=== PATIENT | female | born 1955 | race Caucasian/White ===

== ENCOUNTER 2018-11-03 13:12 | Emergency (ER) | payer MEDICARE, MEDICAID ==
[~2018-11-03] VITALS: Ht 144.8 cm; Wt 39.0 kg
[~2018-11-03 13:12] MED LIST: BSP10T PO; CPR250T PO; MEDR150D4 IM; OMEP-10 PO; RISP1TAB PO
--- OUTSIDE RECORDS SUMMARY | 2018-11-03 13:18 | XMS REPORT ---
Author Author STEVE QUIROS Organization [facility] Address [address] [place] [address] Care Team Providers Care Work Study Student Name Role Phone STEVE QUIROS Unavailable PROBLEMS Type Condition ICD9-CM Code EOR30-GG Code Onset Dates Condition Status SNOMED Code Problem Raynaud disease I73.00 Active 718044483 Problem Mood swings F39 Active 44612045 Problem Mental retardation F79 Active 12336408 Problem Esophagitis K20.9 Active 30067887 Problem Scoliosis, unspecified scoliosis type, unspecified spinal region M41.9 Active 986888073 Problem Anemia D64.9 Active 623015714 ALLERGIES No Information ENCOUNTERS Encounter Location Date Diagnosis [place] [address] [address] Apr, [place] [address] [address] Feb, Dental examination Z01.20 [place] [address] [address]- [address] 27 Feb, 2018 Medicare annual wellness visit, initial Z00.00 ; Raynaud disease I73.00 ; Mental retardation F79 and Encounter for immunization Z23 [place] [address] [place] [id number] [place] [address]- [address]99 Feb, Scoliosis, unspecified scoliosis type, unspecified spinal region M41.9 [place] [address] [address]- [address] Feb, [place] [address] [address]- [address] January, [place] [address] [address]- [address] Sep, [facility] [address] [address] Mar, Scoliosis, unspecified scoliosis type, unspecified spinal region M41.9 ; Mental retardation F79 and Breast cancer screening Z12.39 [facility] [address] [id number] [id number] Feb, Dental examination Z01.20 [place] [address] [place] [id number] [place] [address]63- 2404 Feb, Encounter for immunization Z23 [place] [address] [place] [id number] [place] [address] 26151- 9798 January, Anemia D64.9 and Screening, lipid Z13.220 [place] [address] [place] [id number] [place] [address] 94232- 2651 January, Screening, lipid Z13.220 ; Anemia D64.9 and Encounter for immunization Z23 [place] [address] [place] [id number] [place] [address] 17895- 1845 Dec, [place] [address] [place] [id number] [place] [address] 18006- 1767 Dec, Encounter for Depo-Provera contraception Z30.42 [place] [address] [place] [id number] [place] [address] 98427- 6942 Sep, Encounter for Depo-Provera contraception Z30.42 [facility] [address] [place] [id number] [place] [address] 79196 -6156 Jul, Tinea pedis of right foot B35.3 [place] [address] [place] [id number] [place] [address] 74570- 1156 Jun, Encounter for Depo-Provera contraception Z30.42 [facility] [address] [place] [id number] [place] [address] 24912- 0658 Apr, Encounter for Depo-Provera contraception Z30.42 [place] [address] [place] [address]- 05[address] January, Encounter for Depo-Provera contraception Z30.42 [facility] [id number] [place] [address] 99168- 7980 January, [facility] [address] [place] [id number] [address] Dec, Encounter for dental examination Z01.20 [facility] [address] [place] [id number] [place] [address] 51486- 2399 Nov, Anemia D64.9 ; Mental retardation F79 ; Scoliosis, unspecified scoliosis type, unspecified spinal region M41.9 ; Raynaud disease I73.00 ; Mood swings F39 and Screening, lipid Z13.220 [facility] [address] [place] [id number] [place] [address] 90040- 2147 Nov, Mental retardation F79 ; Scoliosis, unspecified scoliosis type, unspecified spinal region M41.9 ; Anemia D64.9 ; Raynaud disease I73.00 ; Mood swings F39 and Screening, lipid Z13.220 [facility] [id number] [place] [address] 19888- 1497 Oct, Encounter for Depo-Provera contraception Z30.42 [facility] [id number] [place] [address] 03398- 9740 Oct, [facility] [id number] [place] [address] 85114- 1170 Sep, [facility] [id number] [place] [address] 01631- 3742 Aug, Encounter for Depo-Provera contraception Z30.42 [facility] [address] [place] [id number] [place] [address] 36590- 7274 May, [facility] [id number] [place] [address] 65599- 1906 May, Encounter for Depo-Provera contraception V25.49 [facility] [address] [address] 6[address] 25 Feb, 2015 Encounter for contraceptive management V25.9 and Unspecified contraceptive management V25.9 [facility] [address] [facility] [id number] [address] 14 Dec, 2014 [facility] [address] [address]- 2090 Dec, [facility] [address] [facility] [id number] [address]- 1334 Oct, [facility] [id number] [place] [address] 1259 Oct, [facility] [address] [address] 0415 Oct, [facility] [address] [address]- 0226 Oct, [facility] [address] [address]- 2921 Oct, [facility] [address] [address]- 9381 Sep, [facility] [address] [address]- 5632 Sep, [facility] [address] [address]- 4160 Sep, [facility] [address] [place] [id number] [address]- 4578 Sep, [facility] [address] [address]- 9068 Aug, [facility] [address] [address] Aug, [facility] [address] [place] [id number] [address] Aug, [facility] [place] [facility] [address] [id number] [place] [address]- 2804 Aug, [facility] [place] [facility] [address] [id number] [place] [address]- 5222 Jul, [facility] [place] [facility] [address] [id number] [place] [address]- 2093 Jul, [facility] [place] [facility] [address] [id number] [place] [address]- 6785 Jul, [facility] [place] [facility] [address] [id number] [place] [address]- 1425 Jul, [facility] [place] [facility] [address] [id number] [place] [address]- 3379 Jun, [facility] [place] [facility] [address] [id number] [place] [address] Jun, [facility] [place] [facility] [address] [id number] [place] [address]- 6725 Jun, [facility] [place] [facility] [address] [id number] [place] [address]- 3338 Jun, [facility] [place] [facility] [address] [id number] [place] [address]- 9179 Apr, [facility] [place] [facility] [address] [id number] [place] [address] Apr, [facility] [place] [facility] [address] [id number] [place] [address]- 7723 Mar, [facility] [place] [facility] [address] [id number] [place] [address]- 8939 Mar, [facility] [place] [facility] [address] [id number] [place] [address]- 0616 Mar, [facility] [place] [facility] [address] [id number] [place] [address]- 1707 Mar, [facility] [place] [facility] [address] [id number] [place] [address]- 7772 Feb, [facility] [place] [facility] [address] [id number] [place] [address]- 2441 Feb, [facility] [place] [facility] [address] [id number] [place] [address]- 6441 Dec, [facility] [place] [facility] [address] [id number] [place] [address]- 2757 Dec, [facility] [place] [facility] [address] [id number] [place] [address]- 8063 Dec, [facility] [place] [facility] [address] [id number] [place] [address]- 0785 Dec, [facility] [place] [facility] [address] [id number] [place] [address]- 1160 Dec, [facility] [place] [facility] [address] [id number] [place] [address]- 9475 Dec, [facility] [place] [facility] [address] [id number] [place] [address]- 2387 Dec, [facility] [place] [facility] [address] [id number] [place] [address]- 8160 Nov, [facility] [place] [facility] [address] [id number] [place] [address]- 3539 Nov, [facility] [place] [facility] [address] [id number] [place] [address]- 9491 Oct, [facility] [place] [facility] [address] [id number] [place] [address]- 6451 Oct, [facility] [place] [facility] [address] [id number] [place] [address]- 7411 Sep, [facility] [place] [facility] [address] [id number] [place] [address]- 3722 Sep, [facility] [place] [facility] [address] [id number] [place] [address]- 1225 Aug, [facility] [place] [facility] [address] [id number] [place] [address]- 0973 Aug, [facility] [address] [id number] [place] [address]- 9753 Jul, [facility] [place] [facility] [address] [id number] [place] [address]- 4376 Jul, [facility] [address] [id number] [place] [address]- 6970 Jul, [facility] [place] [facility] [address] [id number] [place] [address]- 6531 Jul, [facility] [address] [id number] [place] [address]- 0558 Jun, [facility] [place] [facility] [address] [id number] [place] [address] Jun, [facility] [address] [id number] [place] [address]- 3939 Jun, [facility] [address] [id number] [place] [address]- 6473 Jun, [facility] [place] [facility] [address] [id number] [place] [address]- 2085 Apr, [facility] [address] [id number] [place] [address]- 5166 Apr, [facility] [place] [facility] [address] [id number] [place] [address]- 0306 Mar, [facility] [place] [facility] [address] [id number] [place] [address]- 6401 Feb, [facility] [place] [facility] [address] [id number] [place] [address]- 0075 January, [facility] [place] [facility] [address] [id number] [place] [address]- 2546 January, [facility] [place] [facility] [address] [id number] [place] [address]- 9156 Nov, [facility] [place] [facility] [address] [id number] [place] [address]- 9077 Oct, [facility] [place] [facility] [address] [id number] [place] [address]- 7670 Oct, [facility] [place] [facility] [address] [id number] [place] [address]- 5057 Sep, [facility] [place] [facility] [address] [id number] [place] [address]- 2534 Aug, [facility] [place] [facility] [address] [id number] [place] [address]- 2286 Jul, [facility] [place] [facility] [address] [id number] [place] [address]- 4007 Jul, [facility] [place] [facility] [address] [id number] [place] [address]- 3413 Jul, [facility] [place] [facility] [address] [id number] [place] [address]- 0167 Jul, [facility] [place] [facility] [address] [id number] [place] [address]- 3639 Jul, [facility] [place] [facility] [address] [facility] [id number] [address]- 1801 Jul, [facility] [place] [facility] [address] [id number] [place] [address]- 8457 Jun, [facility] [place] [facility] [address] [id number] [place] [address]- 1336 Jun, [facility] [place] [facility] [address] [id number] [place] [address]- 9399 May, [facility] [place] [facility] [address] [id number] [place] [address]- 8288 17 May, 2012 [facility] [place] [facility] [address] [facility] [id number] [place] 2880 11 May, 2012 [facility] [place] [facility] [address] [id number] [place] [address]- 8764 Apr, [facility] [address] [id number] [place] [address]- 2167 Apr, [facility] [place] [facility] [address] [id number] [place] [address]- 3960 Apr, [facility] [place] [facility] [address] [id number] [place] [address]- 7646 Apr, [facility] [place] [facility] [address] [id number] [place] [address]- 6902 Feb, [facility] [place] [facility] [address] [id number] [place] [address]- 4642 Feb, [facility] [place] [facility] [address] [id number] [place] [address]- 0901 January, [facility] [address] [id number] [place] [address]- 9643 January, [facility] [place] [facility] [address] [id number] [place] [address]- 5482 Dec, [facility] [place] [facility] [address] [id number] [place] [address]- 8067 Oct, [facility] [place] [facility] [address] [id number] [place] [address]- 3071 Oct, [facility] [place] [facility] [id number] [place] [address]- 9000 Oct, [facility] [place] [facility] [address] [id number] [place] [address]- 3079 Sep, [facility] [place] [facility] [address] [id number] [place] [address]- 0022 Sep, [facility] [place] [facility] [address] [id number] [place] [address]- 5907 Sep, [facility] [place] [facility] [address] [id number] [place] [address]- 1916 Sep, [facility] [place] [facility] [address] [id number] [place] [address]- 4988 Sep, [facility] [place] [facility] [address] [id number] [place] [address]- 2799 Sep, [facility] [place] [facility] [address] [id number] [place] [address]- 6873 Jul, [facility] [place] [facility] [address] [id number] [place] [address], [place] [address]- 1287 Jul, [facility] [place] [facility] [address] [id number] [place] [address]- 7013 Jul, [facility] [place] [facility] [address] [id number] [place] [address]- 4145 Jul, [facility] [place] [facility] [address] [id number] [place] [address]- 3030 Jul, [facility] [place] [facility] [address] [id number] [place] [address]- 5860 Jun, [facility] [place] [facility] [address] [id number] [place] [address]- 8664 Mar, [facility] [place] [facility] [address] [id number] [place] [address]- 3163 Jul, [facility] [place] [facility] [address] [id number] [place] [address]- 1484 17 Jul, 2010 [facility] [place] [facility] [address] [id number] [place] [address]- 3240 Jul, [facility] [place] [facility] [address] [id number] [place] [address]- 2492 27 Jun, 2010 [facility] [place] [facility] [address] [id number] [place] [address]- 5827 Jun, [facility] [place] [facility] [address] [id number] [place] [address]- 4181 18 Jun, 2010 [facility] [place] [facility] [address] [id number] [place] [address]- 0856 Nov, [facility] [address] [facility] [id number] [address]- 2546 Oct, [facility] [address] [id number] [address]- 2546 Aug, [facility] [address] [facility] [id number] [place] [address] 2546 Jun, [facility] [address] [id number] [address]- 5796 Jun, IMMUNIZATIONS No Known Immunizations SOCIAL HISTORY Never Assessed REASON FOR VISIT Back Brace f/u PLAN OF CARE VITAL SIGNS MEDICATIONS Unknown Medications RESULTS No Results PROCEDURES No Known procedures INSTRUCTIONS MEDICATIONS ADMINISTERED No Known Medications MEDICAL (GENERAL) HISTORY Type Description Date Medical History Profound MR Medical History Esophagitis Medical History History of Anemia Medical History Severe scoliosis Medical History Stereotypical habit disorder Surgical History teeth extraction
--- OUTSIDE RECORDS SUMMARY | 2018-11-03 13:18 | XMS REPORT ---
Author Author ANDREI OWENS [facility] Address [address] [place] [address] Care Team Providers Care Slaughterer Religious Ritual Name Role Phone ANDREI OWENS Unavailable PROBLEMS Type Condition ICD9-CM Code TCS55-ZO Code Onset Dates Condition Status SNOMED Code Problem Raynaud disease I73.00 Active 301856888 Problem Mood swings F39 Active 57765399 Problem Mental retardation F79 Active 00241764 Problem Esophagitis K20.9 Active 81231781 Problem Scoliosis, unspecified scoliosis type, unspecified spinal region M41.9 Active 156585868 Problem Anemia D64.9 Active 347463784 ALLERGIES Substance Reaction Event Type Date Status Tuberculin PPD Unknown Drug Allergy Feb, Active avoid citrus/pineapple Unknown Non Drug Allergy Feb, Active ENCOUNTERS Encounter Location Date Diagnosis [place] [address] [address] Apr, [place] [address] 75883- 0988 Feb, Dental examination Z01.20 [place] [address] [place] [id number] [place] [address] 15951- 8383 Feb, Medicare annual wellness visit, initial Z00.00 ; Raynaud disease I73.00 ; Mental retardation F79 and Encounter for immunization Z23 [place] [address] [place] [id number] [place] [address] 86977- 3446 Feb, Scoliosis, unspecified scoliosis type, unspecified spinal region M41.9 [place] [address] [place] [id number] [place] [address] 07785- 4199 Feb, [place] [address] [address]- [address]556 January, [facility] [id number] [place] [address] 43945- 5028 Sep, [facility] [address] [place] [id number] [place] [address] 26002- 0000 Mar, Scoliosis, unspecified scoliosis type, unspecified spinal region M41.9 ; Mental retardation F79 and Breast cancer screening Z12.[address] [id number] [id number] Feb, Dental examination Z01.20 [place] [id number] [place] [address] 71419- 9460 Feb, Encounter for immunization Z23 [place] [id number] [place] [address] 48726- 0564 January, Anemia D64.9 and Screening, lipid Z13.220 [place] [id number] [place] [address] 06307- 1572 January, Screening, lipid Z13.220 ; Anemia D64.9 and Encounter for immunization Z23 [place] [address] [place] [id number] [place] [address] 57213- 0063 Dec, [place] [address] [place] [id number] [place] [address] 86007- 4536 Dec, Encounter for Depo-Provera contraception Z30.42 [place] [address] [place] [id number] [place] [address] 90383- 8882 Sep, Encounter for Depo-Provera contraception Z30.42 [facility] [address] [place] [id number] [place] [address] 63777 -9732 Jul, Tinea pedis of right foot B35.3 [place] [address] [place] [id number] [place] [address] 90363- 6911 Jun, Encounter for Depo-Provera contraception Z30.42 [facility] [address] [place] [id number] [place] [address] 18306- 9875 Apr, Encounter for Depo-Provera contraception Z30.42 [facility] [address] [address] 26[address] January, Encounter for Depo-Provera contraception Z30.42 [facility] [address] [place] [id number] [place] [address] 64716- 7496 January, [facility] [address] [place] [id number] [place] [id number] Dec, Encounter for dental examination Z01.20 [facility] [address] [place] [id number] [place] [address] 84601- 8149 Nov, Anemia D64.9 ; Mental retardation F79 ; Scoliosis, unspecified scoliosis type, unspecified spinal region M41.9 ; Raynaud disease I73.00 ; Mood swings F39 and Screening, lipid Z13.220 [facility] [address] [place] [id number] [place] [address] 28509- 2453 Nov, Mental retardation F79 ; Scoliosis, unspecified scoliosis type, unspecified spinal region M41.9 ; Anemia D64.9 ; Raynaud disease I73.00 ; Mood swings F39 and Screening, lipid Z13.220 [facility] [id number] [place] [address] 22067- 8173 Oct, Encounter for Depo-Provera contraception Z30.42 [facility] [address] [place] [address] 37326- 0139 Oct, [facility] [address] [place] [id number] [place] [address] 19106- 6405 Sep, [facility] [address] [place] [id number] [place] [address] 78651- 7532 Aug, Encounter for Depo-Provera contraception Z30.42 [facility] [address] [place] [address] 05874- 8367 May, [facility] [address] [place] [id number] [place] [address] 31031- 0460 May, Encounter for Depo-Provera contraception V25.49 [facility] [address] 118[address] Feb, Encounter for contraceptive management V25.9 and Unspecified contraceptive management V25.9 [facility] [address] [address] 1856 14 Dec, 2014 [facility] [address] [place] [address] 64310- 7804 Dec, [facility] [address] [address]- 9591 Oct, [facility] [address] [place] [address] 587927- 7396 Oct, [facility] [address] [place] [address] 73756- 5183 Oct, [facility] [address] [address]- 1497 Oct, [facility] [address] [address]- 8396 Oct, [facility] [address] [address]- 3174 Sep, [facility] [address] [address]- 8850 Sep, [facility] [address] [address]- 9835 Sep, [facility] [address] 3470 Sep, [facility] [address] 0468 Aug, [facility] [address] 8121 Aug, [facility] [place] [facility] [address] [id number] [place] [address]- 7035 Aug, [facility] [place] [facility] [address] [id number] [place] [address]- 7379 Aug, [facility] [place] [facility] [address] [id number] [place] [address]- 3173 Jul, [facility] [place] [facility] [address] [id number] [place] [address]- 2760 Jul, [facility] [place] [facility] [address] [id number] [place] 6508 Jul, [facility] [place] [facility] [address] [id number] [place] [address]- 6712 Jul, [facility] [place] [facility] [address] [id number] [place] 5794 Jun, [facility] [place] [facility] [address] [id number] [place] [address]- 1554 Jun, [facility] [place] [facility] [address] [id number] [place] [address]- 2277 Jun, [facility] [place] [facility] [address] [id number] [place] [address]- 2485 Jun, [facility] [place] [facility] [address] [id number] [place] [address]- 1857 Apr, [facility] [place] [facility] [address] [id number] [place] [address]- 9005 Apr, [facility] [place] [facility] [address] [id number] [place] [address]- 6936 Mar, [facility] [place] [facility] [address] [id number] [place] [address]- 5294 Mar, [facility] [place] [facility] [address] [id number] [place] [address]- 1608 Mar, [facility] [place] [facility] [address] [id number] [place] [address]- 9671 Mar, [facility] [place] [facility] [address] [id number] [place] [address]- 3024 Feb, [facility] [place] [facility] [address] [id number] [place] [address]- 2446 Feb, [facility] [place] [facility] [address] [id number] [place] [address]- 9994 Dec, [facility] [place] [facility] [address] [id number] [place] [address]- 0178 Dec, [facility] [place] [facility] [address] [id number] [place] [address]- 3476 Dec, [facility] [place] [facility] [address] [id number] [place] [address]- 9245 Dec, [facility] [place] [facility] [address] [id number] [place] [address]- 9672 Dec, [facility] [place] [facility] [address] [id number] [place] [address]- 1396 Dec, [facility] [place] [facility] [address] [id number] [place] [address]- 7731 Dec, [facility] [place] [facility] [address] [id number] [place] [address]- 5313 Nov, [facility] [place] [facility] [address] [id number] [place] [address]- 5751 Nov, [facility] [place] [facility] [address] [id number], [place] [address]- 9988 Oct, [facility] [place] [facility] [address] [id number] [place] [address]- 8047 Oct, [facility] [place] [facility] [address] [id number] [place] [address]- 4744 Sep, [facility] [place] [facility] [address] [id number] [place] [address]- 8931 Sep, [facility] [place] [facility] [address] [id number] [place] [address]- 3139 Aug, [facility] [address] [id number] [place] [address]- 4561 Aug, [facility] [place] [facility] [address] [id number] [place] [address]- 4709 Jul, [facility] [address] [id number] [place] [address]- 8987 Jul, [facility] [place] [facility] [address] [id number] [place] [address]- 0103 Jul, [facility] [address] [id number] [place] [address]- 4953 Jul, [facility] [address] [id number] [place] [address]- 2048 Jun, [facility] [address] [id number] [place] [address]- 8795 Jun, [facility] [address] [id number] [place] [address]- 8420 Jun, [facility] [address] [id number] [place] [address]- 7148 Jun, [facility] [address] [id number] [place] [address]- 3292 Apr, [facility] [place] [facility] [address] [id number] [place] [address]- 8537 Apr, [facility] [place] [facility] [address] [id number] [place] [address]- 2475 Mar, [facility] [place] [facility] [address] [id number] [place] [address]- 3232 Feb, [facility] [place] [facility] [address] [id number] [place] [address]- 2546 January, [facility] [place] [facility] [address] [id number] [place] [address]- 4674 January, [facility] [place] [facility] [address] [id number] [place] [address]- 9107 Nov, [facility] [place] [facility] [address] [id number] [place] [address]- 0692 Oct, [facility] [place] [facility] [address] [id number] [place] [address]- 8106 Oct, [facility] [place] [facility] [address] [id number] [place] [address]- 7238 Sep, [facility] [place] [facility] [address] [id number] [place] [address]- 4489 Aug, [facility] [place] [facility] [address] [id number] [place] [address]- 4550 Jul, [facility] [place] [facility] [address] [id number] [place] [address]- 6826 Jul, [facility] [place] [facility] [address] [id number] [place] [address]- 7579 Jul, [facility] [place] [facility] [address] [id number] [place] [address]- 7339 Jul, [facility] [place] [facility] [address] [id number] [place] [address]- 1670 Jul, [facility] [place] [facility] [address] [id number] [place] [address]- 4986 Jul, [facility] [place] [facility] [address] [id number], [place] [address]- 0307 Jun, [facility] [place] [facility] [address] [id number] [place] [address]- 2400 Jun, [facility] [place] [facility] [address] [id number] [place] [address]- 9266 May, [facility] [place] [facility] [address] [id number] [place] [address]- 4016 17 May, 2012 [facility] [place] [facility] [address] [id number] [place] [address]- 0365 May, [facility] [place] [facility] [address] [id number] [place] [address]- 0398 Apr, [facility] [place] [facility] [address] [id number] [place] [address]- 0705 Apr, [facility] [place] [facility] [address] [id number] [place] [address]- 3234 Apr, [facility] [place] [facility] [address] [id number] [place] [address]- 8734 Apr, [facility] [place] [facility] [address] [id number] [place] [address]- 3398 Feb, [facility] [place] [facility] [address] [id number] [place] [address]- 8813 Feb, [facility] [place] [facility] [address] [id number] [place] [address]- 8138 January, [facility] [place] [facility] [address] [id number] [place] [address]- 7876 January, [facility] [place] [facility] [address] [id number] [place] [address]- 5041 Dec, [facility] [place] [facility] [address] [id number] [place] [address]- 5163 Oct, [facility] [place] [facility] [address] [id number] [place] [address]- 3489 16 Oct, 2011 [facility] [place] [facility] [address] [id number] [place] [address]- 1821 Oct, [facility] [place] [facility] [address] [id number] [place] [address]- 6620 Sep, [facility] [place] [facility] [address] [id number] [place] [address]- 6680 Sep, [facility] [place] [facility] [address] [id number] [place] [address]- 3680 Sep, [facility] [place] [facility] [address] [id number] [place] [address]- 8047 Sep, [facility] [place] [facility] [address] [id number] [place] [address]- 1002 Sep, [facility] [place] [facility] [address] [id number] [place] [address]- 6953 Sep, [facility] [place] [facility] [address] [id number] [place] [address], [place] [address]- 8518 Jul, [facility] [place] [facility] [address] [id number] [place] [address]- 4580 Jul, [facility] [place] [facility] [address] [id number] [place] [address]- 1255 Jul, [facility] [place] [facility] [address] [id number] [place] [address]- 9874 Jul, [facility] [place] [facility] [address] [id number] [place] [address]- 7997 Jul, [facility] [place] [facility] [address] [id number] [place] [address]- 7608 Jun, [facility] [place] [facility] [address] [id number] [place] [address]- 7751 Mar, [facility] [place] [facility] [address] [id number] [place] [address]- 9260 Jul, [facility] [place] [facility] [address] [id number], [place] [address]- 6657 Jul, [facility] [place] [facility] [address] [id number] [place] [address]- 1510 Jul, [facility] [place] [facility] [address] [id number] [place] [address]- 9931 Jun, [facility] [place] [facility] [address] [id number] [place] [address]- 2352 Jun, [facility] [place] [facility] [address] [id number], [place] [address]- 2546 Jun, [facility] [address] [facility] [id number], [place] [address]- 2546 Nov, [facility] [address] [facility] [id number], [place] [address]- 2546 Oct, [facility] [address] [facility] [id number], [place] [address]- 2546 Aug, [facility] [address] [facility] [id number], [place] [address]- 2546 Jun, [facility] [address] [facility] [id number], [place] [address] 2546 Jun, IMMUNIZATIONS No Known Immunizations SOCIAL HISTORY Never Assessed REASON FOR VISIT soft tissue check in internal med PLAN OF CARE Activity Details Follow Up prn Reason: VITAL SIGNS MEDICATIONS Medication Instructions Dosage Frequency Start Date End Date Duration Status Naproxen Sodium 220 mg take 1 tablet (220 mg) by oral route every 8 hours as needed Sep, Active Omeprazole 20 MG TAKE 1 CAPSULE BY MOUTH DAILY 31 Active Acetaminophen 500 mg 2 Tablet 2 times per day Sep, Active BusPIRone HCl 15 MG 1 tablet by Oral route 2 times per day for anxiety 31 Active Amlodipine Besylate 2.5 MG TAKE 1 TABLET ORALLY DAILY 31 Active Colace 100 MG 1 capsule by Oral route 1 time per day at bedtime 31 Active RESULTS No Results PROCEDURES Procedure Date Ordered Result Body Site SCREENING OF A PATIENT March 19, 2018 Billing Notes on claim March 19, 2018 INSTRUCTIONS MEDICATIONS ADMINISTERED No Known Medications MEDICAL (GENERAL) HISTORY Type Description Date Medical History Profound MR Medical History Esophagitis Medical History History of Anemia Medical History Severe scoliosis Medical History Stereotypical habit disorder Surgical History teeth extraction
--- OUTSIDE RECORDS SUMMARY | 2018-11-03 13:18 | XMS REPORT ---
Author Author STEVE QUIROS Organization [facility] Address [address] [place] [address] Care Team Providers Care Manager Orange Name Role Phone STEVE QUIROS Unavailable PROBLEMS Type Condition ICD9-CM Code YLT83-OE Code Onset Dates Condition Status SNOMED Code Problem Raynaud disease I73.00 Active 007787349 Problem Mood swings F39 Active 75249604 Problem Mental retardation F79 Active 87193625 Problem Esophagitis K20.9 Active 40218356 Problem Scoliosis, unspecified scoliosis type, unspecified spinal region M41.9 Active 176582077 Problem Anemia D64.9 Active 940966337 ALLERGIES No Information ENCOUNTERS Encounter Location Date Diagnosis [facility] [id number] [place] [address]01 -1464 Aug, Encounter for immunization Z23 [facility] [address] [address]- [address] Jun, [facility] [id number] [place] [address] 78808- 7260 Apr, [facility] [id number] [place] [address] 67581- 2228 Feb, Dental examination Z01.20 [facility] [id number] [place] [address] 51557- 7164 Feb, Medicare annual wellness visit, initial Z00.00 ; Raynaud disease I73.00 ; Mental retardation F79 and Encounter for immunization Z23 [facility] [id number] [place] [address] 75324- 8299 Feb, Scoliosis, unspecified scoliosis type, unspecified spinal region M41.9 [facility] [address] [address]- 7685 Feb, [facility] [address] [address] 4107 January, [facility] [id number] [place] [address] 34230- 7950 Sep, [facility] [id number] [place] [address] 03249- 0027 Mar, Scoliosis, unspecified scoliosis type, unspecified spinal region M41.9 ; Mental retardation F79 and Breast cancer screening Z12.[address] [id number] [id number] Feb, Dental examination Z01.20 [place] [id number] [place] [address] 37007- 1490 Feb, Encounter for immunization Z23 [id number] [place] [address] 41089- 4214 January, Anemia D64.9 and Screening, lipid Z13.220 [id number] [place] [address] 25822- 1823 January, Screening, lipid Z13.220 ; Anemia D64.9 and Encounter for immunization Z23 [place] [id number] [place] [address] 85659- 9043 Dec, [facility] [id number] [place] [address] 99645- 1464 Dec, Encounter for Depo-Provera contraception Z30.42 [place] [id number] [place] [address] 29668- 5660 Sep, Encounter for Depo-Provera contraception Z30.42 [facility] [id number] [place] [address] 72268 -6566 Jul, Tinea pedis of right foot B35.3 [place] [id number] [place] [address] 87719- 2065 Jun, Encounter for Depo-Provera contraception Z30.42 [facility] [address] [address]- 5983 Apr, Encounter for Depo-Provera contraception Z30.42 [facility] [address] [address] 2776 January, Encounter for Depo-Provera contraception Z30.42 [facility] [id number] [place] [address] 99571- 4548 January, [facility] [id number] [place] [address] [id number] Dec, Encounter for dental examination Z01.20 [facility] [id number] [place] [address] 40680- 9109 Nov, Anemia D64.9 ; Mental retardation F79 ; Scoliosis, unspecified scoliosis type, unspecified spinal region M41.9 ; Raynaud disease I73.00 ; Mood swings F39 and Screening, lipid Z13.220 [facility] [id number] [place] [address] 06646- 9195 Nov, Mental retardation F79 ; Scoliosis, unspecified scoliosis type, unspecified spinal region M41.9 ; Anemia D64.9 ; Raynaud disease I73.00 ; Mood swings F39 and Screening, lipid Z13.220 [facility] [address] [address]- 9491 Oct, Encounter for Depo-Provera contraception Z30.42 [facility] [address] [address]- 9673 Oct, [facility] [id number] [place] [address] 96510- 0207 Sep, [facility] [id number] [place] [address] 29166- 9689 Aug, Encounter for Depo-Provera contraception Z30.42 [facility] [address] [address] 65[address] May, [facility] [address] [address]- 4769 May, Encounter for Depo-Provera contraception V25.49 [facility] [address] [address]- 2204 Feb, Encounter for contraceptive management V25.9 and Unspecified contraceptive management V25.9 [facility] [address] [address]- 1805 Dec, [facility] [id number] [place] [address] 59076- 4021 Dec, [facility] [id number] [place] [address] 64550- 3410 Oct, [facility] [id number] [place] [address] 99372- 7584 Oct, [facility] [address] [address]- 4544 Oct, [facility] [id number] [place] [address] 98471- 0936 Oct, [facility] [address] [address]- 8819 Oct, [facility] [address] [address]- 6520 Sep, [facility] [address] [address]- 2248 Sep, [facility] [address] [place] 9892 Sep, [facility] [address] [address]- 9563 Sep, [facility] [address] [place] [address] Aug, [facility] [place] [facility] [address] [id number] [place] [address]- 6185 Aug, [facility] [place] [facility] [address] [id number] [place] [address]- 5439 Aug, [facility] [place] [facility] [address] [id number] [place] [address]- 8164 Aug, [facility] [place] [facility] [address] [id number] [place] [address]- 8254 Jul, [facility] [place] [facility] [address] [id number] [place] [address]- 1754 Jul, [facility] [place] [facility] [address] [id number] [place] [address]- 8231 Jul, [facility] [place] [facility] [address] [id number] [place] [address]- 8313 Jul, [facility] [place] [facility] [address] [id number] [place] [address]- 1395 Jun, [facility] [place] [facility] [address] [id number] [place] [address]- 6443 Jun, [facility] [place] [facility] [address] [id number] [place] [address]- 3016 Jun, [facility] [place] [facility] [address] [id number] [place] [address]- 3649 Jun, [facility] [place] [facility] [address] [id number] [place] [address]- 8683 Apr, [facility] [place] [facility] [address] [id number] [place] [address]- 1862 Apr, [facility] [place] [facility] [address] [id number] [place] [address]- 6486 Mar, [facility] [place] [facility] [address] [id number] [place] [address]- 9486 Mar, [facility] [place] [facility] [address] [id number] [place] [address]- 8473 Mar, [facility] [place] [facility] [address] [id number] [place] [address]- 3184 Mar, [facility] [place] [facility] [address] [id number] [place] [address]- 2493 Feb, [facility] [place] [facility] [address] [id number] [place] [address]- 4529 Feb, [facility] [place] [facility] [address] [id number] [place] [address]- 9567 Dec, [facility] [place] [facility] [address] [id number] [place] [address]- 9231 Dec, [facility] [place] [facility] [address] [id number] [place] [address]- 6741 Dec, [facility] [place] [facility] [address] [id number] [place] [address]- 6667 Dec, [facility] [place] [facility] [address] [id number] [place] [address]- 0616 Dec, [facility] [place] [facility] [address] [id number] [place] [address]- 0608 Dec, [facility] [place] [facility] [address] [facility] [id number] [place] [address]- 6587 Dec, [facility] [place] [facility] [address] [id number] [place] [address]- 1996 Nov, [facility] [place] [facility] [address] [id number] [place] [address]- 9645 Nov, [facility] [place] [facility] [address] [id number] [place] [address]- 5490 Oct, [facility] [place] [facility] [address] [id number] [place] [address]- 3726 Oct, [facility] [place] [facility] [address] [facility] [id number] [place] [address]- 8372 Sep, [facility] [place] [facility] [address] [id number] [place] [address]- 0343 Sep, [facility] [place] [facility] [address] [id number] [place] [address] Aug, [facility] [place] [facility] [address] [id number] [place]056 Aug, [facility] [place] [facility] [address] [id number] [place] [address]- 7699 Jul, [facility] [place] [facility] [address] [id number] [place] [address]- 3154 Jul, [facility] [place] [facility] [address] [id number] [place] [address]- 3924 Jul, [facility] [place] [facility] [address] [id number] [place] 0181 Jul, [facility] [place] [facility] [address] [id number] [place] [address]- 3807 Jun, [facility] [place] [facility] [address] [id number] [place] [address]- 8402 Jun, [facility] [place] [facility] [address] [id number] [place] [address]- 3073 Jun, [facility] [place] [facility] [address] [id number] [place] [address]- 5646 Jun, [facility] [place] [facility] [address] [id number] [place] [address]- 7779 Apr, [facility] [place] [facility] [address] [id number] [place] [address]- 6447 Apr, [facility] [place] [facility] [address] [id number] [place] [address]- 3689 Mar, [facility] [place] [facility] [address] [id number] [place] [address]- 6302 Feb, [facility] [place] [facility] [address] [id number] [place] [address]- 2096 January, [facility] [place] [facility] [address] [id number] [place] [address]- 9010 January, [facility] [place] [facility] [address] [id number] [place] [address]- 5873 Nov, [facility] [place] [facility] [address] [facility] [id number] [place] [address]- 4743 Oct, [facility] [place] [facility] [address] [id number] [place] [address]- 6730 Oct, [facility] [place] [facility] [address] [id number] [place] [address]- 2451 Sep, [facility] [place] [facility] [address] [id number] [place] [address]- 0095 Aug, [facility] [place] [facility] [address] [id number] [place] [address]- 9328 Jul, [facility] [place] [facility] [address] [id number] [place] [address]- 6064 Jul, [facility] [place] [facility] [address] [id number] [place] [address]- 0081 Jul, [facility] [place] [facility] [address] [id number] [place] [address]- 5004 Jul, [facility] [place] [facility] [address] [facility] [id number] [place] [address]- 7051 Jul, [facility] [place] [facility] [address] [id number] [place] [address]- 9916 Jul, [facility] [place] [facility] [address] [id number] [place] [address]- 5929 Jun, [facility] [place] [facility] [address] [facility] [id number] [place] [address]- 5637 Jun, [facility] [place] [facility] [address] [facility] [id number] [place] [address]- 2216 May, [facility] [place] [facility] [address] [id number] [place] [address]- 9828 17 May, 2012 [facility] [address] [id number] [place] [address]- 5460 May, [facility] [address] [id number] [place] [address]- 3664 31 Apr, 2012 [facility] [address] [id number] [place] [address]- 3494 Apr, [facility] [address] [id number] [place] [address]- 0464 Apr, [facility] [address] [id number] [place] [address]- 6399 Apr, [facility] [address] [id number] [place] [address]- 1920 Feb, [facility] [address] [id number] [place] [address]- 8637 Feb, [facility] [address] [id number] [place] [address]- 6078 January, [facility] [address] [id number] [place] [address]- 0391 January, [facility] [address] [id number] [place] [address]- 0225 Dec, [facility] [address] [id number] [place] [address]- 5976 29 Oct, 2011 [facility] [address] [id number] [place] [address]- 7456 16 Oct, 2011 [facility] [place] [facility] [address] [id number] [place] [address]- 2736 Oct, [facility] [place] [facility] [address] [id number] [place] [address]- 2686 Sep, [facility] [place] [facility] [address] [id number] [place] [address]- 7462 Sep, [facility] [place] [facility] [address] [id number] [place] [address]- 4883 Sep, [facility] [place] [facility] [address] [id number] [place] [address]- 9673 Sep, [facility] [place] [facility] [address] [id number] [place] [address]- 9642 Sep, [facility] [place] [facility] [address] [id number] [place] [address]- 3724 Sep, [facility] [place] [facility] [address] [id number] [place] [address]- 9245 Jul, [facility] [place] [facility] [address] [id number] [place] [address]- 0481 Jul, [facility] [place] [facility] [address] [id number] [place] [address]- 6451 Jul, [facility] [place] [facility] [address] [id number] [place] [address]- 7291 Jul, [facility] [place] [facility] [address] [id number] [place] [address]- 1345 Jul, [facility] [place] [facility] [address] [id number] [place] [address]- 3094 Jun, [facility] [place] [facility] [address] [id number] [place] [address]- 5492 Mar, [facility] [place] [facility] [address] [id number] [place] [address]- 5607 Jul, [facility] [place] [facility] [address] [id number] [place] [address]- 5929 17 Jul, 2010 [facility] [place] [facility] [address] [id number] [place] [address]- 6094 Jul, [facility] [place] [facility] [address] [id number] [place] [address]- 6915 Jun, [facility] [place] [facility] [id number] [address]- 4106 Jun, [facility] [id number] [address]- 5275 Jun, [facility] [id number] [address]- 7266 Nov, [facility] [id number] [address]- 5226 Oct, [facility] [address] [address]- 1768 Aug, [facility] [address] [address]- 7931 Jun, [facility] [id number] [address]- 7486 Jun, IMMUNIZATIONS Vaccine Route Administration Date Status FLULAVAL QUAD 0.5ML (6 MO & UP) 2017 IM Intramuscular Aug 23, 2018 Administered SOCIAL HISTORY Never Assessed REASON FOR VISIT Flu shot JStrasserRN PLAN OF CARE VITAL SIGNS MEDICATIONS Unknown Medications RESULTS No Results PROCEDURES Procedure Date Ordered Result Body Site FLULAVAL QUAD 0.5ML (6 MO & UP) 2018 Aug 23, 2018 SINGLE IMMUNIZATION ADMIN Aug 23, 2018 INSTRUCTIONS MEDICATIONS ADMINISTERED No Known Medications MEDICAL (GENERAL) HISTORY Type Description Date Medical History Profound MR Medical History Esophagitis Medical History History of Anemia Medical History Severe scoliosis Medical History Stereotypical habit disorder Surgical History teeth extraction
--- OUTSIDE RECORDS SUMMARY | 2018-11-03 13:19 | XMS REPORT ---
Author Author STEVE QUIROS Organization [facility] Address [address] [place] [address] Care Team Providers Care Detacker Name Role Phone STEVE QUIROS Unavailable PROBLEMS Type Condition ICD9-CM Code IBL36-OE Code Onset Dates Condition Status SNOMED Code Problem Raynaud disease I73.00 Active 420192922 Problem Mood swings F39 Active 61399780 Problem Mental retardation F79 Active 06399858 Problem Esophagitis K20.9 Active 93210581 Problem Scoliosis, unspecified scoliosis type, unspecified spinal region M41.9 Active 548958550 Problem Anemia D64.9 Active [id number] ALLERGIES No Information ENCOUNTERS Encounter Location Date Diagnosis [place] [address] [address] Apr, [place] [address] [address]- [address] Feb, Dental examination Z01.20 [place] [address] [address]- [address] 27 Feb, 2018 Medicare annual wellness visit, initial Z00.00 ; Raynaud disease I73.00 ; Mental retardation F79 and Encounter for immunization Z23 [place] [address] [place] [id number] [place] [address]20- 9437 Feb, Scoliosis, unspecified scoliosis type, unspecified spinal region M41.9 [place] [address] [address]- 5199 Feb, [place] [address] 6[address]68- 9537 January, [place] [address] [address]- 9685 Sep, [facility] [address], [place] [address] Mar, Scoliosis, unspecified scoliosis type, unspecified spinal region M41.9 ; Mental retardation F79 and Breast cancer screening Z12.39 [facility] [address] [id number] [id number] Feb, Dental examination Z01.20 [place] [address] [place] [id number] [place] [address] 01152- 2766 Feb, Encounter for immunization Z23 [place] [address] [place] [id number] [place] [address] 78893- 7704 January, Anemia D64.9 and Screening, lipid Z13.220 [place] [address] [place] [id number] [place] [address] 81985- 2695 January, Screening, lipid Z13.220 ; Anemia D64.9 and Encounter for immunization Z23 [place] [address] [place] [id number] [place] [address] 66898- 1304 Dec, [place] [address] [place] [id number] [place] [address] 31684- 8081 Dec, Encounter for Depo-Provera contraception Z30.42 [place] [address] [place] [id number] [place] [address] 97920- 7737 Sep, Encounter for Depo-Provera contraception Z30.42 [facility] [address] [place] [id number] [place] [address] 51579 -0241 Jul, Tinea pedis of right foot B35.3 [place] [address] [place] [id number] [place] [address] 37696- 0621 Jun, Encounter for Depo-Provera contraception Z30.42 [facility] [address] [place] [id number] [place] [address] 94818- 0162 Apr, Encounter for Depo-Provera contraception Z30.42 [place] [address] [place] [address]- 9250 January, Encounter for Depo-Provera contraception Z30.42 [facility] [address] [place] [address] 60744- 3329 January, [facility] [address] [place] [address] [id number] [id number] Dec, Encounter for dental examination Z01.20 [facility] [address] [place] [id number] [place] [address] 22901- 0592 Nov, Anemia D64.9 ; Mental retardation F79 ; Scoliosis, unspecified scoliosis type, unspecified spinal region M41.9 ; Raynaud disease I73.00 ; Mood swings F39 and Screening, lipid Z13.220 [facility] [address] [place] [id number] [place] [address] 08225- 5963 Nov, Mental retardation F79 ; Scoliosis, unspecified scoliosis type, unspecified spinal region M41.9 ; Anemia D64.9 ; Raynaud disease I73.00 ; Mood swings F39 and Screening, lipid Z13.220 [facility] [address] [place] [address] 89092- 8639 Oct, Encounter for Depo-Provera contraception Z30.42 [facility] [address] [place] [address] 01967- 3106 Oct, [facility] [address] [place] [address] 41821- 6869 Sep, [facility] [address] [place] [address] 42123- 6013 Aug, Encounter for Depo-Provera contraception Z30.42 [facility] [address] [place] [id number] [place] [address] 59916- 7545 May, [facility] [address] [place] [address] 14633- 3162 May, Encounter for Depo-Provera contraception V25.49 [facility] [address], [place] [address] 5933 25 Feb, 2015 Encounter for contraceptive management V25.9 and Unspecified contraceptive management V25.9 [facility] [address] [facility] [id number], [place] [address] 14 Dec, 2014 [facility] [address], [place] [address]- 4792 Dec, [facility] [address] [facility] [id number], [place] [address] 5508 Oct, [facility] [address] [address]- 5794 Oct, [facility] [address], [place] [address]- 6104 Oct, [facility] [address], [place] [address]- 7885 Oct, [facility] [address], [place] [address]- 7951 Oct, [facility] [address], [place] [address]- 3874 Sep, [facility] [address], [place] [address]- 2734 Sep, [facility] [address], [place] [address]- 3851 Sep, [facility] [address] [place] [id number] [address]- 8436 Sep, [facility] [address], [place] [address]- 8149 Aug, [facility] [address] [address] Aug, [facility] [address] [id number] [address] Aug, [facility] [place] [facility] [address] [id number] [place] [address]- 8620 Aug, [facility] [place] [facility] [address] [id number] [place] [address]- 6350 Jul, [facility] [place] [facility] [address] [id number] [place] [address]- 4251 Jul, [facility] [place] [facility] [address] [id number] [place] [address]- 5699 Jul, [facility] [place] [facility] [address] [id number] [place] [address]- 8378 Jul, [facility] [place] [facility] [address] [id number] [place] [address]- 1591 Jun, [facility] [place] [facility] [address] [id number] [place] [address] Jun, [facility] [place] [facility] [address] [id number] [place] [address]- 4434 Jun, [facility] [place] [facility] [address] [id number] [place] [address]- 6515 Jun, [facility] [place] [facility] [address] [id number] [place] [address]- 6921 Apr, [facility] [place] [facility] [address] [id number] [place] 9784 Apr, [facility] [place] [facility] [address] [id number] [place] [address]- 1848 Mar, [facility] [place] [facility] [address] [id number] [place] [address]- 9325 Mar, [facility] [place] [facility] [address] [id number] [place] [address]- 5085 Mar, [facility] [place] [facility] [address] [id number] [place] [address]- 8261 Mar, [facility] [place] [facility] [address] [id number] [place] [address]- 8890 Feb, [facility] [place] [facility] [address] [id number] [place] [address]- 9041 Feb, [facility] [place] [facility] [address] [id number] [place] [address]- 3743 Dec, [facility] [place] [facility] [address] [id number] [place] [address]- 9828 Dec, [facility] [place] [facility] [address] [id number] [place] [address]- 3930 Dec, [facility] [place] [facility] [address] [id number] [place] [address]- 3629 Dec, [facility] [place] [facility] [address] [id number] [place] [address]- 4548 Dec, [facility] [place] [facility] [address] [id number] [place] [address]- 9062 Dec, [facility] [place] [facility] [address] [id number] [place] [address]- 4463 Dec, [facility] [place] [facility] [address] [id number] [place] [address]- 3599 Nov, [facility] [place] [facility] [address] [id number] [place] [address]- 2620 Nov, [facility] [place] [facility] [address] [id number] [place] [address]- 3438 Oct, [facility] [place] [facility] [address] [id number] [place] [address]- 5097 Oct, [facility] [place] [facility] [address] [id number] [place] [address]- 7470 Sep, [facility] [place] [facility] [address] [id number] [place] [address]- 1567 Sep, [facility] [place] [facility] [address] [id number] [place] [address]- 5618 Aug, [facility] [place] [facility] [address] [id number] [place] [address]- 2033 Aug, [facility] [address] [id number] [place] [address]- 2829 Jul, [facility] [place] [facility] [address] [id number] [place] [address]- 7293 Jul, [facility] [address] [id number] [place] [address]- 4428 Jul, [facility] [place] [facility] [address] [id number] [place] [address]- 8183 Jul, [facility] [address] [id number] [place] [address]- 0605 Jun, [facility] [place] [facility] [address] [id number] [place]36 Jun, [facility] [address] [id number] [place] [address]- 5895 Jun, [facility] [address] [id number] [place] [address]- 3195 Jun, [facility] [place] [facility] [address] [id number] [place] [address]- 3596 Apr, [facility] [address] [id number] [place] [address]- 5165 Apr, [facility] [place] [facility] [address] [id number] [place] [address]- 6492 Mar, [facility] [place] [facility] [address] [id number] [place] [address]- 0086 Feb, [facility] [place] [facility] [address] [id number] [place] [address]- 7710 January, [facility] [place] [facility] [address] [id number] [place] [address]- 2546 January, [facility] [place] [facility] [address] [id number] [place] [address]- 7045 Nov, [facility] [place] [facility] [address] [id number] [place] [address]- 5512 Oct, [facility] [place] [facility] [address] [id number] [place] [address]- 6525 Oct, [facility] [place] [facility] [address] [id number] [place] [address]- 6886 Sep, [facility] [place] [facility] [address] [id number] [place] [address]- 2523 Aug, [facility] [place] [facility] [address] [id number] [place] [address]- 6793 Jul, [facility] [place] [facility] [address] [id number] [place] [address]- 3728 Jul, [facility] [place] [facility] [address] [id number] [place] [address]- 5892 Jul, [facility] [place] [facility] [address] [id number] [place] [address]- 5276 Jul, [facility] [place] [facility] [address] [id number] [place] [address]- 8699 Jul, [facility] [place] [facility] [address] [facility] [id number], [place] [address]- 1466 Jul, [facility] [place] [facility] [address] [id number], [place] [address]- 8649 Jun, [facility] [place] [facility] [address] [id number], [place] [address]- 0181 Jun, [facility] [place] [facility] [address] [id number] [place] [address]- 9301 May, [facility] [place] [facility] [address] [id number], [place] [address]- 5370 17 May, 2012 [facility] [place] [facility] [address] [facility] [id number][place] 2607 11 May, 2012 [facility] [place] [facility] [address] [id number], [place] [address]- 6504 Apr, [facility] [address] [id number] [place] [address]- 8119 Apr, [facility] [place] [facility] [address] [id number] [place] [address]- 9773 Apr, [facility] [place] [facility] [address] [id number] [place] [address]- 2796 Apr, [facility] [place] [facility] [address] [id number] [place] [address]- 7989 Feb, [facility] [place] [facility] [address] [id number] [place] [address]- 3983 Feb, [facility] [place] [facility] [address] [id number] [place] [address]- 0993 January, [facility] [address] [id number] [place] [address]- 9826 January, [facility] [place] [facility] [address] [id number] [place] [address]- 3690 Dec, [facility] [place] [facility] [address] [id number] [place] [address]- 6457 Oct, [facility] [place] [facility] [address] [id number] [place] [address]- 5985 Oct, [facility] [place] [facility] [address] [address] [id number] [place] [address]- 7892 Oct, [facility] [place] [facility] [address] [id number] [place] [address]- 7474 Sep, [facility] [place] [facility] [address] [id number] [place] [address]- 1370 Sep, [facility] [place] [facility] [address] [id number] [place] [address]- 1727 Sep, [facility] [place] [facility] [address] [id number] [place] [address]- 7203 Sep, [facility] [place] [facility] [address] [id number] [place] [address]- 2312 Sep, [facility] [place] [facility] [address] [id number] [place] [address]- 4406 Sep, [facility] [place] [facility] [address] [id number] [place] [address]- 1467 Jul, [facility] [place] [facility] [id number] [place] [address], [place] [address]- 3791 Jul, [facility] [place] [facility] [address] [id number] [place] [address]- 9263 Jul, [facility] [place] [facility] [address] [id number] [place] [address]- 2333 Jul, [facility] [place] [facility] [address] [id number] [place] [address]- 0622 Jul, [facility] [place] [facility] [address] [id number] [place] [address]- 2472 Jun, [facility] [place] [facility] [address] [id number] [place] [address]- 5364 Mar, [facility] [place] [facility] [address] [id number] [place] [address]- 7981 Jul, [facility] [place] [facility] [address] [id number] [place] [address]- 2478 17 Jul, 2010 [facility] [place] [facility] [address] [id number] [place] [address]- 1532 Jul, [facility] [place] [facility] [address] [id number] [place] [address]- 7702 27 Jun, 2010 [facility] [place] [facility] [address] [id number] [place] [address]- 0771 Jun, [facility] [place] [facility] [address] [id number] [place] [address]- 8581 18 Jun, 2010 [facility] [place] [facility] [address] [id number], [place] [address]- 9466 Nov, [facility] [address] [facility] [id number], [place] [address]- 2546 Oct, [facility] [address] [id number], [place] [address]- 2546 Aug, [facility] [address] [facility] [id number], [place] [address]- 2546 Jun, [facility] [address] [id number], [place] [address] 2546 Jun, IMMUNIZATIONS No Known Immunizations SOCIAL HISTORY Never Assessed REASON FOR VISIT Question about Back Brace PLAN OF CARE VITAL SIGNS MEDICATIONS Unknown Medications RESULTS No Results PROCEDURES No Known procedures INSTRUCTIONS MEDICATIONS ADMINISTERED No Known Medications MEDICAL (GENERAL) HISTORY Type Description Date Medical History Profound MR Medical History Esophagitis Medical History History of Anemia Medical History Severe scoliosis Medical History Stereotypical habit disorder Surgical History teeth extraction
--- OUTSIDE RECORDS SUMMARY | 2018-11-03 13:19 | XMS REPORT ---
Author Author STEVE QUIROS Organization [facility] [place] Address [address] [place] [address] Care Team Providers Care Entry Examiner Name Role Phone STEVE QUIROS Unavailable PROBLEMS Type Condition ICD9-CM Code ZZU81-FV Code Onset Dates Condition Status SNOMED Code Problem Raynaud disease I73.00 Active 362638731 Problem Mood swings F39 Active 21214465 Problem Mental retardation F79 Active 52325244 Problem Esophagitis K20.9 Active 43506786 Problem Scoliosis, unspecified scoliosis type, unspecified spinal region M41.9 Active 738913004 Problem Anemia D64.9 Active 204317926 ALLERGIES No Information ENCOUNTERS Encounter Location Date Diagnosis [place] [address] [address] Apr, [place] [address] [address] Feb, Dental examination Z01.20 [place] [address] [address]- [address] 27 Feb, 2018 Medicare annual wellness visit, initial Z00.00 ; Raynaud disease I73.00 ; Mental retardation F79 and Encounter for immunization Z23 [place] [address] [place] [id number] [place] [address]- 2422 Feb, Scoliosis, unspecified scoliosis type, unspecified spinal region M41.9 [place] [address] [address]- [address]46 Feb, [place] [address] [address]- 7787 January, [place] [address] [address]- 365[address] Sep, [facility] [place] [address] [address] Mar, Scoliosis, unspecified scoliosis type, unspecified spinal region M41.9 ; Mental retardation F79 and Breast cancer screening Z12.39 [facility] [id number] [id number] Feb, Dental examination Z01.20 [place] [address] [place] [id number] [place] [address] 28902- 7386 Feb, Encounter for immunization Z23 [place] [address] [place] [id number] [place] [address] 25613- 8186 January, Anemia D64.9 and Screening, lipid Z13.220 [place] [address] [place] [id number] [place] [address] 77652- 2028 January, Screening, lipid Z13.220 ; Anemia D64.9 and Encounter for immunization Z23 [place] [address] [place] [id number] [place] [address] 90709- 1900 Dec, [place] [address] [place] [id number] [place] [address] 12029- 2267 Dec, Encounter for Depo-Provera contraception Z30.42 [place] [address] [place] [id number] [place] [address] 25339- 8141 Sep, Encounter for Depo-Provera contraception Z30.42 [facility] [address] [place] [id number] [place] [address]42 -3252 Jul, Tinea pedis of right foot B35.3 [place] [address] [place] [id number] [place] [address] 54809- 7331 Jun, Encounter for Depo-Provera contraception Z30.42 [facility] [place] [address] [place] [id number] [place] [address] 79190- 1387 Apr, Encounter for Depo-Provera contraception Z30.42 [place] [address] [place] [address]- 6216 January, Encounter for Depo-Provera contraception Z30.42 [facility] [place] [id number] [place] [address] 50974- 6160 January, [facility] [address] [place] [id number] [address] Dec, Encounter for dental examination Z01.20 [facility] [place] [address] [place] [id number] [place] [address] 98709- 2301 Nov, Anemia D64.9 ; Mental retardation F79 ; Scoliosis, unspecified scoliosis type, unspecified spinal region M41.9 ; Raynaud disease I73.00 ; Mood swings F39 and Screening, lipid Z13.220 [facility] [place] [address] [place] [id number] [place] [address] 30933- 8571 Nov, Mental retardation F79 ; Scoliosis, unspecified scoliosis type, unspecified spinal region M41.9 ; Anemia D64.9 ; Raynaud disease I73.00 ; Mood swings F39 and Screening, lipid Z13.220 [facility] [place] [id number] [place] [address] 91620- 1366 Oct, Encounter for Depo-Provera contraception Z30.42 [facility] [place] [id number] [place] [address] 33696- 4517 Oct, [facility] [place] [id number] [place] [address] 73014- 2819 Sep, [facility] [place] [id number] [place] [address] 04043- 1266 Aug, Encounter for Depo-Provera contraception Z30.42 [facility] [place] [address] [place] [id number] [place] [address] 22451- 2553 May, [facility] [place] [address] [place] [address] 80640- 3054 May, Encounter for Depo-Provera contraception V25.49 [facility] [place] [address], [place] [address] 25 Feb, 2015 Encounter for contraceptive management V25.9 and Unspecified contraceptive management V25.9 [facility] [place] [address] [facility] [id number] [address] 14 Dec, 2014 [facility] [place] [address] [address] 04[address] Dec, [facility] [place] [address] [facility] [id number] [address]- 2017 Oct, [facility] [place] [address] [address]- 7238 Oct, [facility] [place] [address] [address]- 8577 Oct, [facility] [place] [address] [address]- 0647 Oct, [facility] [place] [address] [address]- 1589 Oct, [facility] [place] [address] [address]- 7117 Sep, [facility] [place] [address] [address]- 3891 Sep, [facility] [place] [address] [address]- 3724 Sep, [facility] [place] [address] [place] [id number] [address]- 0966 Sep, [facility] [place] [address], [place] [address]- 4867 Aug, [facility] [place] [address] [address] Aug, [facility] [place] [address] [place] [id number] [address] Aug, [facility] [place] [facility] [address] [id number] [place] [address]- 3337 Aug, [facility] [place] [facility] [address] [id number] [place] [address]- 6787 Jul, [facility] [place] [facility] [address] [id number] [place] [address]- 7315 Jul, [facility] [place] [facility] [address] [id number] [place] [address]- 5273 Jul, [facility] [place] [facility] [address] [id number] [place] [address]- 5831 Jul, [facility] [place] [facility] [address] [id number] [place] [address]- 7872 Jun, [facility] [place] [facility] [address] [id number] [place] [address] Jun, [facility] [place] [facility] [address] [id number] [place] [address]- 0387 Jun, [facility] [place] [facility] [address] [id number] [place] [address]- 7896 Jun, [facility] [place] [facility] [address] [id number] [place] [address]- 4696 Apr, [facility] [place] [facility] [address] [id number] [place] 2478 Apr, [facility] [place] [facility] [address] [id number] [place] [address]- 1816 Mar, [facility] [place] [facility] [address] [id number] [place] [address]- 2258 Mar, [facility] [place] [facility] [address] [id number] [place] [address]- 5922 Mar, [facility] [place] [facility] [address] [id number] [place] [address]- 5694 Mar, [facility] [place] [facility] [address] [id number] [place] [address]- 8938 Feb, [facility] [place] [facility] [address] [id number] [place] [address]- 6288 Feb, [facility] [place] [facility] [address] [id number] [place] [address]- 2376 Dec, [facility] [place] [facility] [address] [id number] [place] [address]- 4189 Dec, [facility] [place] [facility] [address] [id number] [place] [address]- 2379 Dec, [facility] [place] [facility] [address] [id number] [place] [address]- 7855 Dec, [facility] [place] [facility] [address] [id number] [place] [address]- 1467 Dec, [facility] [place] [facility] [address] [id number] [place] [address]- 3588 Dec, [facility] [place] [facility] [address] [id number] [place] [address]- 7615 Dec, [facility] [place] [facility] [address] [id number] [place] [address]- 4751 Nov, [facility] [place] [facility] [address] [id number] [place] [address]- 6099 Nov, [facility] [place] [facility] [address] [id number] [place] [address]- 7956 Oct, [facility] [place] [facility] [address] [id number] [place] [address]- 2992 Oct, [facility] [place] [facility] [address] [id number] [place] [address]- 1779 Sep, [facility] [place] [facility] [address] [id number] [place] [address]- 6724 Sep, [facility] [place] [facility] [address] [id number] [place] [address]- 6445 Aug, [facility] [place] [facility] [address] [id number] [place] [address]- 5791 Aug, [facility] [address] [id number] [place] [address]- 3379 Jul, [facility] [place] [facility] [address] [id number] [place] [address]- 3911 Jul, [facility] [address] [id number] [place] [address]- 1303 Jul, [facility] [place] [facility] [address] [id number] [place] [address]- 0496 Jul, [facility] [address] [id number] [place] [address]- 2429 Jun, [facility] [place] [facility] [address] [id number] [place] 7630 Jun, [facility] [address] [id number] [place] [address]- 5435 Jun, [facility] [address] [id number] [place] [address]- 3215 Jun, [facility] [place] [facility] [address] [id number] [place] [address]- 4266 Apr, [facility] [address] [id number] [place] [address]- 2510 Apr, [facility] [place] [facility] [address] [id number] [place] [address]- 0284 Mar, [facility] [place] [facility] [address] [id number] [place] [address]- 8766 Feb, [facility] [place] [facility] [address] [id number] [place] [address]- 2145 January, [facility] [place] [facility] [address] [id number] [place] [address]- 2546 January, [facility] [place] [facility] [address] [id number] [place] [address]- 9404 Nov, [facility] [place] [facility] [address] [id number] [place] [address]- 7822 Oct, [facility] [place] [facility] [address] [id number] [place] [address]- 2264 Oct, [facility] [place] [facility] [address] [id number] [place] [address]- 4229 Sep, [facility] [place] [facility] [address] [id number] [place] [address]- 4878 Aug, [facility] [place] [facility] [address] [id number] [place] [address]- 2963 Jul, [facility] [place] [facility] [address] [id number] [place] [address]- 8817 Jul, [facility] [place] [facility] [address] [id number] [place] [address]- 0888 Jul, [facility] [place] [facility] [address] [id number] [place] [address]- 8457 Jul, [facility] [place] [facility] [address] [id number] [place] [address]- 0680 Jul, [facility] [place] [facility] [address] [facility] [id number], [place] [address]- 4484 Jul, [facility] [place] [facility] [address] [id number], [place] [address]- 3509 Jun, [facility] [place] [facility] [address] [id number], [place] [address]- 4695 Jun, [facility] [place] [facility] [address] [id number] [place] [address]- 7983 May, [facility] [place] [facility] [address] [id number], [place] [address]- 8058 17 May, 2012 [facility] [place] [facility] [address] [facility] [id number][place]- 6821 11 May, 2012 [facility] [place] [facility] [address] [id number], [place] [address]- 7129 Apr, [facility] [address] [id number] [place] [address]- 9155 Apr, [facility] [place] [facility] [address] [id number] [place] [address]- 5818 Apr, [facility] [place] [facility] [address] [id number] [place] [address]- 3646 Apr, [facility] [place] [facility] [address] [id number] [place] [address]- 7533 Feb, [facility] [place] [facility] [address] [id number] [place] [address]- 7990 Feb, [facility] [place] [facility] [address] [id number] [place] [address]- 9011 January, [facility] [address] [id number] [place] [address]- 4790 January, [facility] [place] [facility] [address] [id number] [place] [address]- 4315 Dec, [facility] [place] [facility] [address] [id number] [place] [address]- 1692 Oct, [facility] [place] [facility] [address] [id number] [place] [address]- 0610 Oct, [facility] [place] [facility] [address] [id number] [place] [address]- 8578 Oct, [facility] [place] [facility] [address] [id number] [place] [address]- 7294 Sep, [facility] [place] [facility] [address] [id number] [place] [address]- 9508 Sep, [facility] [place] [facility] [address] [id number] [place] [address]- 3684 Sep, [facility] [place] [facility] [address] [id number] [place] [address]- 8390 Sep, [facility] [place] [facility] [address] [id number] [place] [address]- 5074 Sep, [facility] [place] [facility] [address] [id number] [place] [address]- 5052 Sep, [facility] [place] [facility] [address] [id number] [place] [address]- 7507 Jul, [facility] [place] [facility] [id number] [place] [address], [place] [address]- 7433 Jul, [facility] [place] [facility] [address] [id number] [place] [address]- 1048 Jul, [facility] [place] [facility] [address] [id number] [place] [address]- 4226 Jul, [facility] [place] [facility] [address] [id number] [place] [address]- 2441 Jul, [facility] [place] [facility] [address] [id number] [place] [address]- 9503 Jun, [facility] [place] [facility] [address] [id number] [place] [address]- 9763 Mar, [facility] [place] [facility] [address] [id number] [place] [address]- 0883 Jul, [facility] [place] [facility] [address] [id number] [place] [address]- 1656 17 Jul, 2010 [facility] [place] [facility] [address] [id number] [place] [address]- 5985 Jul, [facility] [place] [facility] [address] [id number] [place] [address]- 7604 27 Jun, 2010 [facility] [place] [facility] [address] [id number] [place] [address]- 0870 Jun, [facility] [place] [facility] [address] [id number] [place] [address]- 8233 18 Jun, 2010 [facility] [place] [facility] [address] [id number], [place] [address]- 8326 Nov, [facility] [place] [address] [facility] [id number], [place] [address]- 2546 Oct, [facility] [place] [address] [facility] [id number], [place] [address]- 2546 Aug, [facility] [place] [address] [facility] [id number], [place] [address] 2546 Jun, [facility] [place] [address] [facility] [id number], [place] [address]- 3806 Jun, IMMUNIZATIONS No Known Immunizations SOCIAL HISTORY Never Assessed REASON FOR VISIT Xray Needed PLAN OF CARE VITAL SIGNS MEDICATIONS Unknown Medications RESULTS Name Result Date Reference Range Xray : Scoliosis Survey 2018-03-28 PROCEDURES No Known procedures INSTRUCTIONS MEDICATIONS ADMINISTERED No Known Medications MEDICAL (GENERAL) HISTORY Type Description Date Medical History Profound MR Medical History Esophagitis Medical History History of Anemia Medical History Severe scoliosis Medical History Stereotypical habit disorder Surgical History teeth extraction
--- OUTSIDE RECORDS SUMMARY | 2018-11-03 13:19 | XMS REPORT ---
Author Author STEVE QUIROS Organization [facility] Address [address] [place] [address] Care Team Providers Care Signaling Design Engineer Name Role Phone STEVE QUIROS Unavailable PROBLEMS Type Condition ICD9-CM Code XBJ50-MM Code Onset Dates Condition Status SNOMED Code Problem Raynaud disease I73.00 Active 844149822 Problem Mood swings F39 Active 28420917 Problem Mental retardation F79 Active 00492720 Problem Esophagitis K20.9 Active 12872665 Problem Scoliosis, unspecified scoliosis type, unspecified spinal region M41.9 Active 405349144 Problem Anemia D64.9 Active 609468655 ALLERGIES Substance Reaction Event Type Date Status Tuberculin PPD Unknown Drug Allergy Feb, Active avoid citrus/pineapple Unknown Non Drug Allergy Feb, Active ENCOUNTERS Encounter Location Date Diagnosis [place] [address] [address] Apr, [place] [address] 25133- 7807 Feb, Dental examination Z01.20 [place] [address] [place] [id number] [place] [address] 23714- 7461 Feb, Medicare annual wellness visit, initial Z00.00 ; Raynaud disease I73.00 ; Mental retardation F79 and Encounter for immunization Z23 [place] [address] [place] [id number] [place] [address] 70703- 7668 Feb, Scoliosis, unspecified scoliosis type, unspecified spinal region M41.9 [place] [address] [address]183- 3088 Feb, [place] [address] 03772- 6661 January, [place] [id number] [place] [address] 04479- 1366 Sep, [facility] [address] [place] [id number] [place] [address] 92275- 9563 Mar, Scoliosis, unspecified scoliosis type, unspecified spinal region M41.9 ; Mental retardation F79 and Breast cancer screening Z12.[address] [id number] [id number] Feb, Dental examination Z01.20 [id number] [place] [address] 23033- 1977 Feb, Encounter for immunization Z23 [place] [id number] [place] [address] 16366- 9039 January, Anemia D64.9 and Screening, lipid Z13.220 [place] [id number] [place] [address] 29212- 3623 January, Screening, lipid Z13.220 ; Anemia D64.9 and Encounter for immunization Z23 [place] [address] [place] [id number] [place] [address] 62338- 8395 Dec, [place] [address] [place] [id number] [place] [address] 66226- 9865 Dec, Encounter for Depo-Provera contraception Z30.42 [place] [id number] [place] [address] 54418- 0588 Sep, Encounter for Depo-Provera contraception Z30.42 [facility] [id number] [place] [address] 50073 -3417 Jul, Tinea pedis of right foot B35.3 [place] [address] [place] [id number] [place] [address] 74100- 6413 Jun, Encounter for Depo-Provera contraception Z30.42 [place] [address] [place] [id number] [place] [address] 96862- 6810 Apr, Encounter for Depo-Provera contraception Z30.42 [facility] [id number] [place] [address] 90109- 8386 January, Encounter for Depo-Provera contraception Z30.42 [facility] [address] [place] [id number] [place] [address] 84909- 1815 January, [facility] [address] [id number] Dec, Encounter for dental examination Z01.20 [facility] [address] [place] [id number] [place] [address] 91124- 6215 Nov, Anemia D64.9 ; Mental retardation F79 ; Scoliosis, unspecified scoliosis type, unspecified spinal region M41.9 ; Raynaud disease I73.00 ; Mood swings F39 and Screening, lipid Z13.220 [facility] [address] 06099- 9854 Nov, Mental retardation F79 ; Scoliosis, unspecified scoliosis type, unspecified spinal region M41.9 ; Anemia D64.9 ; Raynaud disease I73.00 ; Mood swings F39 and Screening, lipid Z13.220 [facility] [address] [place] [id number] [place] [address] 15407- 0359 Oct, Encounter for Depo-Provera contraception Z30.42 [facility] [address] [place] [id number] [place] [address] 33473- 3909 Oct, [facility] [address] [place] [id number] [place] [address] 28720- 6155 Sep, [facility] [address] [place] [id number] [place] [address] 41794- 0689 Aug, Encounter for Depo-Provera contraception Z30.42 [facility] [address] [place] [id number] [place] [address] 30433- 1996 May, [facility] [address] 17262- 7757 May, Encounter for Depo-Provera contraception V25.49 [facility] [address] [id number] [address] 8652 Feb, Encounter for contraceptive management V25.9 and Unspecified contraceptive management V25.9 [facility] [address] 4009 Dec, [facility] [address] [place] [id number] [place] [address] 73007- 3163 Dec, [facility] [address] [address]- 5823 Oct, [facility] [address] [place] [id number] [place] [address] 72155- 6873 Oct, [facility] [address] [place] [address] 94198- 4417 Oct, [facility] [address] [place] [address] 29215- 4347 Oct, [facility] [address] [place] [address] 02444- 0638 Oct, [facility] [address] [address]- 2681 Sep, [facility] [address] [address]- 6950 Sep, [facility] [address] [address]- 3554 Sep, [facility] [address] 4577 Sep, [facility] [address] 2476 Aug, [facility] [address] [address]- 5134 Aug, [facility] [place] [facility] [address] [facility] [id number] [place] [address]- 2546 Aug, [facility] [place] [facility] [address] [id number] [place] [address]- 6010 Aug, [facility] [place] [facility] [address] [id number] [place] [address]- 1941 Jul, [facility] [place] [facility] [address] [id number] [place] [address]- 5585 Jul, [facility] [place] [facility] [address] [id number] [place] [address]- 9688 Jul, [facility] [place] [facility] [address] [id number] [place] [address]- 9385 Jul, [facility] [place] [facility] [address] [id number] [place] [address]- 0587 Jun, [facility] [place] [facility] [address] [id number] [place] [address]- 5376 Jun, [facility] [place] [facility] [address] [id number] [place] [address]- 1087 Jun, [facility] [place] [facility] [address] [id number] [place] [address]- 7850 Jun, [facility] [place] [facility] [address] [id number] [place] [address]- 4059 Apr, [facility] [place] [facility] [address] [id number] [place] [address]- 3654 Apr, [facility] [place] [facility] [address] [id number] [place] [address]- 8955 Mar, [facility] [place] [facility] [address] [id number] [place] [address]- 2568 Mar, [facility] [place] [facility] [address] [id number] [place] [address]- 6866 Mar, [facility] [place] [facility] [address] [id number] [place] [address]- 2341 Mar, [facility] [place] [facility] [address] [id number] [place] [address]- 4543 Feb, [facility] [place] [facility] [address] [id number] [place] [address]- 2982 Feb, [facility] [place] [facility] [address] [id number] [place] [address]- 6899 Dec, [facility] [place] [facility] [address] [id number] [place] [address]- 4771 Dec, [facility] [place] [facility] [address] [id number] [place] [address]- 6710 Dec, [facility] [place] [facility] [address] [id number] [place] [address]- 4659 Dec, [facility] [place] [facility] [address] [id number] [place] [address]- 6141 Dec, [facility] [place] [facility] [address] [id number] [place] [address]- 8239 Dec, [facility] [place] [facility] [address] [id number] [place] [address]- 1864 Dec, [facility] [place] [facility] [address] [id number] [place] [address]- 2427 Nov, [facility] [place] [facility] [address] [id number] [place] [address]- 8990 Nov, [facility] [place] [facility] [address] [id number] [place] [address]- 1597 Oct, [facility] [place] [facility] [address] [id number] [place] [address]- 4559 Oct, [facility] [place] [facility] [address] [id number] [place] [address]- 6963 Sep, [facility] [place] [facility] [address] [id number] [place] [address]- 0057 Sep, [facility] [place] [facility] [address] [id number] [place] [address]- 3684 Aug, [facility] [place] [facility] [address] [id number] [place] [address]- 2369 Aug, [facility] [place] [facility] [address] [id number] [place] [address]- 5230 Jul, [facility] [place] [facility] [address] [id number] [place] [address]- 9444 Jul, [facility] [place] [facility] [address] [id number] [place] [address]- 7967 Jul, [facility] [place] [facility] [address] [id number] [place] [address]- 6556 Jul, [facility] [place] [facility] [address] [id number] [place] [address]- 8156 Jun, [facility] [place] [facility] [address] [id number] [place] [address]- 2466 Jun, [facility] [place] [facility] [address] [id number] [place] [address]- 5614 Jun, [facility] [place] [facility] [address] [id number] [place] 6148 Jun, [facility] [place] [facility] [address] [id number] [place] [address]- 0581 Apr, [facility] [place] [facility] [address] [id number] [place] [address]- 6253 Apr, [facility] [place] [facility] [address] [id number] [place] [address]- 2219 Mar, [facility] [place] [facility] [address] [id number] [place] [address]- 9407 Feb, [facility] [place] [facility] [address] [id number] [place] [address] 2546 January, [facility] [place] [facility] [address] [id number] [place] [address]- 5507 January, [facility] [place] [facility] [address] [id number] [place] [address]- 6067 Nov, [facility] [place] [facility] [address] [id number] [place] 2034 Oct, [facility] [place] [facility] [address] [id number] [place] [address]- 9272 Oct, [facility] [place] [facility] [address] [id number] [place] [address]- 0454 Sep, [facility] [place] [facility] [address] [id number] [place] 1756 Aug, [facility] [place] [facility] [address] [id number] [place] [address]- 4672 Jul, [facility] [place] [facility] [address] [id number] [place] [address]- 1906 Jul, [facility] [place] [facility] [address] [id number] [place] [address]- 5404 Jul, [facility] [place] [facility] [address] [id number] [place] [address]- 5200 Jul, [facility] [place] [facility] [address] [id number] [place] [address]- 8436 Jul, [facility] [place] [facility] [address] [id number] [place] [address]- 6757 Jul, [facility] [place] [facility] [address] [id number] [address]- 0044 Jun, [facility] [place] [facility] [address] [id number] [place] [address]- 3044 Jun, [facility] [place] [facility] [address] [id number] [place] [address]- 5769 May, [facility] [place] [facility] [address] [id number] [place] [address]- 6282 17 May, 2012 [facility] [place] [facility] [address] [id number] [address]- 0963 May, [facility] [address] [id number] [place] [address]- 1321 Apr, [facility] [place] [facility] [address] [id number] [place] [address]- 7437 Apr, [facility] [place] [facility] [address] [id number] [place] [address]- 3265 Apr, [facility] [place] [facility] [address] [id number] [place] [address]- 1229 Apr, [facility] [place] [facility] [address] [id number] [place] [address]- 3988 Feb, [facility] [place] [facility] [address] [id number] [place] [address]- 0194 Feb, [facility] [address] [place] [id number] [place] [address]- 9075 January, [facility] [place] [facility] [address] [id number] [place] [address]- 1122 January, [facility] [address] [id number] [place] [address]- 7120 Dec, [facility] [place] [facility] [address] [id number] [place] [address]- 3339 Oct, [facility] [place] [facility] [address] [id number] [place] [address]- 0925 Oct, [facility] [place] [facility] [address] [id number] [place] [address]- 1267 Oct, [facility] [place] [facility] [address] [id number] [place] [address]- 1907 Sep, [facility] [place] [facility] [address] [id number] [place] [address]- 4697 Sep, [facility] [place] [facility] [address] [id number] [place] [address]- 1282 Sep, [facility] [place] [facility] [address] [id number] [place] [address]- 3175 Sep, [facility] [place] [facility] [address] [id number] [place] [address]- 8907 Sep, [facility] [place] [facility] [address] [id number] [place] [address]- 1369 Sep, [facility] [place] [facility] [address] [id number] [place] [address]- 6618 Jul, [facility] [place] [facility] [address] [id number] [place] [address]- 9100 Jul, [facility] [place] [facility] [address] [id number] [place] [address]- 0880 Jul, [facility] [place] [facility] [address] [id number] [place] [address]- 2123 Jul, [facility] [place] [facility] [address] [id number] [place] [address]- 5550 Jul, [facility] [place] [facility] [address] [id number] [place] [address]- 1315 Jun, [facility] [place] [facility] [address] [id number] [place] [address]- 0398 Mar, [facility] [place] [facility] [address] [id number] [place] [address]- 9736 Jul, [facility] [place] [facility] [address] [id number] [place] [address]- 6107 17 Jul, 2010 [facility] [place] [facility] [address] [id number] [place] [address]- 5816 Jul, [facility] [place] [facility] [address] [id number] [place] [address]- 8180 27 Jun, 2010 [facility] [place] [facility] [address] [id number] [place] [address]- 3369 Jun, [facility] [place] [facility] [address] [id number] [place] [address]- 8305 Jun, [facility] [address] [facility] [id number] [place] [address]- 9984 10 Nov, 2009 [facility] [address] [facility] 2] [id number], [place] [address]- 1106 Oct, [facility] [address] [facility] 2] [id number], [place] [address]- 4864 Aug, [facility] [address] [facility] 2] [id number], [place] [address]- 8294 Jun, [facility] [address] [facility] 2] [id number]- 9029 Jun, IMMUNIZATIONS Vaccine Route Administration Date Status TDAP (BOOSTRIX) IM Intramuscular March 19, 2018 Administered SOCIAL HISTORY Never Assessed REASON FOR VISIT Medicare AWV - Initial Visit - MAMADOU Diallo PLAN OF CARE Activity Details Follow Up 1 Year Reason: VITAL SIGNS Height 60 in 2018-03-19 Weight 82.6 lbs 2018-03-19 Heart Rate 76 bpm 2018-03-19 Respiratory Rate 20 2018-03-19 BMI 16.13 kg/m2 2018-03-19 Blood pressure systolic 118 mmHg 2018-03-19 Blood pressure diastolic 82 mmHg 2018-03-19 MEDICATIONS Medication Instructions Dosage Frequency Start Date End Date Duration Status Acetaminophen 500 mg 2 Tablet 2 times per day Sep, Active Colace 100 MG 1 capsule by Oral route 1 time per day at bedtime 31 Active Naproxen Sodium 220 mg take 1 tablet (220 mg) by oral route every 8 hours as needed Sep, Active Amlodipine Besylate 2.5 MG TAKE 1 TABLET ORALLY DAILY 31 Active BusPIRone HCl 15 MG 1 tablet by Oral route 2 times per day for anxiety 31 Active Omeprazole 20 MG TAKE 1 CAPSULE BY MOUTH DAILY 31 Active RESULTS No Results PROCEDURES Procedure Date Ordered Result Body Site [facility] VISIT IPPE/AWV March 19, 2018 ANNUAL IVORY VST; INEZ PPS INIT March 19, 2018 PT TOBACCO SCREEN RCVD TLK March 19, 2018 FALL RISK ASSESSMENT DOCD March 19, 2018 SINGLE IMMUNIZATION ADMIN March 19, 2018 TDAP (BOOSTRIX) March 19, 2018 INSTRUCTIONS MEDICATIONS ADMINISTERED No Known Medications MEDICAL (GENERAL) HISTORY Type Description Date Medical History Profound MR Medical History Esophagitis Medical History History of Anemia Medical History Severe scoliosis Medical History Stereotypical habit disorder Surgical History teeth extraction
--- OUTSIDE RECORDS SUMMARY | 2018-11-03 13:19 | XMS REPORT ---
Author Author STEVE QUIROS Organization [facility] Address [address] [place] [address] Care Team Providers Care Outside Sales Account Representative Name Role Phone STEVE QUIROS Unavailable PROBLEMS Type Condition ICD9-CM Code XFC38-BW Code Onset Dates Condition Status SNOMED Code Problem Raynaud disease I73.00 Active 935763698 Problem Mood swings F39 Active 43162758 Problem Mental retardation F79 Active 88999446 Problem Esophagitis K20.9 Active 20105300 Problem Scoliosis, unspecified scoliosis type, unspecified spinal region M41.9 Active 060530091 Problem Anemia D64.9 Active [id number] ALLERGIES No Information ENCOUNTERS Encounter Location Date Diagnosis [place] [id number] [place] [address] 89488- 0780 Feb, Dental examination Z01.20 [place] [address] [address] 27 Feb, 2018 Medicare annual wellness visit, initial Z00.00 ; Raynaud disease I73.00 ; Mental retardation F79 and Encounter for immunization Z23 [place] [id number] [place] [address] 13171- 3383 Feb, Scoliosis, unspecified scoliosis type, unspecified spinal region M41.9 [place] [id number] [place] [address] 84838- 9188 Feb, [place] [id number] [place] [address] 80666- 8310 January, [place] [id number] [place] [address] 87107- 5261 Sep, [place] [id number] [place] [address] 90692- 6355 Mar, Scoliosis, unspecified scoliosis type, unspecified spinal region M41.9 ; Mental retardation F79 and Breast cancer screening Z12.39 [facility] [address] [id number] [id number] Feb, Dental examination Z01.20 [id number] [place] [address] 77764- 8752 Feb, Encounter for immunization Z23 [place] [id number] [place] [address] 43481- 1881 January, Anemia D64.9 and Screening, lipid Z13.[address] [address]- [address] January, Screening, lipid Z13.220 ; Anemia D64.9 and Encounter for immunization Z23 [place] [id number] [place] [address] 14177- 0820 Dec, [place] [id number] [place] [address] 24343- 8062 Dec, Encounter for Depo-Provera contraception Z30.42 [place] [id number] [place] [address] 69945- 2214 Sep, Encounter for Depo-Provera contraception Z30.42 [facility] [id number] [place] [address] 37314 -0615 Jul, Tinea pedis of right foot B35.3 [id number] [place] [address] 96868- 9252 Jun, Encounter for Depo-Provera contraception Z30.42 [place] [id number] [place] [address] 31362- 2293 Apr, Encounter for Depo-Provera contraception Z30.42 [place] [id number] [place] [address] 67797- 4792 January, Encounter for Depo-Provera contraception Z30.42 [facility] [address] [id number] [address] January, [facility] [address] [id number] Dec, Encounter for dental examination Z01.20 [facility] [address] [place] [address] 94902- 6451 Nov, Anemia D64.9 ; Mental retardation F79 ; Scoliosis, unspecified scoliosis type, unspecified spinal region M41.9 ; Raynaud disease I73.00 ; Mood swings F39 and Screening, lipid Z13.220 [place] [id number] [place] [address] 23702- 9090 Nov, Mental retardation F79 ; Scoliosis, unspecified scoliosis type, unspecified spinal region M41.9 ; Anemia D64.9 ; Raynaud disease I73.00 ; Mood swings F39 and Screening, lipid Z13.220 [facility] [id number] [place] [address] 49138- 2409 Oct, Encounter for Depo-Provera contraception Z30.42 [place] [id number] [place] [address] 95739- 7219 Oct, [facility] [id number] [place] [address] 52475- 7010 Sep, [facility] [id number] [place] [address] 63913- 0969 Aug, Encounter for Depo-Provera contraception Z30.42 [facility] [address] [address] 0435 May, [place] [id number] [place] [address] 57976- 9373 May, Encounter for Depo-Provera contraception V25.49 [facility] [id number] [place] [address] 27587- 6124 Feb, Encounter for contraceptive management V25.9 and Unspecified contraceptive management V25.9 [facility] [address] [facility] [id number] [place] [address]- 0576 14 Dec, 2014 [facility] [address] [facility] [id number] [address] 0576 Dec, [facility] [address] [facility] [id number] [address]- 4947 Oct, [facility] [address] [facility] [id number] [address] 1422 Oct, [facility] [address] [facility] [id number] [place] [address]- 7675 Oct, [facility] [address] [address]- 3847 Oct, [facility] [address] [address]- 0205 Oct, [facility] [address] [address]- 5259 Sep, [facility] [address], [place] [address]- 9114 Sep, [facility] [address] [address]- 2878 Sep, [facility] [address] [address]- 8161 Sep, [facility] [address] [facility] [id number] [address]- 6587 Aug, [facility] [address] [address]- 8936 Aug, [facility] [address] 3511 Aug, [facility] [address] [id number] [address] Aug, [facility] [place] [facility] [address] [id number] [place] [address]- 4966 Jul, [facility] [place] [facility] [address] [id number] [place] Jul, [facility] [place] [facility] [address] [id number] [place] [address]- 0696 Jul, [facility] [place] [facility] [address] [id number] [place] [address]- 4605 Jul, [facility] [place] [facility] [address] [id number] [place] [address]- 7672 Jun, [facility] [place] [facility] [address] [id number] [place] [address]- 9449 Jun, [facility] [place] [facility] [address] [id number] [place] [address]- 0902 Jun, [facility] [place] [facility] [address] [id number] [place] [address]- 7140 Jun, [facility] [place] [facility] [address] [id number] [place] [address]- 1538 Apr, [facility] [place] [facility] [address] [id number] [place] [address]- 8336 Apr, [facility] [place] [facility] [address] [id number] [place] [address]- 2170 Mar, [facility] [place] [facility] [address] [id number] [place] [address]- 5285 Mar, [facility] [place] [facility] [address] [id number] [place] [address]- 5123 Mar, [facility] [place] [facility] [address] [id number] [place] [address]- 9009 Mar, [facility] [place] [facility] [address] [id number] [place] [address]- 8277 Feb, [facility] [place] [facility] [address] [id number] [place] [address]- 7938 Feb, [facility] [place] [facility] [address] [id number] [place] [address]- 3864 Dec, [facility] [place] [facility] [address] [id number] [place] [address]- 3501 Dec, [facility] [place] [facility] [address] [id number] [place] [address]- 1087 Dec, [facility] [place] [facility] [address] [id number] [place] [address]- 0666 Dec, [facility] [place] [facility] [address] [id number] [place] [address]- 4772 Dec, [facility] [place] [facility] [address] [id number] [place] [address]- 0370 Dec, [facility] [place] [facility] [address] [id number] [place] [address]- 3292 Dec, [facility] [place] [facility] [address] [id number] [place] [address]- 8632 Nov, [facility] [place] [facility] [address] [id number] [place] [address]- 9153 Nov, [facility] [place] [facility] [address] [id number] [place] [address]- 3480 Oct, [facility] [place] [facility] [address] [id number] [place] [address]- 9020 Oct, [facility] [place] [facility] [address] [id number] [place] [address]- 3978 Sep, [facility] [place] [facility] [address] [id number] [place] [address]- 0777 Sep, [facility] [place] [facility] [address] [id number] [place] [address]- 2092 Aug, [facility] [place] [facility] [address] [id number] [place] [address]- 6343 Aug, [facility] [place] [facility] [address] [id number] [place] [address]- 0827 Jul, [facility] [address] [id number] [place] [address]- 6591 Jul, [facility] [place] [facility] [address] [id number] [place] [address]- 8334 Jul, [facility] [address] [id number] [place] [address]- 4326 Jul, [facility] [place] [facility] [address] [id number] [place] [address]- 3014 Jun, [facility] [address] [id number] [place] [address]- 3019 Jun, [facility] [place] [facility] [address] [id number] [place] 6022 Jun, [facility] [address] [id number] [place] [address]- 0244 Jun, [facility] [address] [id number] [place] [address]- 1066 Apr, [facility] [place] [facility] [address] [id number] [place] [address]- 3660 Apr, [facility] [address] [id number] [place] [address]- 0044 Mar, [facility] [place] [facility] [address] [id number] [place] [address]- 4353 Feb, [facility] [place] [facility] [address] [id number] [place] [address] 2545 January, [facility] [place] [facility] [address] [id number] [place] [address]- 1249 January, [facility] [place] [facility] [address] [id number] [place] [address]- 2546 Nov, [facility] [place] [facility] [address] [id number] [place] [address]- 2184 Oct, [facility] [place] [facility] [address] [id number] [place] [address]- 8658 Oct, [facility] [place] [facility] [address] [id number] [place] [address]- 7734 Sep, [facility] [place] [facility] [address] [id number] [place] [address]- 8380 Aug, [facility] [place] [facility] [address] [id number] [place] [address]- 8853 Jul, [facility] [place] [facility] [address] [id number] [place] [address]- 8783 Jul, [facility] [place] [facility] [address] [id number] [place] [address]- 2895 Jul, [facility] [place] [facility] [address] [id number] [place] [address]- 3971 Jul, [facility] [place] [facility] [address] [id number] [place] [address]- 0582 Jul, [facility] [place] [facility] [address] [id number] [place] [address]- 6415 Jul, [facility] [place] [facility] [address] [facility] [id number], [place] [address]- 1041 Jun, [facility] [place] [facility] [address] [id number], [place] [address]- 8743 Jun, [facility] [place] [facility] [address] [id number], [place] [address]- 1054 May, [facility] [place] [facility] [address] [id number] [place] [address]- 9077 17 May, 2012 [facility] [place] [facility] [address] [id number], [place] [address]- 0224 11 May, 2012 [facility] [place] [facility] [address] [facility] [id number] [address]18 31 Apr, 2012 [facility] [place] [facility] [address] [id number], [place] [address]- 4842 Apr, [facility] [address] [id number] [place] [address]- 2511 Apr, [facility] [place] [facility] [address] [id number] [place] [address]- 8356 Apr, [facility] [place] [facility] [address] [id number] [place] [address]- 7665 Feb, [facility] [place] [facility] [address] [id number] [place] [address]- 3999 Feb, [facility] [address] [id number] [place] [address]- 8935 January, [facility] [place] [facility] [address] [id number] [place] [address]- 1182 January, [facility] [address] [address]- 7718 Dec, [facility] [place] [facility] [address] [id number] [place] [address]- 5505 Oct, [facility] [id number] [address]- 3852 Oct, [facility] [id number] [address]- 1763 Oct, [facility] [address] [address]- 7157 Sep, [facility] [place] [facility] [address] [id number] [place] [address]- 2278 Sep, [facility] [place] [facility] [address] [id number] [place] [address]- 9414 Sep, [facility] [place] [facility] [address] [id number] [place] [address]- 6234 Sep, [facility] [place] [facility] [address] [facility] [id number] [place] [address]- 7599 Sep, [facility] [place] [facility] [address] [id number] [place] [address]- 5405 Sep, [facility] [place] [facility] [address] [id number] [place] [address]- 5891 Jul, [facility] [place] [facility] [address] [id number] [place] [address]- 1232 Jul, [facility] [place] [facility] [address] [id number] [place] [address]- 6517 Jul, [facility] [place] [facility] [address] [id number] [place] [address]- 7578 Jul, [facility] [place] [facility] [address] [id number] [place] [address]- 0576 Jul, [facility] [place] [facility] [address] [id number] [place] [address]- 3967 Jun, [facility] [place] [facility] [address] [id number] [place] [address]- 7142 Mar, [facility] [place] [facility] [address] [id number] [place] [address]- 8234 Jul, [facility] [place] [facility] [address] [id number] [place] [address]- 5263 Jul, [facility] [place] [facility] [address] [id number] [place] [address]- 0820 Jul, [facility] [place] [facility] [address] [id number] [place] [address]- 7433 Jun, [facility] [place] [facility] [address] [id number] [place] [address]- 0748 Jun, [facility] [place] [facility] [address] [id number] [place] [address]- 1674 18 Jun, 2010 [facility] [place] [facility] [address] [id number] [place] [address]- 2036 10 Nov, 2009 [facility] [place] [facility] [address] [id number] [address]- 3256 Oct, [facility] [address] [facility] [id number] [place] [address]- 0626 Aug, [facility] [address] [facility] [id number], [place] [address]- 3656 Jun, [facility] [address] [facility] [id number] [place] [address]- 4129 Jun, IMMUNIZATIONS No Known Immunizations SOCIAL HISTORY Never Assessed REASON FOR VISIT Order Request PLAN OF CARE VITAL SIGNS MEDICATIONS No Known Medications RESULTS No Results PROCEDURES No Known procedures INSTRUCTIONS MEDICATIONS ADMINISTERED No Known Medications MEDICAL (GENERAL) HISTORY Type Description Date Medical History Profound MR Medical History Esophagitis Medical History History of Anemia Medical History Severe scoliosis Medical History Stereotypical habit disorder Surgical History teeth extraction
--- OUTSIDE RECORDS SUMMARY | 2018-11-03 13:20 | XMS REPORT ---
Author Author STEVE QUIROS Organization [facility] Address [address] [place] [address] Care Team Providers Care Buyer Intern Name Role Phone STEVE QUIROS Unavailable PROBLEMS Type Condition ICD9-CM Code PEC27-ZK Code Onset Dates Condition Status SNOMED Code Problem Raynaud disease I73.00 Active 420194645 Problem Mood swings F39 Active 36736236 Problem Mental retardation F79 Active 36854213 Problem Esophagitis K20.9 Active 29242903 Problem Scoliosis, unspecified scoliosis type, unspecified spinal region M41.9 Active 010299187 Problem Anemia D64.9 Active 837554574 ALLERGIES Substance Reaction Event Type Date Status Tuberculin PPD Unknown Drug Allergy Mar, Active avoid citrus/pineapple Unknown Non Drug Allergy Mar, Active ENCOUNTERS Encounter Location Date Diagnosis [place] [id number] [place] [address]- [address]30 Sep, [place] [id number] [place] [address] 78627- 1625 Mar, Scoliosis, unspecified scoliosis type, unspecified spinal region M41.9 ; Mental retardation F79 and Breast cancer screening Z12.[address] [id number] [id number] Feb, Dental examination Z01.20 [place] [id number] [place] [address] 74469- 1161 Feb, Encounter for immunization Z23 [address] [address]- [address] January, Anemia D64.9 and Screening, lipid Z13.[address] [address]- [address]178 January, Screening, lipid Z13.220 ; Anemia D64.9 and Encounter for immunization Z23 [place] [address] [id number] [place] [address] 38355- 8984 Dec, [facility] [id number] [place] [address] 30309- 0511 Dec, Encounter for Depo-Provera contraception Z30.42 [place] [address] [address]- 8695 Sep, Encounter for Depo-Provera contraception Z30.[address] [facility] [address] [address] Jul, Tinea pedis of right foot B35.3 [place] [id number] [place] [address] 58464- 3239 Jun, Encounter for Depo-Provera contraception Z30.42 [place] [address] [id number] [place] [address] 73753- 2219 Apr, Encounter for Depo-Provera contraception Z30.42 [place] [address] [id number] [place] [address] 13404- 1073 January, Encounter for Depo-Provera contraception Z30.42 [place] [address] [id number] [place] [address] 63734- 8834 January, [facility] [id number] [place] [id number] Dec, Encounter for dental examination Z01.20 [place] [id number] [place] [address] 08185- 9065 Nov, Anemia D64.9 ; Mental retardation F79 ; Scoliosis, unspecified scoliosis type, unspecified spinal region M41.9 ; Raynaud disease I73.00 ; Mood swings F39 and Screening, lipid Z13.220 [place] [address] 74305- 9946 Nov, Mental retardation F79 ; Scoliosis, unspecified scoliosis type, unspecified spinal region M41.9 ; Anemia D64.9 ; Raynaud disease I73.00 ; Mood swings F39 and Screening, lipid Z13.220 [facility] [id number] [place] [address] 98995- 3869 Oct, Encounter for Depo-Provera contraception Z30.42 [facility] [address] 46043- 8198 Oct, [facility] [id number] [place] [address] 71018- 5203 Sep, [place] [address] 17880- 7997 Aug, Encounter for Depo-Provera contraception Z30.42 [place] [id number] [place] [address] 47938- 9659 May, [place] [address] 34991- 1007 May, Encounter for Depo-Provera contraception V25.49 [place] [address] [id number] [place] [address] 55987- 2765 Feb, Encounter for contraceptive management V25.9 and Unspecified contraceptive management V25.9 [place] [address] [id number] [place] [address] 77035- 5043 Dec, [place] [address] [id number] [place] [address] 74748- 0538 Dec, [place] [address] [address] [id number] [place] [address] 34470- 2177 Oct, [place] [address] [address] [id number] [place] [address] 35418- 1727 Oct, [place] [id number] [place] [address] 23903- 7613 Oct, [place] [address] [place] [id number] [place] [address]- 7660 Oct, [facility] [place] [facility] [address] [id number] [place] [address]- 8162 Oct, [facility] [place] [facility] [address] [id number] [place] [address]- 7659 Sep, [facility] [place] [facility] [address] [id number] [place] [address]- 1479 Sep, [facility] [place] [facility] [address] [id number] [place] [address]- 2344 Sep, [facility] [place] [facility] [address] [id number] [place] [address]- 8183 Sep, [facility] [place] [facility] [address] [id number] [place] [address]- 6207 Aug, [facility] [place] [facility] [address] [id number] [place] [address]- 8147 Aug, [facility] [place] [facility] [address] [id number] [place] [address]- 2638 Aug, [facility] [place] [facility] [address] [id number] [place] [address]- 3264 Aug, [facility] [place] [facility] [address] [facility] [id number] [place] [address]- 1314 Jul, [facility] [place] [facility] [address] [id number] [place] [address]- 5804 Jul, [facility] [place] [facility] [address] [id number] [place] [address]- 8048 Jul, [facility] [place] [facility] [address] [id number] [place] [address]- 2566 Jul, [facility] [place] [facility] [address] [id number] [place] [address]- 0380 Jun, [facility] [place] [facility] [address] [id number] [place] [address]- 8434 Jun, [facility] [place] [facility] [address] [id number] [place] [address]- 8756 Jun, [facility] [place] [facility] [address] [id number] [place] [address]- 6259 Jun, [facility] [place] [facility] [address] [id number] [place] [address]- 8580 Apr, [facility] [place] [facility] [address] [id number] [place] [address]- 9646 Apr, [facility] [place] [facility] [address] [id number] [place] [address]- 7380 Mar, [facility] [place] [facility] [address] [id number] [place] [address]- 8455 Mar, [facility] [place] [facility] [address] [id number] [place] [address]- 5839 Mar, [facility] [place] [facility] [address] [id number] [place] [address]- 5560 Mar, [facility] [place] [facility] [address] [id number] [place] [address]- 1261 Feb, [facility] [place] [facility] [address] [id number] [place] [address]- 3089 Feb, [facility] [place] [facility] [address] [id number] [place] [address]- 9602 Dec, [facility] [place] [facility] [address] [id number], [place] [address]- 0911 Dec, [facility] [place] [facility] [address] [id number] [place] [address]- 3342 Dec, [facility] [place] [facility] [address] [id number] [place] [address]- 0945 Dec, [facility] [place] [facility] [address] [id number] [place] [address]- 3740 Dec, [facility] [place] [facility] [address] [id number] [place] [address]- 3967 15 Dec, 2013 [facility] [place] [facility] [address] [id number] [place] [address]998 Dec, [facility] [place] [facility] [address] [id number] [place] [address]- 5525 Nov, [facility] [place] [facility] [address] [id number] [place] [address]- 2638 Nov, [facility] [place] [facility] [address] [id number] [place] [address]- 0444 Oct, [facility] [place] [facility] [address] [id number] [place] [address]- 4364 Oct, [facility] [place] [facility] [address] [id number] [place] [address]- 1338 Sep, [facility] [place] [facility] [address] [id number] [place] [address]- 4615 Sep, [facility] [place] [facility] [address] [id number] [place] [address]- 1980 Aug, [facility] [place] [facility] [address] [id number] [place] [address]- 5185 Aug, [facility] [place] [facility] [address] [id number] [place] [address]- 2007 Jul, [facility] [place] [facility] [address] [id number] [place] [address]- 5226 Jul, [facility] [place] [facility] [address] [id number] [place] [address]- 7168 Jul, [facility] [place] [facility] [address] [id number] [place] 2805 Jul, [facility] [place] [facility] [address] [id number] [place] [address]- 8406 Jun, [facility] [place] [facility] [address] [id number] [place] [address]- 8983 Jun, [facility] [place] [facility] [address] [id number] [place] [address]- 9842 Jun, [facility] [address] [id number] [place] [address]- 4877 Jun, [facility] [address] [id number] [place] [address]- 3820 Apr, [facility] [place] [facility] [address] [id number] [place] [address]- 5918 Apr, [facility] [address] [id number] [place] [address]- 1169 Mar, [facility] [place] [facility] [address] [id number] [place] [address]- 0086 Feb, [facility] [address] [id number] [place] [address]- 3104 January, [facility] [address] [id number] [place] [address]- 3640 January, [facility] [address] [id number] [place] [address]- 6431 Nov, [facility] [address] [id number] [place] [address]- 4371 Oct, [facility] [place] [facility] [address] [id number] [place] [address]- 2546 Oct, [facility] [place] [facility] [address] [id number] [place] [address]- 4781 Sep, [facility] [place] [facility] [address] [id number] [place] [address]- 5948 Aug, [facility] [place] [facility] [address] [id number] [place] [address]- 8656 Jul, [facility] [place] [facility] [address] [id number] [place] [address]- 8858 Jul, [facility] [place] [facility] [address] [id number] [place] [address]- 4730 Jul, [facility] [place] [facility] [address] [id number] [place] [address]- 9382 Jul, [facility] [place] [facility] [address] [id number] [place] [address]- 4839 Jul, [facility] [place] [facility] [address] [facility] [id number] [place] [address]- 9580 Jul, [facility] [place] [facility] [address] [id number] [place] [address]- 7276 Jun, [facility] [place] [facility] [address] [id number] [place] [address]- 5194 Jun, [facility] [place] [facility] [address] [id number] [place] [address]- 5114 May, [facility] [place] [facility] [address] [place] [address]- 5579 17 May, 2012 [facility] [place] [facility] [address] [facility] [id number] [place] [address]- 5744 May, [facility] [place] [facility] [address] [id number] [place] [address]- 0169 Apr, [facility] [place] [facility] [address] [facility] [id number] [place] [address]- 5817 Apr, [facility] [place] [facility] [address] [facility] [id number] [place] [address]- 1027 Apr, [facility] [place] [facility] [address] [id number] [place] [address]- 4280 Apr, [facility] [place] [facility] [address] [id number] [place] [address]- 0926 Feb, [facility] [place] [facility] [address] [facility] [id number] [place] [address]- 4832 Feb, [facility] [place] [facility] [address] [facility] [id number] [place] [address]- 2178 January, [facility] [place] [facility] [address] [id number] [place] [address]- 0054 January, [facility] [place] [facility] [address] [id number] [place] [address]- 1246 Dec, [facility] [place] [facility] [address] [id number] [place] [address]- 9116 29 Oct, 2011 [facility] [place] [facility] [address] [id number] [place] [address]- 0286 16 Oct, 2011 [facility] [place] [facility] [address] [id number] [place] [address]- 5345 Oct, [facility] [place] [facility] [address] [id number] [place] [address]- 9729 Sep, [facility] [place] [facility] [address] [id number] [place] [address]- 3836 Sep, [facility] [place] [facility] [address] [id number] [place] [address]- 9052 Sep, [facility] [place] [facility] [address] [id number] [place] [address]- 3528 Sep, [facility] [place] [facility] [address] [id number] [place] [address]- 2104 Sep, [facility] [place] [facility] [address] [id number] [place] [address]- 9103 Sep, [facility] [place] [facility] [address] [id number] [place] [address]- 6182 Jul, [facility] [place] [facility] [address] [id number] [place] [address]- 2814 Jul, [facility] [place] [facility] [address] [id number] [place] [address]- 0111 Jul, [facility] [place] [facility] [address] [id number] [place] [address]- 3645 Jul, [facility] [place] [facility] [address] [id number] [place] [address]- 4970 Jul, [facility] [address] [id number] [address]- 0453 Jun, [facility] [address] [address]- 2956 Mar, [facility] [id number] [address]- 0373 Jul, [facility] [address] [facility] [id number], [place] [address]- 5712 Jul, [facility] [id number] [address]- 1256 Jul, [facility] [id number] [address]- 1956 Jun, [facility] [address] [place] [address]- 7776 Jun, [facility] [address] [address]- 9255 Jun, [facility] [address] 0935 Nov, [facility] [address] [address]- 9337 Oct, [facility] [address] [id number] [address]- 4266 Aug, [facility] [id number] [address]- 6344 Jun, [facility] [address] [id number] [address]- 6712 Jun, IMMUNIZATIONS No Known Immunizations SOCIAL HISTORY Never Assessed REASON FOR VISIT Breast exam- Luciana Holguin RN PLAN OF CARE Activity Details Follow Up prn Reason: VITAL SIGNS Height 60 in 2017-03-27 Temperature 97.6 degrees Fahrenheit 2017-03-27 Heart Rate 76 bpm 2017-03-27 Respiratory Rate 18 2017-03-27 Blood pressure systolic 112 mmHg 2017-03-27 Blood pressure diastolic 78 mmHg 2017-03-27 MEDICATIONS Medication Instructions Dosage Frequency Start Date End Date Duration Status Naproxen Sodium 220 mg take 1 tablet (220 mg) by oral route every 8 hours as needed Sep, Active Colace 100 MG 1 capsule by Oral route 1 time per day at bedtime 31 Active Prilosec 20 MG TAKE 1 CAPSULE ORALLY DAILY 31 Active Acetaminophen 500 mg 2 Tablet 2 times per day Sep, Active Amlodipine Besylate 2.5 MG TAKE 1 TABLET ORALLY DAILY 31 Active BusPIRone HCl 15 MG 1 tablet by Oral route 2 times per day for anxiety 31 Active RESULTS No Results PROCEDURES Procedure Date Ordered Result Body Site [facility] VISIT ESTABLISHED PATIENT March 27, 2017 INSTRUCTIONS MEDICATIONS ADMINISTERED No Known Medications MEDICAL (GENERAL) HISTORY Type Description Date Medical History Profound MR Medical History Esophagitis Medical History History of Anemia Medical History Severe scoliosis Medical History Stereotypical habit disorder Surgical History teeth extraction
--- OUTSIDE RECORDS SUMMARY | 2018-11-03 13:20 | XMS REPORT ---
Author Author STEVE QUIROS Organization [employer] Address Unknown Phone Unavailable Care Team Providers Care Tack Picker Name Role Phone STEVE QUIROS CP Unavailable Allergies No Known Allergies Problems Problem Type Condition Code Onset Dates Condition Status Problem Mood swings F39 Active Problem Esophagitis K20.9 Active Problem Raynaud disease I73.00 Active Problem Mental retardation F79 Active Problem Anemia D64.9 Active Problem Scoliosis, unspecified scoliosis type, unspecified spinal region M41.9 Active Medications Medication Code System Code Instructions Start Date End Date Status Dosage Depo-Provera [facility] [address]-01 150 MG/ML Intramuscular once every 3 months January 22, 2021 Inject 1mL Results No Known Results Summary Purpose [employer] Submission
--- OUTSIDE RECORDS SUMMARY | 2018-11-03 13:20 | XMS REPORT ---
Author Author STEVE QUIROS [facility] Address [address] [place] [address] Care Team Providers Care Innovation Analyst Name Role Phone STEVE QUIROS Unavailable PROBLEMS Type Condition ICD9-CM Code DNS60-ET Code Onset Dates Condition Status SNOMED Code Problem Raynaud disease I73.00 Active 405043423 Problem Mood swings F39 Active 63110494 Problem Mental retardation F79 Active 87638085 Problem Esophagitis K20.9 Active 04632203 Problem Scoliosis, unspecified scoliosis type, unspecified spinal region M41.9 Active 277648817 Problem Anemia D64.9 Active 598145310 ALLERGIES No Information SOCIAL HISTORY Never Assessed PLAN OF CARE VITAL SIGNS MEDICATIONS No Known Medications RESULTS No Results PROCEDURES Procedure Date Ordered Result Body Site ZOSTER (ZOSTAVAX) February 25, 2017 SINGLE IMMUNIZATION ADMIN February 25, 2017 IMMUNIZATIONS Vaccine Route Administration Date Status ZOSTER (ZOSTAVAX) SC Subcutaneous February 25, 2017 Administered MEDICAL (GENERAL) HISTORY Type Description Date Medical History Profound MR Medical History Esophagitis Medical History History of Anemia Medical History Severe scoliosis Medical History Stereotypical habit disorder Surgical History teeth extraction
--- OUTSIDE RECORDS SUMMARY | 2018-11-03 13:20 | XMS REPORT ---
Author Author STEVE QUIROS Organization [facility] Address [address] [place] [address] Care Team Providers Care Complaint Clerk Name Role Phone STEVE QUIROS Unavailable PROBLEMS Type Condition ICD9-CM Code YHO80-PG Code Onset Dates Condition Status SNOMED Code Problem Raynaud disease I73.00 Active 543010658 Problem Mood swings F39 Active 46218044 Problem Mental retardation F79 Active 92578433 Problem Esophagitis K20.9 Active 56667790 Problem Scoliosis, unspecified scoliosis type, unspecified spinal region M41.9 Active 367013272 Problem Anemia D64.9 Active 141323241 ALLERGIES Substance Reaction Event Type Date Status Tuberculin PPD Unknown Drug Allergy January, Active avoid citrus/pineapple Unknown Non Drug Allergy January, Active ENCOUNTERS Encounter Location Date Diagnosis [place] [id number] [place] [address]143- 4303 Sep, [place] [id number] [place] [address] 14680- 7801 Mar, Scoliosis, unspecified scoliosis type, unspecified spinal region M41.9 ; Mental retardation F79 and Breast cancer screening Z12.[address] [id number] [id number] Feb, Dental examination Z01.20 [place] [id number] [place] [address] 08071- 9699 Feb, Encounter for immunization Z23 [address] [address]- [address] January, Anemia D64.9 and Screening, lipid Z13.[address] [address]62- 7243 January, Screening, lipid Z13.220 ; Anemia D64.9 and Encounter for immunization Z23 [place] [id number] [place] [address] 42770- 3356 Dec, [facility] [id number] [place] [address] 08659- 8089 Dec, Encounter for Depo-Provera contraception Z30.42 [place] [address] [address]- 3142 Sep, Encounter for Depo-Provera contraception Z30.42 [facility] [address] [address] Jul, Tinea pedis of right foot B35.3 [place] [address] [place] [id number] [place] [address] 48309- 8837 Jun, Encounter for Depo-Provera contraception Z30.42 [place] [id number] [place] [address] 09864- 7876 Apr, Encounter for Depo-Provera contraception Z30.42 [place] [address] [place] [id number] [place] [address] 76442- 2853 January, Encounter for Depo-Provera contraception Z30.42 [place] [id number] [place] [address] 20468- 4262 January, [facility] [id number] [place] [address] [id number] Dec, Encounter for dental examination Z01.20 [place] [id number] [place] [address] 78253- 0154 Nov, Anemia D64.9 ; Mental retardation F79 ; Scoliosis, unspecified scoliosis type, unspecified spinal region M41.9 ; Raynaud disease I73.00 ; Mood swings F39 and Screening, lipid Z13.220 [place] [address] 27266- 4242 Nov, Mental retardation F79 ; Scoliosis, unspecified scoliosis type, unspecified spinal region M41.9 ; Anemia D64.9 ; Raynaud disease I73.00 ; Mood swings F39 and Screening, lipid Z13.220 [facility] [id number] [place] [address] 78431- 1097 Oct, Encounter for Depo-Provera contraception Z30.42 [facility] [address] 46810- 7304 Oct, [facility] [id number] [place] [address] 65885- 8899 Sep, [place] [address] 86888- 1809 Aug, Encounter for Depo-Provera contraception Z30.42 [place] [address] [id number] [place] [address] 37218- 6581 May, [place] [address] 57984- 6896 May, Encounter for Depo-Provera contraception V25.49 [place] [id number] [place] [address] 62598- 0796 Feb, Encounter for contraceptive management V25.9 and Unspecified contraceptive management V25.9 [place] [address] [place] [id number] [place] [address] 19203- 3211 Dec, [place] [address] [place] [address] [id number] [place] [address] 65033- 1049 Dec, [place] [address] [address] [id number] [place] [address] 69999- 3372 Oct, [place] [address] [address] [id number] [place] [address] 92808- 5853 Oct, [place] [address] [address] [id number] [place] [address] 52030- 5885 Oct, [place] [address] [place] [id number] [place] [address]- 2107 Oct, [facility] [place] [facility] [address] [id number] [place] [address]- 3711 Oct, [facility] [place] [facility] [address] [id number] [place] [address]- 1820 Sep, [facility] [place] [facility] [address] [id number] [place] [address]- 4804 Sep, [facility] [place] [facility] [address] [id number] [place] [address]- 5155 Sep, [facility] [place] [facility] [address] [id number] [place] [address]- 2990 Sep, [facility] [place] [facility] [address] [id number] [place] [address]- 8614 Aug, [facility] [place] [facility] [address] [id number] [place] [address]- 2551 Aug, [facility] [place] [facility] [address] [id number] [place] [address]- 0608 Aug, [facility] [place] [facility] [address] [id number] [place] [address]- 8518 Aug, [facility] [place] [facility] [address] [facility] [id number] [place] [address]- 1921 Jul, [facility] [place] [facility] [address] [id number] [place] [address]- 9497 Jul, [facility] [place] [facility] [address] [id number] [place] [address]- 9223 Jul, [facility] [place] [facility] [address] [id number] [place] [address]- 2290 Jul, [facility] [place] [facility] [address] [id number] [place] [address]- 2058 Jun, [facility] [place] [facility] [address] [id number] [place] [address]- 0633 Jun, [facility] [place] [facility] [address] [id number] [place] [address]- 3613 Jun, [facility] [place] [facility] [address] [id number] [place] [address]- 7639 Jun, [facility] [place] [facility] [address] [id number] [place] [address]- 5246 Apr, [facility] [place] [facility] [address] [id number] [place] [address]- 5296 Apr, [facility] [place] [facility] [address] [id number] [place] [address]- 8089 Mar, [facility] [place] [facility] [address] [id number] [place] [address]- 7783 Mar, [facility] [place] [facility] [address] [id number] [place] [address]- 3621 Mar, [facility] [place] [facility] [address] [id number] [place] [address]- 2943 Mar, [facility] [place] [facility] [address] [id number] [place] [address]- 4803 Feb, [facility] [place] [facility] [address] [id number] [place] [address]- 0393 Feb, [facility] [place] [facility] [address] [id number] [place] [address]- 8667 Dec, [facility] [place] [facility] [address] [id number], [place] [address]- 7952 Dec, [facility] [place] [facility] [address] [id number] [place] [address]- 3348 Dec, [facility] [place] [facility] [address] [id number] [place] [address]- 1565 Dec, [facility] [place] [facility] [address] [id number] [place] [address]- 2025 Dec, [facility] [place] [facility] [address] [id number] [place] [address]- 3429 15 Dec, 2013 [facility] [place] [facility] [address] [id number] [place] 6175 Dec, [facility] [place] [facility] [address] [id number] [place] [address]- 4046 Nov, [facility] [place] [facility] [address] [id number] [place] [address]- 3911 Nov, [facility] [place] [facility] [address] [id number] [place] [address]- 9295 Oct, [facility] [place] [facility] [address] [id number] [place] [address]- 5295 Oct, [facility] [place] [facility] [address] [id number] [place] [address]- 3436 Sep, [facility] [place] [facility] [address] [id number] [place] [address]- 4786 Sep, [facility] [place] [facility] [address] [id number] [place] [address]- 8528 Aug, [facility] [place] [facility] [address] [id number] [place] [address]- 3666 Aug, [facility] [place] [facility] [address] [id number] [place] [address]- 5605 Jul, [facility] [place] [facility] [address] [id number] [place] [address]- 4190 Jul, [facility] [place] [facility] [address] [id number] [place] [address]- 0202 Jul, [facility] [place] [facility] [address] [id number] [place] 6733 Jul, [facility] [place] [facility] [address] [id number] [place] [address]- 1298 Jun, [facility] [place] [facility] [address] [id number] [place] [address]- 4871 Jun, [facility] [place] [facility] [address] [id number] [place] [address]- 0804 Jun, [facility] [address] [id number] [place] [address]- 2027 Jun, [facility] [address] [id number] [place] [address]- 1200 Apr, [facility] [place] [facility] [address] [id number] [place] [address]- 8197 Apr, [facility] [address] [id number] [place] [address]- 8783 Mar, [facility] [place] [facility] [address] [id number] [place] [address]- 7842 Feb, [facility] [address] [id number] [place] [address]- 6603 January, [facility] [address] [id number] [place] [address]- 7745 January, [facility] [address] [id number] [place] [address]- 4412 Nov, [facility] [address] [id number] [place] [address]- 6903 Oct, [facility] [place] [facility] [address] [id number] [place] [address]- 2546 Oct, [facility] [place] [facility] [address] [id number] [place] [address]- 4633 Sep, [facility] [place] [facility] [address] [id number] [place] [address]- 2442 Aug, [facility] [place] [facility] [address] [id number] [place] [address]- 1406 Jul, [facility] [place] [facility] [address] [id number] [place] [address]- 1000 Jul, [facility] [place] [facility] [address] [id number] [place] [address]- 9129 Jul, [facility] [place] [facility] [address] [id number] [place] [address]- 5607 Jul, [facility] [place] [facility] [address] [id number] [place] [address]- 3154 Jul, [facility] [place] [facility] [address] [facility] [id number] [place] [address]- 3284 Jul, [facility] [place] [facility] [address] [id number] [place] [address]- 1296 Jun, [facility] [place] [facility] [address] [id number] [place] [address]- 0772 Jun, [facility] [place] [facility] [address] [id number] [place] [address]- 8640 May, [facility] [place] [facility] [address] [place] [address]- 4234 17 May, 2012 [facility] [place] [facility] [address] [facility] [id number] [place] [address]- 5988 May, [facility] [place] [facility] [address] [id number] [place] [address]- 2184 Apr, [facility] [place] [facility] [address] [facility] [id number] [place] [address]- 6623 Apr, [facility] [place] [facility] [address] [facility] [id number] [place] [address]- 2947 Apr, [facility] [place] [facility] [address] [id number] [place] [address]- 4825 Apr, [facility] [place] [facility] [address] [id number] [place] [address]- 5554 Feb, [facility] [place] [facility] [address] [facility] [id number] [place] [address]- 6632 Feb, [facility] [place] [facility] [address] [facility] [id number] [place] [address]- 9812 January, [facility] [place] [facility] [address] [id number] [place] [address]- 5570 January, [facility] [place] [facility] [address] [id number] [place] [address]- 6749 Dec, [facility] [place] [facility] [address] [id number] [place] [address]- 2156 29 Oct, 2011 [facility] [place] [facility] [address] [id number] [place] [address]- 0136 16 Oct, 2011 [facility] [place] [facility] [address] [id number] [place] [address]- 6632 Oct, [facility] [place] [facility] [address] [id number] [place] [address]- 9782 Sep, [facility] [place] [facility] [address] [id number] [place] [address]- 0326 Sep, [facility] [place] [facility] [address] [id number] [place] [address]- 5454 Sep, [facility] [place] [facility] [address] [id number] [place] [address]- 0600 Sep, [facility] [place] [facility] [address] [id number] [place] [address]- 6322 Sep, [facility] [place] [facility] [address] [id number] [place] [address]- 8950 Sep, [facility] [place] [facility] [address] [id number] [place] [address]- 8605 Jul, [facility] [place] [facility] [address] [id number] [place] [address]- 6163 Jul, [facility] [place] [facility] [address] [id number] [place] [address]- 9384 Jul, [facility] [place] [facility] [address] [id number] [place] [address]- 9544 Jul, [facility] [place] [facility] [address] [id number] [place] [address]- 2609 Jul, [facility] [address] [facility] [id number], [place] [address]- 1606 Jun, [facility] [address] [facility] [id number], [place] [address] 2546 Mar, [facility] [address] [id number], [place] [address] 2546 Jul, [facility] [address] [facility] [id number], [place] [address]- 4836 Jul, [facility] [address] [facility] [id number], [place] [address]- 4265 Jul, [facility] [address] [id number] [address]- 9586 Jun, [facility] [address] [id number] [address]- 8136 Jun, [facility] [address] [id number], [place] [address]- 0154 Jun, [facility] [address] [id number], [place] [address]- 9009 Nov, [facility] [address], [place] [address]- 7476 Oct, [facility] [address] [id number], [place] [address]- 0566 Aug, [facility] [address], [place] [address]- 5826 Jun, [facility] [address] [id number], [place] [address]- 3326 Jun, IMMUNIZATIONS Vaccine Route Administration Date Status PPSV23 (PNEUMOVAX) IM Intramuscular January 28, 2017 Administered SOCIAL HISTORY Never Assessed REASON FOR VISIT physical, Pharmacy stated PT needed to be seen for a refill on her depo, other than that PT is just her for her yearly check up- [place] [facility] PLAN OF CARE Activity Details Follow Up prn Reason: VITAL SIGNS Height 60 in 2017-01-28 Temperature 97.8 degrees Fahrenheit 2017-01-28 Heart Rate 78 bpm 2017-01-28 Respiratory Rate 22 2017-01-28 Blood pressure systolic 130 mmHg 2017-01-28 Blood pressure diastolic 80 mmHg 2017-01-28 MEDICATIONS Medication Instructions Dosage Frequency Start Date End Date Duration Status BusPIRone HCl 15 MG 1 tablet by Oral route 2 times per day for anxiety 31 Active Prilosec 20 MG TAKE 1 CAPSULE ORALLY DAILY 31 Active Colace 100 MG 1 capsule by Oral route 1 time per day at bedtime 31 Active Amlodipine Besylate 2.5 MG TAKE 1 TABLET ORALLY DAILY 31 Active Naproxen Sodium 220 mg take 1 tablet (220 mg) by oral route every 8 hours as needed Sep, Active Acetaminophen 500 mg 2 Tablet 2 times per day Sep, Active Depo-Provera 150 MG/ML Intramuscular once every 3 months Inject 1mL 2 Jan, 2021 12 months Active RESULTS No Results PROCEDURES Procedure Date Ordered Result Body Site ANNUAL WELLNESS VST; PPS SUBSQT VST January 28, 2017 PPSV23 (PNEUMOVAX) January 28, 2017 SINGLE IMMUNIZATION ADMIN January 28, 2017 ADMN PNEUMCOC VAC NO FEE DAY January 28, 2017 [facility] VISIT ESTABLISHED PATIENT January 28, 2017 INSTRUCTIONS MEDICATIONS ADMINISTERED No Known Medications MEDICAL (GENERAL) HISTORY Type Description Date Medical History Profound MR Medical History Esophagitis Medical History History of Anemia Medical History Severe scoliosis Medical History Stereotypical habit disorder Surgical History teeth extraction
--- OUTSIDE RECORDS SUMMARY | 2018-11-03 13:20 | XMS REPORT ---
Author Author STEVE QUIROS Organization [employer] Address Unknown Phone Unavailable Care Team Providers Care Wood Drill Operator Name Role Phone STEVE QUIROS CP Unavailable Allergies No Known Allergies Problems Problem Type Condition Code Onset Dates Condition Status Problem Anemia D64.9 Active Problem Scoliosis, unspecified scoliosis type, unspecified spinal region M41.9 Active Problem Esophagitis K20.9 Active Problem Mental retardation F79 Active Assessment Encounter for Depo-Provera contraception Z30.42 Active Medications No Known Medications Procedures Procedure Coding System Code Date THER/PROPH/DIAG INJ, SC/IM CPT-4 72529 Aug 24, 2015 DEPO PROVERA (PT'S OWN) CPT-4 00242 Aug 24, 2015 Results No Known Results Summary Purpose [employer] Submission
--- OUTSIDE RECORDS SUMMARY | 2018-11-03 13:21 | XMS REPORT ---
Author Author STEVE QUIROS Organization [employer] Address Unknown Phone Unavailable Care Team Providers Care Manager Core Name Role Phone STEVE QUIROS CP Unavailable Allergies No Known Allergies Problems Problem Type Condition Code Onset Dates Condition Status Problem Mood swings F39 Active Problem Esophagitis K20.9 Active Problem Raynaud disease I73.00 Active Problem Mental retardation F79 Active Assessment Encounter for Depo-Provera contraception Z30.42 Active Problem Anemia D64.9 Active Problem Scoliosis, unspecified scoliosis type, unspecified spinal region M41.9 Active Medications No Known Medications Procedures Procedure Coding System Code Date THER/PROPH/DIAG INJ, SC/IM CPT-4 94608 May 03, 2016 DEPO PROVERA (PT'S OWN) CPT-4 66119 May 03, 2016 Results No Known Results Summary Purpose [employer] Submission
--- OUTSIDE RECORDS SUMMARY | 2018-11-03 13:21 | XMS REPORT ---
Author Author STEVE QUIROS Organization [employer] Address Unknown Phone Unavailable Care Team Providers Care Mixer Crane Operator Name Role Phone STEVE QUIROS CP [...] System Code Date THER/PROPH/DIAG INJ, SC/IM CPT-4 52198 Jul 19, 2016 DEPO PROVERA (PT'S OWN) CPT-4 00606 Jul 19, 2016 Results No Known Results Summary Purpose [employer] Submission
--- OUTSIDE RECORDS SUMMARY | 2018-11-03 13:21 | XMS REPORT ---
Author MIROSLAVA Lambert [facility] [employer] Address Unknown Phone Unavailable Care Team Providers Care Kid Club Attendant Name Role Phone MIROSLAVA FRANCIS CP Unavailable Allergies, Adverse Reactions, Alerts Substance Reaction Event Type Tuberculin PPD Info Not Available Drug Allergy avoid citrus/pineapple Info Not Available Non Drug Allergy Problems Problem Type Condition Code Onset Dates Condition Status Problem Mood swings F39 Active Problem Esophagitis K20.9 Active Problem Raynaud disease I73.00 Active Problem Mental retardation F79 Active Assessment Tinea pedis of right foot B35.3 Active Problem Anemia D64.9 Active Problem Scoliosis, unspecified scoliosis type, unspecified spinal region M41.9 Active Medications Medication Code System Code Instructions Start Date End Date Status Dosage Colace [facility] [address]-84 100 MG Sep 30, 2014 1 capsule by Oral route 1 time per day at bedtime Naproxen Sodium [facility] [address]-43 220 mg Oct 16, 2011 take 1 tablet (220 mg) by oral route every 8 hours as needed BusPIRone HCl [facility] 68936005407 15 MG 1 tablet by Oral route 2 times per day for anxiety Depo-Provera [facility] [address]-60 150 MG/ML Intramuscular once every 3 months January 22, 2021 Inject 1mL Amlodipine Besylate [facility] 36547027012 2.5 MG TAKE 1 TABLET ORALLY DAILY Prilosec [facility] 30877463478 20 MG TAKE 1 CAPSULE ORALLY DAILY Acetaminophen [facility] [address]-58 500 mg Oct 16, 2011 2 Tablet 2 times per day Clotrimazole [facility] [address]-75 1 % Externally Twice a day Jul 26, 2016 Sep 06, 2016 1 application to affected area Procedures Procedure Coding System Code Date Office Visit, Est Pt., Level 3 CPT-4 14323 Jul 26, 2016 [facility] VISIT ESTABLISHED PATIENT CPT-4 G0467 Jul 26, 2016 Vital Signs Date/Time: Jul 26, 2016 Cardiac Monitoring Heart Rate 80 bpm Weight 87.2 lbs Height 60 in BMI 17.03 Index Blood Pressure Diastolic 58 mmHg Blood Pressure Systolic 92 mmHg Results No Known Results Summary Purpose [employer] Submission
--- OUTSIDE RECORDS SUMMARY | 2018-11-03 13:21 | XMS REPORT ---
Author Author STEVE QUIROS Organization [facility] Address [address] [place] [address] Care Team Providers Care Human Resources Supervisor Name Role Phone STEVE QUIROS Unavailable PROBLEMS Type Condition ICD9-CM Code ASO14-KU Code Onset Dates Condition Status SNOMED Code Problem Raynaud disease I73.00 Active 250849482 Problem Mood swings F39 Active 87889783 Problem Mental retardation F79 Active 68229919 Problem Esophagitis K20.9 Active 52825051 Problem Scoliosis, unspecified scoliosis type, unspecified spinal region M41.9 Active 441259302 Problem Anemia D64.9 Active 572236306 ALLERGIES No Information ENCOUNTERS Encounter Location Date Diagnosis [place] [id number], [place] [address] Feb, Medicare annual wellness visit, initial Z00.00 ; Raynaud disease I73.00 and Mental retardation F79 [id number], [place] [address] Feb, Scoliosis, unspecified scoliosis type, unspecified spinal region M41.9 [place] [id number], [place] [address] Feb, [place] [address], [place] [address] January, [place] [address], [place] [address] Sep, [place] [address], [place] [address] Mar, Scoliosis, unspecified scoliosis type, unspecified spinal region M41.9 ; Mental retardation F79 and Breast cancer screening Z12.39 [facility] [address] [id number] [id number] Feb, Dental examination Z01.20 [place] [address] [place] [id number] [place] [address] Feb, Encounter for immunization Z23 [facility] [id number] [place] [address]- 2810 January, Anemia D64.9 and Screening, lipid Z13.220 [place] [address] [place] [id number] [place] [address]1985- 8911 January, Screening, lipid Z13.220 ; Anemia D64.9 and Encounter for immunization Z23 [place] [address] [place] [id number] [place] [address] 75004- 3392 Dec, [place] [address] [place] [id number] [place] [address]36- 6535 Dec, Encounter for Depo-Provera contraception Z30.42 [place] [address] [place] [id number] [place] [address] 48558- 2484 Sep, Encounter for Depo-Provera contraception Z30.42 [facility] [address] [address] [id number] [place] [address] -4827 Jul, Tinea pedis of right foot B35.3 [facility] [address] [place] [id number] [place] [address] 63757- 8157 Jun, Encounter for Depo-Provera contraception Z30.42 [facility] [address], [place] [address] Apr, Encounter for Depo-Provera contraception Z30.42 [place] [address] [place] [id number] [place] [address] 40541- 3370 January, Encounter for Depo-Provera contraception Z30.42 [facility] [id number] [place] [address] 08471- 3091 January, [facility] [id number] [id number] Dec, Encounter for dental examination Z01.20 [place] [address] [place] [id number] [place] [address] 09995- 4925 Nov, Anemia D64.9 ; Mental retardation F79 ; Scoliosis, unspecified scoliosis type, unspecified spinal region M41.9 ; Raynaud disease I73.00 ; Mood swings F39 and Screening, lipid Z13.220 [place] [address] [place] [id number] [place] [address] 38521- 5005 Nov, Mental retardation F79 ; Scoliosis, unspecified scoliosis type, unspecified spinal region M41.9 ; Anemia D64.9 ; Raynaud disease I73.00 ; Mood swings F39 and Screening, lipid Z13.220 [place] [address] [place] [id number] [place] [address] 01858- 4845 Oct, Encounter for Depo-Provera contraception Z30.42 [place] [address] [place] [id number] [place] [address] 28569- 5951 Oct, [place] [address] [place] [id number] [place] [address] 11833- 7431 Sep, [place] [address] [place] [id number] [place] [address] 54127- 0910 Aug, Encounter for Depo-Provera contraception Z30.42 [place] [id number] [place] [address] 86524- 0000 May, [place] [address] [place] [id number] [place] [address] 36617- 5732 May, Encounter for Depo-Provera contraception V25.49 [place] [address] [place] [id number] [place] [address] 57627- 2319 Feb, Encounter for contraceptive management V25.9 and Unspecified contraceptive management V25.9 [place] [address] [place] [id number] [place] [address] 32741- 7153 Dec, [facility] [place] [facility] [address] [id number] [place] [address]- 7692 Dec, [facility] [place] [facility] [address] [id number] [place] [address]- 6477 Oct, [facility] [place] [facility] [address] [id number] [place] [address]- 4971 Oct, 2014 [facility] [place] [facility] [address] [id number] [place] [address]- 8254 Oct, [facility] [place] [facility] [address] [id number] [place] [address]- 3475 Oct, [facility] [place] [facility] [address] [id number] [place] [address]- 1039 Oct, [facility] [place] [facility] [address] [id number] [place] [address]- 5773 Sep, [facility] [place] [facility] [address] [id number] [place] [address]- 7041 Sep, [facility] [place] [facility] [address] [id number] [place] [address]- 8777 Sep, [facility] [place] [facility] [address] [facility] [id number] [place] [address]- 4102 Sep, [facility] [place] [facility] [address] [id number] [place] [address]- 5640 Aug, [facility] [place] [facility] [address] [id number], [place] [address] 3[address] Aug, [facility] [place] [facility] [address] [id number] [place] [address] Aug, [facility] [place] [facility] [address] [id number] [place] [address]- 8556 Aug, [facility] [place] [facility] [address] [id number] [place] [address]- 9346 Jul, [facility] [place] [facility] [address] [id number], [place] [address]- 1868 Jul, [facility] [place] [facility] [address] [id number] [place] [address]- 9597 Jul, [facility] [place] [facility] [address] [id number] [place] [address]- 7645 Jul, [facility] [place] [facility] [address] [id number] [place] [address]- 4132 Jun, [facility] [place] [facility] [address] [id number] [place] [address]- 7439 Jun, [facility] [place] [facility] [address] [id number] [place] [address]- 6291 Jun, [facility] [place] [facility] [address] [id number] [place] [address]- 7459 Jun, [facility] [place] [facility] [address] [facility] [id number] [place] [address]- 9857 Apr, [facility] [place] [facility] [address] [id number] [place] [address]- 9014 Apr, [facility] [place] [facility] [address] [facility] [id number] [place] [address]- 0772 Mar, [facility] [place] [facility] [address] [facility] [id number] [place] [address]- 5174 Mar, [facility] [place] [facility] [address] [id number] [place] [address]- 2905 Mar, [facility] [place] [facility] [address] [id number], [place] [address]- 5031 Mar, [facility] [place] [facility] [address] [id number] [place] [address]- 0086 Feb, [facility] [place] [facility] [address] [facility] [id number] [place] [address]- 1034 Feb, [facility] [place] [facility] [address] [facility] [id number] [place] [address]- 6206 Dec, [facility] [place] [facility] [address] [id number] [place] [address]- 2795 Dec, [facility] [place] [facility] [address] [id number] [place] [address]- 6330 Dec, [facility] [place] [facility] [address] [id number] [place] [address]- 4209 Dec, [facility] [place] [facility] [address] [id number] [place] [address]- 2544 16 Dec, 2013 [facility] [place] [facility] [address] [id number] [place] [address]- 9637 Dec, [facility] [place] [facility] [address] [id number] [place] [address]- 4767 Dec, [facility] [place] [facility] [address] [id number] [place] [address]- 9186 Nov, [facility] [place] [facility] [address] [id number] [place] [address]- 5680 Nov, [facility] [place] [facility] [address] [id number] [place] [address]- 8102 Oct, [facility] [place] [facility] [address] [id number] [place] [address]- 3565 Oct, [facility] [place] [facility] [address] [id number] [place] [address]- 3204 Sep, [facility] [place] [facility] [address] [id number] [place] [address]- 8483 Sep, [facility] [place] [facility] [address] [id number] [place] [address]- 8598 Aug, [facility] [place] [facility] [address] [id number] [place] [address]- 3872 Aug, [facility] [place] [facility] [address] [id number] [place] [address]- 0086 Jul, [facility] [place] [facility] [address] [id number] [place] [address]- 4020 Jul, [facility] [place] [facility] [address] [id number] [place] [address]- 1687 Jul, [facility] [place] [facility] [address] [id number] [place] [address]- 3040 Jul, [facility] [place] [facility] [address] [id number] [place] [address]- 4919 Jun, [facility] [place] [facility] [address] [id number] [place] [address]- 2413 Jun, [facility] [place] [facility] [address] [id number] [place] [address]- 7283 Jun, [facility] [place] [facility] [address] [id number] [place] [address]- 3044 Jun, [facility] [place] [facility] [address] [id number] [place] [address]- 1636 Apr, [facility] [place] [facility] [address] [id number] [place] [address]- 8026 Apr, [facility] [place] [facility] [address] [id number] [place] [address]- 4507 Mar, [facility] [place] [facility] [address] [id number] [place] [address]- 7107 Feb, [facility] [place] [facility] [address] [id number] [place] [address]- 2186 January, [facility] [place] [facility] [address] [id number] [place] [address]- 2549 January, [facility] [place] [facility] [address] [id number] [place] [address]- 2544 Nov, [facility] [place] [facility] [address] [id number] [place] [address]- 0139 Oct, [facility] [place] [facility] [address] [id number] [place] [address]- 2546 Oct, [facility] [place] [facility] [address] [id number] [place] [address]- 2431 Sep, [facility] [place] [facility] [address] [id number] [place] [address]- 4632 Aug, [facility] [place] [facility] [address] [id number] [place] [address]- 2763 Jul, [facility] [place] [facility] [address] [id number] [place] [address]- 2692 Jul, [facility] [place] [facility] [address] [id number] [place] [address]- 9065 Jul, [facility] [place] [facility] [address] [id number] [place] [address]- 2103 Jul, [facility] [place] [facility] [address] [id number] [place] [address]- 9228 Jul, [facility] [place] [facility] [address] [id number] [place] [address]- 0847 Jul, [facility] [place] [facility] [address] [id number] [place] [address]- 6585 Jun, [facility] [place] [facility] [address] [id number] [place] [address]- 1314 Jun, [facility] [place] [facility] [address] [id number] [place] [address]- 5946 May, [facility] [place] [facility] [address] [id number] [place] [address]- 4404 17 May, 2012 [facility] [place] [facility] [address] [id number] [place] [address]- 3818 May, [facility] [place] [facility] [address] [id number] [place] [address]- 6615 Apr, [facility] [place] [facility] [address] [id number] [place] [address]- 3406 Apr, [facility] [place] [facility] [address] [id number] [place] [address]- 9532 Apr, [facility] [address] [id number] [place] [address]- 1763 Apr, [facility] [place] [facility] [address] [id number] [place] [address]- 1846 Feb, [facility] [place] [facility] [address] [id number] [place] [address]- 4885 Feb, [facility] [place] [facility] [address] [id number] [place] [address]- 5702 January, [facility] [address] [id number] [place] [address]- 7759 January, [facility] [place] [facility] [address] [id number] [place] [address]- 7046 Dec, [facility] [place] [facility] [address] [id number] [place] [address]- 9828 Oct, [facility] [place] [facility] [address] [id number] [place] [address]- 3993 Oct, [facility] [place] [facility] [address] [id number] [place] [address]- 6370 Oct, [facility] [place] [facility] [address] [id number] [place] [address]- 7734 Sep, [facility] [place] [facility] [address] [id number] [place] [address]- 4179 Sep, [facility] [place] [facility] [address] [id number] [place] [address]- 5072 Sep, [facility] [place] [facility] [address] [id number] [place] [address]- 9651 Sep, [facility] [place] [facility] [address] [id number] [place] [address]- 4697 Sep, [facility] [place] [facility] [address] [id number] [place] [address]- 0936 Sep, [facility] [place] [facility] [address] [id number] [place] [address]- 8844 Jul, [facility] [place] [facility] [address] [id number] [place] [address]- 1924 Jul, [facility] [place] [facility] [address] [id number] [place] [address]- 8200 Jul, [facility] [place] [facility] [address] [id number] [place] [address]- 9206 Jul, [facility] [place] [facility] [address] [id number] [place] [address]- 1136 Jul, [facility] [place] [facility] [address] [id number] [place] [address]- 6547 Jun, [facility] [place] [facility] [address] [id number] [place] [address]- 2675 Mar, [facility] [place] [facility] [address] [id number] [place] [address]- 1474 Jul, [facility] [place] [facility] [address] [id number] [place] [address]- 2851 Jul, [facility] [place] [facility] [address] [id number] [place] [address]- 8641 Jul, [facility] [place] [facility] [address] [facility] [id number] [place] [address]- 8823 Jun, [facility] [place] [facility] [address] [id number] [place] [address]- 4725 Jun, [facility] [place] [facility] [address] [id number] [place] [address]- 2547 18 Jun, 2010 [facility] [place] [facility] [address] [id number] [place] [address]- 7975 Nov, [facility] [place] [facility] [address] [id number] [place] [address]- 2731 16 Oct, 2009 [facility] [place] [facility] [address] [id number] [place] [address]- 4439 Aug, [facility] [address] [facility] [id number] [place] [address]- 2078 Jun, [facility] [address] [facility] [id number], [place] [address]- 8720 Jun, IMMUNIZATIONS No Known Immunizations SOCIAL HISTORY Never Assessed REASON FOR VISIT PRN Medications Form PLAN OF CARE VITAL SIGNS MEDICATIONS Unknown Medications RESULTS No Results PROCEDURES No Known procedures INSTRUCTIONS MEDICATIONS ADMINISTERED No Known Medications MEDICAL (GENERAL) HISTORY Type Description Date Medical History Profound MR Medical History Esophagitis Medical History History of Anemia Medical History Severe scoliosis Medical History Stereotypical habit disorder Surgical History teeth extraction
--- OUTSIDE RECORDS SUMMARY | 2018-11-03 13:21 | XMS REPORT ---
Author Author JUSTIN HEAD [employer] Address Unknown Phone Unavailable Care Team Providers Care Hand Picker Name Role Phone JUSTIN HEAD CP Unavailable Allergies No Known Allergies Problems Problem Type Condition Code Onset Dates Condition Status Problem Anemia D64.9 Active Problem Scoliosis, unspecified scoliosis type, unspecified spinal region M41.9 Active Problem Esophagitis K20.9 Active Problem Mental retardation F79 Active Medications No Known Medications Results No Known Results Summary Purpose [employer] Submission
--- OUTSIDE RECORDS SUMMARY | 2018-11-03 13:21 | XMS REPORT ---
Author Author STEVE QUIROS Organization [employer] Address Unknown Phone Unavailable Care Team Providers Care Canal Lock Tender Chief Operator Name Role Phone STEVE QUIROS CP Unavailable Allergies No Known Allergies Problems Problem Type Condition ICD-9 Code Onset Dates Condition Status Assessment Encounter for Depo-Provera contraception V25.49 Active Problem Routine gynecological examination V72.31 Active Problem Unspecified urinary incontinence 788.30 Active Problem Surveillance of other previously prescribed contraceptive method V25.49 Active Problem Routine general medical examination at health care facility V70.0 Active Problem Unspecified breast screening V76.10 Active Problem Dysuria 788.1 Active Problem Unspecified contraceptive management V25.9 Active Problem Need for prophylactic vaccination and inoculation, Influenza V04.81 Active Problem Glossodynia 529.6 Active Medications No Known Medications Procedures Procedure Coding System Code Date THER/PROPH/DIAG INJ, SC/IM CPT-4 86269 Jun 03, 2015 DEPO PROVERA (PT'S OWN) CPT-4 33538 Jun 03, 2015 Results No Known Results Summary Purpose [employer] Submission
--- OUTSIDE RECORDS SUMMARY | 2018-11-03 13:21 | XMS REPORT ---
Author Author STEVE QUIROS [facility] Address [address] [place] [address] Care Team Providers Care Buffing Line Set Up Worker Name Role Phone STEVE QUIROS Unavailable PROBLEMS Type Condition ICD9-CM Code QPP64-IX Code Onset Dates Condition Status SNOMED Code Problem Raynaud disease I73.00 Active 364718342 Problem Mood swings F39 Active 27035273 Problem Mental retardation F79 Active 70451734 Problem Esophagitis K20.9 Active 78306474 Problem Scoliosis, unspecified scoliosis type, unspecified spinal region M41.9 Active 471497320 Problem Anemia D64.9 Active 441321873 ALLERGIES No Known Allergies SOCIAL HISTORY No smoking Hx information available PLAN OF CARE VITAL SIGNS MEDICATIONS No Known Medications RESULTS No Results PROCEDURES Procedure Date Ordered Related Diagnosis Body Site DEPO PROVERA (PT'S OWN) Oct 11, 2016 THER/PROPH/DIAG INJ, SC/IM Oct 11, 2016 IMMUNIZATIONS Vaccine Route Administration Date Status DEPO PROVERA (PT'S OWN) IM Intramuscular Oct 11, 2016 Administered
--- OUTSIDE RECORDS SUMMARY | 2018-11-03 13:22 | XMS REPORT | Continuity of Care Document ---
Author Author [facility] Address Unknown Phone Unavailable Allergies Active Description Code Type Severity Reaction Onset Reported/Identified Relationship to Patient Clinical Status Yes Pineapple Food Allergy N/A N/A 07/05/2009 Yes PPD Skin Test OA N/A N/A 07/05/2009 Yes Pineapple Food Allergy 07/05/2009 Yes PPD Skin Test OA 07/05/2009 Yes TB SKIN TEST TB SKIN TEST Unknown N/A 02/28/2011 Medications There is no data. Problems Date Dx Coded Attending Type Code Diagnosis Diagnosed By 05/26/2008 ALEJANDRA WHITAKER DO 293.84 OR ORG ANX SYN 05/26/2008 ALEJANDRA WHITAKER DO 318.2 PROFOUND MENTAL RETARDATION 05/26/2008 293.84 OR ORG ANX SYN 05/26/2008 318.2 PROFOUND MENTAL RETARDATION 05/26/2008 293.84 OR ORG ANX SYN 05/26/2008 318.2 PROFOUND MENTAL RETARDATION 05/26/2008 ALEJANDRA WHITAKER DO 293.84 OR ORG ANX SYN 05/26/2008 ALEJANDRA WHITAKER DO 318.2 PROFOUND MENTAL RETARDATION 05/26/2008 293.84 OR ORG ANX SYN 05/26/2008 318.2 PROFOUND MENTAL RETARDATION 05/26/2008 293.84 OR ORG ANX SYN 05/26/2008 318.2 PROFOUND MENTAL RETARDATION 05/26/2008 ISHAAN PACKAGING MANAGER, STEVE S 293.84 OR ORG ANX SYN 05/26/2008 ISHAAN PACKAGING MANAGER, STEVE S 318.2 PROFOUND MENTAL RETARDATION 05/26/2008 ISHAAN PACKAGING MANAGER, STEVE S 293.84 OR ORG ANX SYN 05/26/2008 ISHAANZULAY MAHONEY, STEVE S 318.2 PROFOUND MENTAL RETARDATION 05/26/2008 ALEJANDRA WHITAKER DO 293.84 OR ORG ANX SYN 05/26/2008 ALEJANDRA WHITAKER DO 318.2 PROFOUND MENTAL RETARDATION 05/26/2008 ALEJANDRA WHITAKER DO 293.84 OR ORG ANX SYN 05/26/2008 WHITAKER DO, ALEJANDRA K 318.2 PROFOUND MENTAL RETARDATION 05/26/2008 MARTINEZ PACKAGING MANAGERCHRISTINE Arnold 293.84 OR ORG ANX SYN 05/26/2008 MICHELLE BORRERONCHRISTINE 318.2 PROFOUND MENTAL RETARDATION 05/26/2008 ISHAAN PACKAGING MANAGER, STEVE S 293.84 OR ORG ANX SYN 05/26/2008 ISHAAN PACKAGING MANAGER, STEVE S 318.2 PROFOUND MENTAL RETARDATION 05/26/2008 ISHAAN PACKAGING MANAGER, STEVE S 293.84 OR ORG ANX SYN 05/26/2008 ISHAAN PACKAGING MANAGER, STEVE S 318.2 PROFOUND MENTAL RETARDATION 05/26/2008 WHITAKER DO, ALEJANDRA K 293.84 OR ORG ANX SYN 05/26/2008 WHITAKER DO, ALEJANDRA K 318.2 PROFOUND MENTAL RETARDATION 05/26/2008 WHITAKER DO, ALEJANDRA K 293.84 OR ORG ANX SYN 05/26/2008 WHITAKER DO, ALEJANDRA K 318.2 PROFOUND MENTAL RETARDATION 05/26/2008 ISHAAN PACKAGING MANAGER, STEVE S 293.84 OR ORG ANX SYN 05/26/2008 ISHAAN BORRERON, STEVE S 318.2 PROFOUND MENTAL RETARDATION 05/26/2008 ADILENE PACKAGING MANAGER, JUSTIN J 293.84 OR ORG ANX SYN 05/26/2008 ADILENE PACKAGING MANAGER, JUSTIN J 318.2 PROFOUND MENTAL RETARDATION 05/26/2008 WHITAKER DO, ALEJANDRA K 293.84 OR ORG ANX SYN 05/26/2008 WHITAKER DO, ALEJANDRA K 318.2 PROFOUND MENTAL RETARDATION 05/26/2008 ISHAAN PACKAGING MANAGER, STEVE S 293.84 OR ORG ANX SYN 05/26/2008 ISHAAN PACKAGING MANAGER, STEVE S 318.2 PROFOUND MENTAL RETARDATION 05/26/2008 WHITAKER DO, ALEJANDRA K 293.84 OR ORG ANX SYN 05/26/2008 WHITAKER DO, ALEJANDRA K 318.2 PROFOUND MENTAL RETARDATION 06/08/2008 WHITAKER DO, ALEJANDRA K 285.29 Anemia Chronic Disease 06/08/2008 WHITAKER DO, ALEJANDRA K 319 MENTAL RETARDATION UNSPEC 06/08/2008 285.29 Anemia Chronic Disease 06/08/2008 319 MENTAL RETARDATION UNSPEC 06/08/2008 285.29 Anemia Chronic Disease 06/08/2008 319 MENTAL RETARDATION UNSPEC 06/08/2008 WHITAKER DO ALEJANDRA K 285.29 Anemia Chronic Disease 06/08/2008 WHITAKER DO, ALEJANDRA K 319 MENTAL RETARDATION UNSPEC 06/08/2008 285.29 Anemia Chronic Disease 06/08/2008 319 MENTAL RETARDATION UNSPEC 06/08/2008 285.29 Anemia Chronic Disease 06/08/2008 319 MENTAL RETARDATION UNSPEC 06/08/2008 ISHANA MAHONEY STEVE S 285.29 Anemia Chronic Disease 06/08/2008 XAVIER QUIROS APRNNDA S 319 MENTAL RETARDATION UNSPEC 06/08/2008 XAVIER QUIROS APRNNDA S 285.29 Anemia Chronic Disease 06/08/2008 XAVIER QUIROS APRNNDA S 319 MENTAL RETARDATION UNSPEC 06/08/2008 WHITAKER DO, ALEJANDRA K 285.29 Anemia Chronic Disease 06/08/2008 WHITAKER DO, ALEJANDRA K 319 MENTAL RETARDATION UNSPEC 06/08/2008 WHITAKER DO, ALEJANDRA K 285.29 Anemia Chronic Disease 06/08/2008 WHITAKER DO, ALEJANDRA K 319 MENTAL RETARDATION UNSPEC 06/08/2008 MICHELLE MAHONEY CHRISTINE HOLLOWAY 285.29 Anemia Chronic Disease 06/08/2008 MICHELLE MAHONEY CHRISTINE HOLLOWAY 319 MENTAL RETARDATION UNSPEC 06/08/2008 XAVIER QUIROS APRNNDA S 285.29 Anemia Chronic Disease 06/08/2008 AXVIER QUIROS APRNNDA S 319 MENTAL RETARDATION UNSPEC 06/08/2008 XAVIER QUIROS APRNNDA S 285.29 Anemia Chronic Disease 06/08/2008 XAVIER QUIROS APRNNDA S 319 MENTAL RETARDATION UNSPEC 06/08/2008 WHITAKER DO, ALEJANDRA K 285.29 Anemia Chronic Disease 06/08/2008 WHITAKER DO, ALEJANDRA K 319 MENTAL RETARDATION UNSPEC 06/08/2008 WHITAKER DO, ALEJANDRA K 285.29 Anemia Chronic Disease 06/08/2008 WHITAKER DO, ALEJANDRA K 319 MENTAL RETARDATION UNSPEC 06/08/2008 XAVIER QUIROS APRNNDA S 285.29 Anemia Chronic Disease 06/08/2008 XAVIER QUIROS APRNNDA S 319 MENTAL RETARDATION UNSPEC 06/08/2008 ONÉ HEAD APRNA J 285.29 Anemia Chronic Disease 06/08/2008 MARIANGEL HEAD APRNINDA J 319 MENTAL RETARDATION UNSPEC 06/08/2008 WHITAKER DO, ALEJANDRA K 285.29 Anemia Chronic Disease 06/08/2008 WHITAKER DO, ALEJANDRA K 319 MENTAL RETARDATION UNSPEC 06/08/2008 XAVIER QUIROS APRNNDA S 285.29 Anemia Chronic Disease 06/08/2008 MARCO QUIROS APRNA S 319 MENTAL RETARDATION UNSPEC 06/08/2008 WHITAKER DO, ALEJANDRA K 285.29 Anemia Chronic Disease 06/08/2008 WHITAKER DO, ALEJANDRA K 319 MENTAL RETARDATION UNSPEC 07/06/2008 WHITAKER DO, ALEJANDRA K 285.9 Anemia Unspecified 07/06/2008 285.9 Anemia Unspecified 07/06/2008 285.9 Anemia Unspecified 07/06/2008 WHITAKER DO, ALEJANDRA K 285.9 Anemia Unspecified 07/06/2008 285.9 Anemia Unspecified 07/06/2008 285.9 Anemia Unspecified 07/06/2008 XAVIER QUIROS APRNNDA S 285.9 Anemia Unspecified 07/06/2008 ISHAAN MAHONEY STEVE S 285.9 Anemia Unspecified 07/06/2008 WHITAKER DO, ALEJANDRA K 285.9 Anemia Unspecified 07/06/2008 WHITAKER DO, ALEJANDRA K 285.9 Anemia Unspecified 07/06/2008 CHRISTINE MARTINEZ APRN 285.9 Anemia Unspecified 07/06/2008 ISHAAN MAHONEY STEVE S 285.9 Anemia Unspecified 07/06/2008 XAVIER QUIROS APRNNDA S 285.9 Anemia Unspecified 07/06/2008 WHITAKER DO, ALEJANDRA K 285.9 Anemia Unspecified 07/06/2008 WHITAKER DO, ALEJANDRA K 285.9 Anemia Unspecified 07/06/2008 ISHAAN MAHONEY STEVE S 285.9 Anemia Unspecified 07/06/2008 JUSTIN HEAD APRN 285.9 Anemia Unspecified 07/06/2008 WHITAKER DO, ALEJANDRA K 285.9 Anemia Unspecified 07/06/2008 ISHAAN MAHONEY STEVE S 285.9 Anemia Unspecified 07/06/2008 WHITAKER DO, ALEJANDRA K 285.9 Anemia Unspecified 09/20/2009 WHITAKER DO, ALEJANDRA K 300.00 AN ANXIETY UNSPEC 09/20/2009 WHITAKER DO, ALEJANDRA K 530.10 Esophagitis, Unspecified 09/20/2009 300.00 AN ANXIETY UNSPEC 09/20/2009 530.10 Esophagitis, Unspecified 09/20/2009 300.00 AN ANXIETY UNSPEC 09/20/2009 530.10 Esophagitis, Unspecified 09/20/2009 WHITAKER DO, ALEJANDRA K 300.00 AN ANXIETY UNSPEC 09/20/2009 WHITAKER DO, ALEJANDRA K 530.10 Esophagitis, Unspecified 09/20/2009 300.00 AN ANXIETY UNSPEC 09/20/2009 530.10 Esophagitis, Unspecified 09/20/2009 300.00 AN ANXIETY UNSPEC 09/20/2009 530.10 Esophagitis, Unspecified 09/20/2009 ISHAAN PACKAGING MANAGER STEVE S 300.00 AN ANXIETY UNSPEC 09/20/2009 ISHAAN PACKAGING MANAGER STEVE S 530.10 Esophagitis, Unspecified 09/20/2009 ISHAAN PACKAGING MANAGER STEVE S 300.00 AN ANXIETY UNSPEC 09/20/2009 ISHAAN PACKAGING MANAGER STEVE S 530.10 Esophagitis, Unspecified 09/20/2009 WHITAKER DO, ALEJANDRA K 300.00 AN ANXIETY UNSPEC 09/20/2009 WHITAKER DO, ALEJANDRA K 530.10 Esophagitis, Unspecified 09/20/2009 WHITAKER DO, ALEJANDRA K 300.00 AN ANXIETY UNSPEC 09/20/2009 WHITAKER DO, ALEJANDRA K 530.10 Esophagitis, Unspecified 09/20/2009 MICHELLE MAHONEY CHRISTINE HOLLOWAY 300.00 AN ANXIETY UNSPEC 09/20/2009 MICHELLE MAHONEY CHRISTINE HOLLOWAY 530.10 Esophagitis, Unspecified 09/20/2009 ISHAAN MAHONEY STEVE S 300.00 AN ANXIETY UNSPEC 09/20/2009 ISHAAN MAHONEY STEVE S 530.10 Esophagitis, Unspecified 09/20/2009 ISHAAN PACKAGING MANAGER, STEVE S 300.00 AN ANXIETY UNSPEC 09/20/2009 ISHAAN MAHONEY STEVE S 530.10 Esophagitis, Unspecified 09/20/2009 WHITAKER DO, ALEJANDRA K 300.00 AN ANXIETY UNSPEC 09/20/2009 WHITAKER DO, ALEJANDRA K 530.10 Esophagitis, Unspecified 09/20/2009 WHITAKER DO, ALEJANDRA K 300.00 AN ANXIETY UNSPEC 09/20/2009 WHITAKER DO, ALEJANDRA K 530.10 Esophagitis, Unspecified 09/20/2009 ISHAAN PACKAGING MANAGER STEVE S 300.00 AN ANXIETY UNSPEC 09/20/2009 ISHAAN PACKAGING MANAGER STEVE S 530.10 Esophagitis, Unspecified 09/20/2009 NOÉ HEAD APRNA J 300.00 AN ANXIETY UNSPEC 09/20/2009 JUSTIN HEAD APRN 530.10 Esophagitis, Unspecified 09/20/2009 WHITAKER DO, ALEJANDRA K 300.00 AN ANXIETY UNSPEC 09/20/2009 WHITAKER DO, ALEJANDRA K 530.10 Esophagitis, Unspecified 09/20/2009 MARCO QUIROS APRNA S 300.00 AN ANXIETY UNSPEC 09/20/2009 XAVIER QUIROS APRNNDA S 530.10 Esophagitis, Unspecified 09/20/2009 WHITAKER DO, ALEJANDRA K 300.00 AN ANXIETY UNSPEC 09/20/2009 WHITAKER DO, ALEJANDRA K 530.10 Esophagitis, Unspecified 10/28/2009 WHITAKER DO, ALEJANDRA K 312.30 I IMPULSE CONTROL DISORDER NOS 10/28/2009 312.30 I IMPULSE CONTROL DISORDER NOS 10/28/2009 312.30 I IMPULSE CONTROL DISORDER NOS 10/28/2009 WHITAKER DO, ALEJANDRA K 312.30 I IMPULSE CONTROL DISORDER NOS 10/28/2009 312.30 I IMPULSE CONTROL DISORDER NOS 10/28/2009 312.30 I IMPULSE CONTROL DISORDER NOS 10/28/2009 MARCO QUIROS APRNA S 312.30 I IMPULSE CONTROL DISORDER NOS 10/28/2009 MARCO QUIROS APRNA S 312.30 I IMPULSE CONTROL DISORDER NOS 10/28/2009 WHITAKER DO, ALEJANDRA K 312.30 I IMPULSE CONTROL DISORDER NOS 10/28/2009 WHITAKER DO, ALEJANDRA K 312.30 I IMPULSE CONTROL DISORDER NOS 10/28/2009 CHRISTINE MARTINEZ APRN 312.30 I IMPULSE CONTROL DISORDER NOS 10/28/2009 MARCO QUIROS APRNA S 312.30 I IMPULSE CONTROL DISORDER NOS 10/28/2009 MARCO QUIROS APRNA S 312.30 I IMPULSE CONTROL DISORDER NOS 10/28/2009 WHITAKER DO, ALEJANDRA K 312.30 I IMPULSE CONTROL DISORDER NOS 10/28/2009 WHITAKER DO, ALEJANDRA K 312.30 I IMPULSE CONTROL DISORDER NOS 10/28/2009 XAVIER QUIROS APRNNDA S 312.30 I IMPULSE CONTROL DISORDER NOS 10/28/2009 JUSTIN HEAD APRN 312.30 I IMPULSE CONTROL DISORDER NOS 10/28/2009 WHITAKER DO, ALEJANDRA K 312.30 I IMPULSE CONTROL DISORDER NOS 10/28/2009 MARCO QUIROS APRNA S 312.30 I IMPULSE CONTROL DISORDER NOS 10/28/2009 WHITAKER DO, ALEJANDRA K 312.30 I IMPULSE CONTROL DISORDER NOS 11/08/2009 WHITAKER DO, ALEJANDRA K 530.81 Gerd 11/08/2009 530.81 Gerd 11/08/2009 530.81 Gerd 11/08/2009 WHITAKER DO, ALEJANDRA K 530.81 Gerd 11/08/2009 530.81 Gerd 11/08/2009 530.81 Gerd 11/08/2009 ISHAAN MAHONEY STEVE S 530.81 Gerd 11/08/2009 ISHAAN MAHONEY STEVE S 530.81 Gerd 11/08/2009 WHITAKER DO, ALEJANDRA K 530.81 Gerd 11/08/2009 WHITAKER DO, ALEJANDRA K 530.81 Gerd 11/08/2009 CHRISTINE MARTINEZ APRN 530.81 Gerd 11/08/2009 ISHAAN MAHONEY STEVE S 530.81 Gerd 11/08/2009 ISHAAN MAHONEY STEVE S 530.81 Gerd 11/08/2009 WHITAKER DO, ALEJANDRA K 530.81 Gerd 11/08/2009 WHITAKER DO, ALEJANDRA K 530.81 Gerd 11/08/2009 ISHAAN MAHONEY STEVE S 530.81 Gerd 11/08/2009 JUSTIN HEAD APRN 530.81 Gerd 11/08/2009 WHITAKER DO, ALEJANDRA K 530.81 Gerd 11/08/2009 ISHAAN MAHONEY STEVE S 530.81 Gerd 11/08/2009 WHITAKER DO, ALEJANDRA K 530.81 Gerd 11/30/2009 WHITAKER DO, ALEJANDRA K 782.3 EDEMA 11/30/2009 782.3 EDEMA 11/30/2009 782.3 EDEMA 11/30/2009 WHITAKER DO, ALEJANDRA K 782.3 EDEMA 11/30/2009 782.3 EDEMA 11/30/2009 782.3 EDEMA 11/30/2009 ISHAAN PACKAGING MANAGER STEVE S 782.3 EDEMA 11/30/2009 ISHAAN MAHONEY STEVE S 782.3 EDEMA 11/30/2009 WHITAKER DO, ALEJANDRA K 782.3 EDEMA 11/30/2009 WHITAKER DO, ALEJANDRA K 782.3 EDEMA 11/30/2009 CHRISTINE MARTINEZ APRN 782.3 EDEMA 11/30/2009 ISHAAN MAHONEY STEVE S 782.3 EDEMA 11/30/2009 ISHAAN PACKAGING MANAGERXAVIER ArnoldNDA S 782.3 EDEMA 11/30/2009 WHITAKER DO, ALEJANDRA K 782.3 EDEMA 11/30/2009 WHITAKER DO, ALEJANDRA K 782.3 EDEMA 11/30/2009 ISHAAN PACKAGING MANAGERXAVIERSTEVE S 782.3 EDEMA 11/30/2009 JUSTIN HEAD APRN 782.3 EDEMA 11/30/2009 WHITAKER DO, ALEJANDRA K 782.3 EDEMA 11/30/2009 ISHAAN PACKAGING MANAGER, STEVE S 782.3 EDEMA 11/30/2009 WHITAKER DO, ALEJANDRA K 782.3 EDEMA 03/10/2010 WHITAKER DO, ALEJANDRA K V58.69 LONG-TERM (CURRENT) USE OF OTHER MEDICATIONS 03/10/2010 V58.69 LONG-TERM ( CURRENT) USE OF OTHER MEDICATIONS 03/10/2010 V58.69 LONG-TERM ( CURRENT) USE OF OTHER MEDICATIONS 03/10/2010 WHITAKER DO ALEJANDRA K V58.69 LONG-TERM (CURRENT) USE OF OTHER MEDICATIONS 03/10/2010 V58.69 LONG-TERM ( CURRENT) USE OF OTHER MEDICATIONS 03/10/2010 V58.69 LONG-TERM ( CURRENT) USE OF OTHER MEDICATIONS 03/10/2010 XAVIER QUIROS APRNNDA S V58.69 LONG-TERM (CURRENT) USE OF OTHER MEDICATIONS 03/10/2010 ISHAAN PACKAGING MANAGERXAVIER ArnoldNDA S V58.69 LONG-TERM (CURRENT) USE OF OTHER MEDICATIONS 03/10/2010 WHITAKER DO ALEJANDRA K V58.69 LONG-TERM (CURRENT) USE OF OTHER MEDICATIONS 03/10/2010 WHITAKER DO ALEJANDRA K V58.69 LONG-TERM (CURRENT) USE OF OTHER MEDICATIONS 03/10/2010 MICHELLE MAHONEY CHRISTINE JEWEL V58.69 LONG-TERM (CURRENT) USE OF OTHER MEDICATIONS 03/10/2010 ISHAAN PACKAGING MANAGERXAVIER ArnoldNDA S V58.69 LONG-TERM (CURRENT) USE OF OTHER MEDICATIONS 03/10/2010 ISHAAN PACKAGING MANAGERXAVIER ArnoldNDA S V58.69 LONG-TERM (CURRENT) USE OF OTHER MEDICATIONS 03/10/2010 WHITAKER DO ALEJANDRA K V58.69 LONG-TERM (CURRENT) USE OF OTHER MEDICATIONS 03/10/2010 WHITAKER DO, ALEJANDRA K V58.69 LONG-TERM (CURRENT) USE OF OTHER MEDICATIONS 03/10/2010 STEVE QUIROS APRN S V58.69 LONG-TERM (CURRENT) USE OF OTHER MEDICATIONS 03/10/2010 JUSTIN HEAD APRN V58.69 LONG-TERM (CURRENT) USE OF OTHER MEDICATIONS 03/10/2010 ALEJANDRA WHITAKER DO V58.69 LONG-TERM (CURRENT) USE OF OTHER MEDICATIONS 03/10/2010 XAVIER QUIROS APRNNDA S V58.69 LONG-TERM (CURRENT) USE OF OTHER MEDICATIONS 03/10/2010 ALEJANDRA WHITAKER DO V58.69 LONG-TERM (CURRENT) USE OF OTHER MEDICATIONS 11/13/2010 ALEJANDRA WHITAKER DO 079.99 Unspecified Viral Infection 11/13/2010 ALEJANDRA WHITAKER DO 611.6 GALACTORRHEA NOT ASSOCIATED WITH CHILDBIRTH 11/13/2010 ALEJANDRA WHITAKER DO 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99 Unspecified Viral Infection 11/13/2010 611.6 GALACTORRHEA NOT ASSOCIATED WITH CHILDBIRTH 11/13/2010 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 11/13/2010 XAVIER QUIROS APRNNDA S 079.99 Unspecified Viral Infection 11/13/2010 XAVIER QUIROS APRNNDA S 611.6 GALACTORRHEA NOT ASSOCIATED WITH CHILDBIRTH 11/13/2010 ISHAAN PACKAGING MANAGER, STEVE S 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 11/13/2010 ISHAAN PACKAGING MANAGER, STEVE S 079.99 Unspecified Viral Infection 11/13/2010 ISHAAN PACKAGING MANAGER, STEVE S 611.6 GALACTORRHEA NOT ASSOCIATED WITH CHILDBIRTH 11/13/2010 ISHAAN PACKAGING MANAGER, STEVE S 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 11/13/2010 WHITAKER DO, ALEJANDRA K 079.99 Unspecified Viral Infection 11/13/2010 WHITAKER DO, ALEJANDRA K 611.6 GALACTORRHEA NOT ASSOCIATED WITH CHILDBIRTH 11/13/2010 WHITAKER DO, ALEJANDRA K 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 11/13/2010 WHITAKER DO, ALEJANDRA K 079.99 Unspecified Viral Infection 11/13/2010 WHITAKER DO, ALEJANDRA K 611.6 GALACTORRHEA NOT ASSOCIATED WITH CHILDBIRTH 11/13/2010 WHITAKER DO, ALEJANDRA K 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 11/13/2010 CHRISTINE MARTINEZ APRN 079.99 Unspecified Viral Infection 11/13/2010 CHRISTINE MARTINEZ APRN 611.6 GALACTORRHEA NOT ASSOCIATED WITH CHILDBIRTH 11/13/2010 CHRISTINE MARTINEZ APRN 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 11/13/2010 ISHAAN PACKAGING MANAGER, STEVE S 079.99 Unspecified Viral Infection 11/13/2010 ISHAAN PACKAGING MANAGER, STEVE S 611.6 GALACTORRHEA NOT ASSOCIATED WITH CHILDBIRTH 11/13/2010 ISHAAN PACKAGING MANAGER, STEVE S 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 11/13/2010 ISHAAN PACKAGING MANAGER, STEVE S 079.99 Unspecified Viral Infection 11/13/2010 ISHAAN PACKAGING MANAGER, STEVE S 611.6 GALACTORRHEA NOT ASSOCIATED WITH CHILDBIRTH 11/13/2010 ISHAAN PACKAGING MANAGER, STEVE S 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 11/13/2010 WHITAKER DO, ALEJANDRA K 079.99 Unspecified Viral Infection 11/13/2010 WHITAKER DO, ALEJANDRA K 611.6 GALACTORRHEA NOT ASSOCIATED WITH CHILDBIRTH 11/13/2010 WHITAKER DO, ALEJANDRA K 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 11/13/2010 WHITAKER DO, ALEJANDRA K 079.99 Unspecified Viral Infection 11/13/2010 WHITAKER DO, ALEJANDRA K 611.6 GALACTORRHEA NOT ASSOCIATED WITH CHILDBIRTH 11/13/2010 ALEJANDRA WHITAKER DO K 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 11/13/2010 ISHAAN MAHONEY STEVE S 079.99 Unspecified Viral Infection 11/13/2010 ISHAANZULAY MAHONEY, STEVE S 611.6 GALACTORRHEA NOT ASSOCIATED WITH CHILDBIRTH 11/13/2010 ISHAAN MAHONEY STEVE S 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 11/13/2010 ADILENE PACKAGING MANAGER, JUSTIN J 079.99 Unspecified Viral Infection 11/13/2010 ADILENE PACKAGING MANAGER, JUSTIN J 611.6 GALACTORRHEA NOT ASSOCIATED WITH CHILDBIRTH 11/13/2010 ADILENE PACKAGING MANAGER, JUSTIN J 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 11/13/2010 ALEJANDRA WHITAKER DO K 079.99 Unspecified Viral Infection 11/13/2010 ALEJANDRA WHITAKER DO K 611.6 GALACTORRHEA NOT ASSOCIATED WITH CHILDBIRTH 11/13/2010 ALEJANDRA WHITAKER DO K 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 11/13/2010 XAVIER QUIROS APRNNDA S 079.99 Unspecified Viral Infection 11/13/2010 XAVIER QUIROS APRNNDA S 611.6 GALACTORRHEA NOT ASSOCIATED WITH CHILDBIRTH 11/13/2010 XAVIER QUIROS APRNNDA S 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 11/13/2010 ALEJANDRA WHITAKER DO K 079.99 Unspecified Viral Infection 11/13/2010 ALEJANDRA WHITAKER DO K 611.6 GALACTORRHEA NOT ASSOCIATED WITH CHILDBIRTH 11/13/2010 ALEJANDRA WHITAKER DO K 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 01/29/2011 ALEJANDRA WHITAKER DO 293.83 OR ORG ANX SYN MOOD DISORDER 01/29/2011 293.83 OR ORG ANX SYN MOOD DISORDER 01/29/2011 293.83 OR ORG ANX SYN MOOD DISORDER 01/29/2011 ALEJANDRA WHITAKER DO 293.83 OR ORG ANX SYN MOOD DISORDER 01/29/2011 293.83 OR ORG ANX SYN MOOD DISORDER 01/29/2011 293.83 OR ORG ANX SYN MOOD DISORDER 01/29/2011 STEVE QUIROS APRN S 293.83 OR ORG ANX SYN MOOD DISORDER 01/29/2011 ISHAAN PACKAGING MANAGER, STEVE S 293.83 OR ORG ANX SYN MOOD DISORDER 01/29/2011 WHITAKER DO, ALEJANDRA K 293.83 OR ORG ANX SYN MOOD DISORDER 01/29/2011 WHITAKER DO, ALEJANDRA K 293.83 OR ORG ANX SYN MOOD DISORDER 01/29/2011 MARTINEZ MARU CHRISTINE JEWEL 293.83 OR ORG ANX SYN MOOD DISORDER 01/29/2011 ISHAAN PACKAGING MANAGER, STEVE S 293.83 OR ORG ANX SYN MOOD DISORDER 01/29/2011 ISHAAN BORRERON, STEVE S 293.83 OR ORG ANX SYN MOOD DISORDER 01/29/2011 WHITAKER DO, ALEJANDRA K 293.83 OR ORG ANX SYN MOOD DISORDER 01/29/2011 WHITAKER DO, ALEJANDRA K 293.83 OR ORG ANX SYN MOOD DISORDER 01/29/2011 ISHAAN MAHONEY, STEVE S 293.83 OR ORG ANX SYN MOOD DISORDER 01/29/2011 JUSTIN HEAD APRN 293.83 OR ORG ANX SYN MOOD DISORDER 01/29/2011 WHITAKER DO ALEJANDRA K 293.83 OR ORG ANX SYN MOOD DISORDER 01/29/2011 ISHAAN BORRERON, STEVE S 293.83 OR ORG ANX SYN MOOD DISORDER 01/29/2011 WHITAKER DO, ALEJANDRA K 293.83 OR ORG ANX SYN MOOD DISORDER 04/10/2011 WHITAKER DO ALEJANDRA K 293.89 OR ORG ANX SYN UNSPECIFIED TRANSIENT MENTAL DISORDER IN CONDITIONS CLASSIFIED ELSEWHERE 04/10/2011 293.89 OR ORG ANX SYN UNSPECIFIED TRANSIENT MENTAL DISORDER IN CONDITIONS CLASSIFIED ELSEWHERE 04/10/2011 293.89 OR ORG ANX SYN UNSPECIFIED TRANSIENT MENTAL DISORDER IN CONDITIONS CLASSIFIED ELSEWHERE 04/10/2011 WHITAKER DO ALEJANDRA K 293.89 OR ORG ANX SYN UNSPECIFIED TRANSIENT MENTAL DISORDER IN CONDITIONS CLASSIFIED ELSEWHERE 04/10/2011 293.89 OR ORG ANX SYN UNSPECIFIED TRANSIENT MENTAL DISORDER IN CONDITIONS CLASSIFIED ELSEWHERE 04/10/2011 293.89 OR ORG ANX SYN UNSPECIFIED TRANSIENT MENTAL DISORDER IN CONDITIONS CLASSIFIED ELSEWHERE 04/10/2011 ISHAAN MAHONEY, STEVE S 293.89 OR ORG ANX SYN UNSPECIFIED TRANSIENT MENTAL DISORDER IN CONDITIONS CLASSIFIED ELSEWHERE 04/10/2011 ISHAAN PACKAGING MANAGER, STEVE S 293.89 OR ORG ANX SYN UNSPECIFIED TRANSIENT MENTAL DISORDER IN CONDITIONS CLASSIFIED ELSEWHERE 04/10/2011 WHITAKER DO ALEJANDRA K 293.89 OR ORG ANX SYN UNSPECIFIED TRANSIENT MENTAL DISORDER IN CONDITIONS CLASSIFIED ELSEWHERE 04/10/2011 WHITAKER DO ALEJANDRA K 293.89 OR ORG ANX SYN UNSPECIFIED TRANSIENT MENTAL DISORDER IN CONDITIONS CLASSIFIED ELSEWHERE 04/10/2011 MICHELLE MARU CHRISTINE JEWEL 293.89 OR ORG ANX SYN UNSPECIFIED TRANSIENT MENTAL DISORDER IN CONDITIONS CLASSIFIED ELSEWHERE 04/10/2011 ISHAAN BORRERON, STEVE S 293.89 OR ORG ANX SYN UNSPECIFIED TRANSIENT MENTAL DISORDER IN CONDITIONS CLASSIFIED ELSEWHERE 04/10/2011 XAVIER QUIROS APRNNDA S 293.89 OR ORG ANX SYN UNSPECIFIED TRANSIENT MENTAL DISORDER IN CONDITIONS CLASSIFIED ELSEWHERE 04/10/2011 WHITAKER DO, ALEJANDRA K 293.89 OR ORG ANX SYN UNSPECIFIED TRANSIENT MENTAL DISORDER IN CONDITIONS CLASSIFIED ELSEWHERE 04/10/2011 WHITAKER DO, ALEJANDRA K 293.89 OR ORG ANX SYN UNSPECIFIED TRANSIENT MENTAL DISORDER IN CONDITIONS CLASSIFIED ELSEWHERE 04/10/2011 ISHAAN MAHONEY, STEVE S 293.89 OR ORG ANX SYN UNSPECIFIED TRANSIENT MENTAL DISORDER IN CONDITIONS CLASSIFIED ELSEWHERE 04/10/2011 JUSTIN HEAD APRN 293.89 OR ORG ANX SYN UNSPECIFIED TRANSIENT MENTAL DISORDER IN CONDITIONS CLASSIFIED ELSEWHERE 04/10/2011 WHITAKER DO ALEJANDRA K 293.89 OR ORG ANX SYN UNSPECIFIED TRANSIENT MENTAL DISORDER IN CONDITIONS CLASSIFIED ELSEWHERE 04/10/2011 XAVIER QUIROS APRNNDA S 293.89 OR ORG ANX SYN UNSPECIFIED TRANSIENT MENTAL DISORDER IN CONDITIONS CLASSIFIED ELSEWHERE 04/10/2011 WHITAKER DO ALEJANDRA K 293.89 OR ORG ANX SYN UNSPECIFIED TRANSIENT MENTAL DISORDER IN CONDITIONS CLASSIFIED ELSEWHERE 06/25/2011 SHERMAN DO ALEJANDRA K 443.0 RAYNAUD'S SYNDROME 06/25/2011 443.0 RAYNAUD'S SYNDROME 06/25/2011 443.0 RAYNAUD'S SYNDROME 06/25/2011 WHITAKER DOMIRIAMA K 443.0 RAYNAUD'S SYNDROME 06/25/2011 443.0 RAYNAUD'S SYNDROME 06/25/2011 443.0 RAYNAUD'S SYNDROME 06/25/2011 STEVE QUIROS APRN S 443.0 RAYNAUD'S SYNDROME 06/25/2011 STEVE QUIROS APRN S 443.0 RAYNAUD'S SYNDROME 06/25/2011 ALEJANDRA WHITAKER DO K 443.0 RAYNAUD'S SYNDROME 06/25/2011 MIRIAM WHITAKER DOA K 443.0 RAYNAUD'S SYNDROME 06/25/2011 MICHELLE PACKAGING MANAGER, CHRISTINE JEWEL 443.0 RAYNAUD'S SYNDROME 06/25/2011 ISHAAN PACKAGING MANAGER STEVE S 443.0 RAYNAUD'S SYNDROME 06/25/2011 ISHAAN PACKAGING MANAGER, STEVE S 443.0 RAYNAUD'S SYNDROME 06/25/2011 MIRIAM WHITAKER DOA K 443.0 RAYNAUD'S SYNDROME 06/25/2011 MIRIAM WHITAKER DOA K 443.0 RAYNAUD'S SYNDROME 06/25/2011 ISHAAN PACKAGING MANAGERXAVIERSTEVE S 443.0 RAYNAUD'S SYNDROME 06/25/2011 JUSTIN HEAD APRN 443.0 RAYNAUD'S SYNDROME 06/25/2011 MIRIAM WHITAKER DOA K 443.0 RAYNAUD'S SYNDROME 06/25/2011 ISHAAN MAHONEY, STEVE S 443.0 RAYNAUD'S SYNDROME 06/25/2011 MIRIAM WHITAKER DOA K 443.0 RAYNAUD'S SYNDROME 07/24/2011 ALEJANDRA WHITAKER DO K 737.30 SCOLIOSIS (AND KYPHOSCOLIOSIS) IDIOPATHIC 07/24/2011 737.30 SCOLIOSIS ( AND KYPHOSCOLIOSIS) IDIOPATHIC 07/24/2011 737.30 SCOLIOSIS ( AND KYPHOSCOLIOSIS) IDIOPATHIC 07/24/2011 ALEJANDRA WHITAKER DO K 737.30 SCOLIOSIS (AND KYPHOSCOLIOSIS) IDIOPATHIC 07/24/2011 737.30 SCOLIOSIS ( AND KYPHOSCOLIOSIS) IDIOPATHIC 07/24/2011 737.30 SCOLIOSIS ( AND KYPHOSCOLIOSIS) IDIOPATHIC 07/24/2011 XAVIER QUIROS APRNNDA S 737.30 SCOLIOSIS (AND KYPHOSCOLIOSIS) IDIOPATHIC 07/24/2011 ISHAAN BORRERON, STEVE S 737.30 SCOLIOSIS (AND KYPHOSCOLIOSIS) IDIOPATHIC 07/24/2011 ALEJANDRA WHITAKER DO K 737.30 SCOLIOSIS (AND KYPHOSCOLIOSIS) IDIOPATHIC 07/24/2011 ALEJANDRA WHITAKER DO K 737.30 SCOLIOSIS (AND KYPHOSCOLIOSIS) IDIOPATHIC 07/24/2011 CHRISTINE MARTINEZ APRN 737.30 SCOLIOSIS (AND KYPHOSCOLIOSIS) IDIOPATHIC 07/24/2011 ISHAAN MAHONEY STEVE S 737.30 SCOLIOSIS (AND KYPHOSCOLIOSIS) IDIOPATHIC 07/24/2011 ISHAAN PACKAGING MANAGER, STEVE S 737.30 SCOLIOSIS (AND KYPHOSCOLIOSIS) IDIOPATHIC 07/24/2011 WHITAKER DO, ALEJANDRA K 737.30 SCOLIOSIS (AND KYPHOSCOLIOSIS) IDIOPATHIC 07/24/2011 WHITAKER DO, ALEJANDRA K 737.30 SCOLIOSIS (AND KYPHOSCOLIOSIS) IDIOPATHIC 07/24/2011 ISHAAN PACKAGING MANAGER STEVE S 737.30 SCOLIOSIS (AND KYPHOSCOLIOSIS) IDIOPATHIC 07/24/2011 JUSTIN HEAD APRN 737.30 SCOLIOSIS (AND KYPHOSCOLIOSIS) IDIOPATHIC 07/24/2011 WHITAKER DO, ALEJANDRA K 737.30 SCOLIOSIS (AND KYPHOSCOLIOSIS) IDIOPATHIC 07/24/2011 ISHAAN PACKAGING MANAGER, STEVE S 737.30 SCOLIOSIS (AND KYPHOSCOLIOSIS) IDIOPATHIC 07/24/2011 WHITAKER DO, ALEJANDRA K 737.30 SCOLIOSIS (AND KYPHOSCOLIOSIS) IDIOPATHIC 07/31/2011 WHITAKER DO ALEJANDRA K 599.70 HEMATURIA UNSPECIFIED 07/31/2011 599.70 HEMATURIA UNSPECIFIED 07/31/2011 599.70 HEMATURIA UNSPECIFIED 07/31/2011 WHITAKER DO, ALEJANDRA K 599.70 HEMATURIA UNSPECIFIED 07/31/2011 599.70 HEMATURIA UNSPECIFIED 07/31/2011 599.70 HEMATURIA UNSPECIFIED 07/31/2011 ISHAAN PACKAGING MANAGER, STEVE S 599.70 HEMATURIA UNSPECIFIED 07/31/2011 ISHAAN PACKAGING MANAGER, STEVE S 599.70 HEMATURIA UNSPECIFIED 07/31/2011 WHITAKER DO, ALEJANDRA K 599.70 HEMATURIA UNSPECIFIED 07/31/2011 WHITAKER DO, ALEJANDRA K 599.70 HEMATURIA UNSPECIFIED 07/31/2011 CHRISTINE MARTINEZ APRN 599.70 HEMATURIA UNSPECIFIED 07/31/2011 ISHAAN PACKAGING MANAGER, STEVE S 599.70 HEMATURIA UNSPECIFIED 07/31/2011 ISHAAN PACKAGING MANAGER, STEVE S 599.70 HEMATURIA UNSPECIFIED 07/31/2011 WHITAKER DO, ALEJANDRA K 599.70 HEMATURIA UNSPECIFIED 07/31/2011 WHITAKER DO, ALEJANDRA K 599.70 HEMATURIA UNSPECIFIED 07/31/2011 ISHAAN PACKAGING MANAGER, STEVE S 599.70 HEMATURIA UNSPECIFIED 07/31/2011 JUSTIN HEAD APRN 599.70 HEMATURIA UNSPECIFIED 07/31/2011 WHITAKER DO, ALEJANDRA K 599.70 HEMATURIA UNSPECIFIED 07/31/2011 MARCO QUIROS APRNA S 599.70 HEMATURIA UNSPECIFIED 07/31/2011 WHITAKER DO ALEJANDRA K 599.70 HEMATURIA UNSPECIFIED 08/14/2011 WHITAKER DO, ALEJANDRA K 293.81 OR ORG ANX SYN WITH DELUSIONS IN CONDITIONS CLASSIFED ELSEWHERE 08/14/2011 293.81 OR ORG ANX SYN WITH DELUSIONS IN CONDITIONS CLASSIFED ELSEWHERE 08/14/2011 293.81 OR ORG ANX SYN WITH DELUSIONS IN CONDITIONS CLASSIFED ELSEWHERE 08/14/2011 WHITAKER DO, ALEJANDRA K 293.81 OR ORG ANX SYN WITH DELUSIONS IN CONDITIONS CLASSIFED ELSEWHERE 08/14/2011 293.81 OR ORG ANX SYN WITH DELUSIONS IN CONDITIONS CLASSIFED ELSEWHERE 08/14/2011 293.81 OR ORG ANX SYN WITH DELUSIONS IN CONDITIONS CLASSIFED ELSEWHERE 08/14/2011 XAVIER QUIROS APRNNDA S 293.81 OR ORG ANX SYN WITH DELUSIONS IN CONDITIONS CLASSIFED ELSEWHERE 08/14/2011 XAVIER QUIROS APRNNDA S 293.81 OR ORG ANX SYN WITH DELUSIONS IN CONDITIONS CLASSIFED ELSEWHERE 08/14/2011 WHITAKER DO ALEJANDRA K 293.81 OR ORG ANX SYN WITH DELUSIONS IN CONDITIONS CLASSIFED ELSEWHERE 08/14/2011 SHERMAN NAIR ALEJANDRA K 293.81 OR ORG ANX SYN WITH DELUSIONS IN CONDITIONS CLASSIFED ELSEWHERE 08/14/2011 CHRISTINE MARTINEZ APRN 293.81 OR ORG ANX SYN WITH DELUSIONS IN CONDITIONS CLASSIFED ELSEWHERE 08/14/2011 XAVIER QUIROS APRNNDA S 293.81 OR ORG ANX SYN WITH DELUSIONS IN CONDITIONS CLASSIFED ELSEWHERE 08/14/2011 ISHAAN MAHONEY STEVE S 293.81 OR ORG ANX SYN WITH DELUSIONS IN CONDITIONS CLASSIFED ELSEWHERE 08/14/2011 WHITAKER DO ALEJANDRA K 293.81 OR ORG ANX SYN WITH DELUSIONS IN CONDITIONS CLASSIFED ELSEWHERE 08/14/2011 WHITAKER DO ALEJANDRA K 293.81 OR ORG ANX SYN WITH DELUSIONS IN CONDITIONS CLASSIFED ELSEWHERE 08/14/2011 XAVIER QUIROS APRNNDA S 293.81 OR ORG ANX SYN WITH DELUSIONS IN CONDITIONS CLASSIFED ELSEWHERE 08/14/2011 JUSTIN HEAD APRN 293.81 OR ORG ANX SYN WITH DELUSIONS IN CONDITIONS CLASSIFED ELSEWHERE 08/14/2011 WHITAKER DOMIRIAMA K 293.81 OR ORG ANX SYN WITH DELUSIONS IN CONDITIONS CLASSIFED ELSEWHERE 08/14/2011 STEVE QUIROS APRN S 293.81 OR ORG ANX SYN WITH DELUSIONS IN CONDITIONS CLASSIFED ELSEWHERE 08/14/2011 WHITAKER DOMIRIAMA K 293.81 OR ORG ANX SYN WITH DELUSIONS IN CONDITIONS CLASSIFED ELSEWHERE 10/16/2011 MIRIAM WHITAKER DOA K V72.31 Cinnamon Grinder Exam, Routine 10/16/2011 MIRIAM WHITAKER DOA K V76.10 Visit For: Screening Exam Malignant Neoplasm Breast 10/16/2011 V72.31 Cinnamon Grinder Exam, Routine 10/16/2011 V76.10 Visit For: Screening Exam Malignant Neoplasm Breast 10/16/2011 V72.31 Cinnamon Grinder Exam, Routine 10/16/2011 V76.10 Visit For: Screening Exam Malignant Neoplasm Breast 10/16/2011 ALEJANDRA WHITAKER DO V72.31 Cinnamon Grinder Exam, Routine 10/16/2011 ALEJANDRA WHITAKER DO K V76.10 Visit For: Screening Exam Malignant Neoplasm Breast 10/16/2011 V72.31 Cinnamon Grinder Exam, Routine 10/16/2011 V76.10 Visit For: Screening Exam Malignant Neoplasm Breast 10/16/2011 V72.31 Cinnamon Grinder Exam, Routine 10/16/2011 V76.10 Visit For: Screening Exam Malignant Neoplasm Breast 10/16/2011 STEVE QUIROS APRN S V72.31 Cinnamon Grinder Exam, Routine 10/16/2011 XAVIER QUIROS APRNNDA S V76.10 Visit For: Screening Exam Malignant Neoplasm Breast 10/16/2011 XAVIER QUIROS APRNNDA S V72.31 Cinnamon Grinder Exam, Routine 10/16/2011 XAVIER QUIROS APRNNDA S V76.10 Visit For: Screening Exam Malignant Neoplasm Breast 10/16/2011 MIRIAM WHITAKER DOA K V72.31 Cinnamon Grinder Exam, Routine 10/16/2011 ALEJANDRA WHITAKER DO K V76.10 Visit For: Screening Exam Malignant Neoplasm Breast 10/16/2011 MIRIAM WHITAKER DOA K V72.31 Cinnamon Grinder Exam, Routine 10/16/2011 MIRIAM WHITAKER DOA K V76.10 Visit For: Screening Exam Malignant Neoplasm Breast 10/16/2011 CHRISTINE MARTINEZ APRN V72.31 Cinnamon Grinder Exam, Routine 10/16/2011 MICHELLE MARU CHRISTINE HOLLOWAY V76.10 Visit For: Screening Exam Malignant Neoplasm Breast 10/16/2011 XAVIER QUIROS APRNNDA S V72.31 Cinnamon Grinder Exam, Routine 10/16/2011 ISHAAN MAHONEY STEVE S V76.10 Visit For: Screening Exam Malignant Neoplasm Breast 10/16/2011 ISHAAN MAHONEY STEVE S V72.31 Cinnamon Grinder Exam, Routine 10/16/2011 XAVIER QUIROS APRNNDA S V76.10 Visit For: Screening Exam Malignant Neoplasm Breast 10/16/2011 ALEJANDRA WHITAKER DO K V72.31 Cinnamon Grinder Exam, Routine 10/16/2011 ALEJANDRA WHITAKER DO K V76.10 Visit For: Screening Exam Malignant Neoplasm Breast 10/16/2011 MIRIAM WHITAKER DOA K V72.31 Cinnamon Grinder Exam, Routine 10/16/2011 ALEJANDRA WHITAKER DO K V76.10 Visit For: Screening Exam Malignant Neoplasm Breast 10/16/2011 XAVIER QUIROS APRNNDA S V72.31 Cinnamon Grinder Exam, Routine 10/16/2011 XAVIER QUIROS APRNNDA S V76.10 Visit For: Screening Exam Malignant Neoplasm Breast 10/16/2011 NOÉ HEAD APRNA J V72.31 Cinnamon Grinder Exam, Routine 10/16/2011 JUSTIN HEAD APRN J V76.10 Visit For: Screening Exam Malignant Neoplasm Breast 10/16/2011 ALEJANDRA WHITAKER DO K V72.31 Cinnamon Grinder Exam, Routine 10/16/2011 ALEJANDRA WHITAKER DO K V76.10 Visit For: Screening Exam Malignant Neoplasm Breast 10/16/2011 XAVIER QUIROS APRNNDA S V72.31 Cinnamon Grinder Exam, Routine 10/16/2011 XAVIER QUIROS APRNNDA S V76.10 Visit For: Screening Exam Malignant Neoplasm Breast 10/16/2011 MIRIAM WHITAKER DOA K V72.31 Cinnamon Grinder Exam, Routine 10/16/2011 ALEJANDRA WHITAKER DO K V76.10 Visit For: Screening Exam Malignant Neoplasm Breast 05/05/2012 ALEJANDRA WHITAKER DO V25.49 Contraception Surveillance (repeat Rx) 05/05/2012 V25.49 Contraception Surveillance (repeat Rx) 05/05/2012 V25.49 Contraception Surveillance (repeat Rx) 05/05/2012 ALEJANDRA WHITAKER DO V25.49 Contraception Surveillance (repeat Rx) 05/05/2012 V25.49 Contraception Surveillance (repeat Rx) 05/05/2012 V25.49 Contraception Surveillance (repeat Rx) 05/05/2012 STEVE QUIROS APRN S V25.49 Contraception Surveillance (repeat Rx) 05/05/2012 MARCO QUIROS APRNA S V25.49 Contraception Surveillance (repeat Rx) 05/05/2012 ALEJANDRA WHITAKER DO V25.49 Contraception Surveillance (repeat Rx) 05/05/2012 ALEJANDRA WHITAKER DO V25.49 Contraception Surveillance (repeat Rx) 05/05/2012 CHRISTINE MARTINEZ APRN V25.49 Contraception Surveillance (repeat Rx) 05/05/2012 STEVE QUIROS APRN S V25.49 Contraception Surveillance (repeat Rx) 05/05/2012 STEVE QUIROS APRN S V25.49 Contraception Surveillance (repeat Rx) 05/05/2012 ALEJANDRA WHITAKER DO V25.49 Contraception Surveillance (repeat Rx) 05/05/2012 ALEJANDRA WHITAKER DO V25.49 Contraception Surveillance (repeat Rx) 05/05/2012 MARCO QUIROS APRNA S V25.49 Contraception Surveillance (repeat Rx) 05/05/2012 JUSTIN HEAD APRN V25.49 Contraception Surveillance (repeat Rx) 05/05/2012 ALEJANDRA WHITAKER DO K V25.49 Contraception Surveillance (repeat Rx) 05/05/2012 MARCO QUIROS APRNA S V25.49 Contraception Surveillance (repeat Rx) 05/05/2012 ALEJANDRA WHITAKER DO V25.49 Contraception Surveillance (repeat Rx) 06/03/2012 ALEJANDRA WHITAKER DO V04.81 FLU DX (MEDICARE ONLY) 06/03/2012 V04.81 FLU DX ( MEDICARE ONLY) 06/03/2012 V04.81 FLU DX ( MEDICARE ONLY) 06/03/2012 ALEJANDRA WHITAKER DO V04.81 FLU DX (MEDICARE ONLY) 06/03/2012 V04.81 FLU DX ( MEDICARE ONLY) 06/03/2012 V04.81 FLU DX ( MEDICARE ONLY) 06/03/2012 STEVE QUIROS APRN V04.81 FLU DX (MEDICARE ONLY) 06/03/2012 XAVIER QUIROS APRNNDA S V04.81 FLU DX (MEDICARE ONLY) 06/03/2012 MIRIAM WHITAKER DOA K V04.81 FLU DX (MEDICARE ONLY) 06/03/2012 MIRIAM WHITAKER DOA K V04.81 FLU DX (MEDICARE ONLY) 06/03/2012 CHRISTINE MARTINEZ APRN V04.81 FLU DX (MEDICARE ONLY) 06/03/2012 ISHAAN MAHONEY STEVE S V04.81 FLU DX (MEDICARE ONLY) 06/03/2012 ISHAAN MAHONEY STEVE S V04.81 FLU DX (MEDICARE ONLY) 06/03/2012 MIRIAM WHITAKER DOA K V04.81 FLU DX (MEDICARE ONLY) 06/03/2012 MIRIAM WHITAKER DOA K V04.81 FLU DX (MEDICARE ONLY) 06/03/2012 XAVIER QUIROS APRNNDA S V04.81 FLU DX (MEDICARE ONLY) 06/03/2012 JUSTIN HEAD APRN V04.81 FLU DX (MEDICARE ONLY) 06/03/2012 MIRIAM WHITAKER DOA K V04.81 FLU DX (MEDICARE ONLY) 06/03/2012 ISHAAN MAHONEY STEVE S V04.81 FLU DX (MEDICARE ONLY) 06/03/2012 MIRIAM WHITAKER DOA K V04.81 FLU DX (MEDICARE ONLY) 07/31/2012 ALEJANDRA WHITAKER DO K V25.49 CONTRACEPTION SURVEILLANCE (REPEAT RX) 07/31/2012 V25.49 CONTRACEPTION SURVEILLANCE (REPEAT RX) 07/31/2012 V25.49 CONTRACEPTION SURVEILLANCE (REPEAT RX) 07/31/2012 ALEJANDRA WHITAKER DO V25.49 CONTRACEPTION SURVEILLANCE (REPEAT RX) 07/31/2012 V25.49 CONTRACEPTION SURVEILLANCE (REPEAT RX) 07/31/2012 V25.49 CONTRACEPTION SURVEILLANCE (REPEAT RX) 07/31/2012 MARCO QUIROS APRNA S V25.49 CONTRACEPTION SURVEILLANCE (REPEAT RX) 07/31/2012 STEVE QUIROS APRN S V25.49 CONTRACEPTION SURVEILLANCE (REPEAT RX) 07/31/2012 ALEJANDRA WHITAKER DO V25.49 CONTRACEPTION SURVEILLANCE (REPEAT RX) 07/31/2012 ALEJANDRA WHITAKER DO K V25.49 CONTRACEPTION SURVEILLANCE (REPEAT RX) 07/31/2012 CHRISTINE MARTINEZ APRN V25.49 CONTRACEPTION SURVEILLANCE (REPEAT RX) 07/31/2012 MARCO QUIROS APRNA S V25.49 CONTRACEPTION SURVEILLANCE (REPEAT RX) 07/31/2012 STEVE QUIROS APRN S V25.49 CONTRACEPTION SURVEILLANCE (REPEAT RX) 07/31/2012 ALEJANDRA WHITAKER DO V25.49 CONTRACEPTION SURVEILLANCE (REPEAT RX) 07/31/2012 ALEJANDRA WHITAKER DO K V25.49 CONTRACEPTION SURVEILLANCE (REPEAT RX) 07/31/2012 STEVE QUIROS APRN S V25.49 CONTRACEPTION SURVEILLANCE (REPEAT RX) 07/31/2012 JUSTIN HEAD APRN V25.49 CONTRACEPTION SURVEILLANCE (REPEAT RX) 07/31/2012 ALEJANDRA WHITAKER DO K V25.49 CONTRACEPTION SURVEILLANCE (REPEAT RX) 07/31/2012 STEVE QUIROS APRN S V25.49 CONTRACEPTION SURVEILLANCE (REPEAT RX) 07/31/2012 ALEJANDRA WHITAKER DO K V25.49 CONTRACEPTION SURVEILLANCE (REPEAT RX) 08/21/2012 ALEJANDRA WHITAKER DO K 788.30 URINARY INCONTINENCE UNSPECIFIED 08/21/2012 788.30 URINARY INCONTINENCE UNSPECIFIED 08/21/2012 788.30 URINARY INCONTINENCE UNSPECIFIED 08/21/2012 MIRIAM WHITAKER DOA K 788.30 URINARY INCONTINENCE UNSPECIFIED 08/21/2012 788.30 URINARY INCONTINENCE UNSPECIFIED 08/21/2012 788.30 URINARY INCONTINENCE UNSPECIFIED 08/21/2012 MARCO QUIROS APRNA S 788.30 URINARY INCONTINENCE UNSPECIFIED 08/21/2012 MARCO QUIROS APRNA S 788.30 URINARY INCONTINENCE UNSPECIFIED 08/21/2012 MIRIAM WHITAKER DOA K 788.30 URINARY INCONTINENCE UNSPECIFIED 08/21/2012 MIRIAM WHITAKER DOA K 788.30 URINARY INCONTINENCE UNSPECIFIED 08/21/2012 CHRISTINE MARTINEZ APRN 788.30 URINARY INCONTINENCE UNSPECIFIED 08/21/2012 MARCO QUIROS APRNA S 788.30 URINARY INCONTINENCE UNSPECIFIED 08/21/2012 XAVIER QUIROS APRNNDA S 788.30 URINARY INCONTINENCE UNSPECIFIED 08/21/2012 MIRIAM WHITAKER DOA K 788.30 URINARY INCONTINENCE UNSPECIFIED 08/21/2012 MIRIAM WHITAKER DOA K 788.30 URINARY INCONTINENCE UNSPECIFIED 08/21/2012 MARCO QUIROS APRNA S 788.30 URINARY INCONTINENCE UNSPECIFIED 08/21/2012 JUSTIN HEAD APRN 788.30 URINARY INCONTINENCE UNSPECIFIED 08/21/2012 WHITAKER DO ALEJANDRA K 788.30 URINARY INCONTINENCE UNSPECIFIED 08/21/2012 MARCO QUIROS APRNA S 788.30 URINARY INCONTINENCE UNSPECIFIED 08/21/2012 WHITAKER DO ALEJANDRA K 788.30 URINARY INCONTINENCE UNSPECIFIED 07/02/2013 XAVIER QUIROS APRNNDA S V70.0 EXAM - ROUTINE H&P 07/02/2013 MARCO QUIROS APRNA S V70.0 EXAM - ROUTINE H&P 07/02/2013 WHITAKER DO ALEJANDRA K V70.0 EXAM - ROUTINE H&P 07/02/2013 WHITAKER DO ALEJANDRA K V70.0 EXAM - ROUTINE H&P 07/02/2013 CHRISTINE MARTINEZ APRN V70.0 EXAM - ROUTINE H&P 07/02/2013 MARCO QUIROS APRNA S V70.0 EXAM - ROUTINE H&P 07/02/2013 MARCO QUIROS APRNA S V70.0 EXAM - ROUTINE H&P 07/02/2013 WHITAKER DO ALEJANDRA K V70.0 EXAM - ROUTINE H&P 07/02/2013 WHITAKER DO ALEJANDRA K V70.0 EXAM - ROUTINE H&P 07/02/2013 MARCO QUIROS APRNA S V70.0 EXAM - ROUTINE H&P 07/02/2013 JUSTIN HEAD APRN V70.0 EXAM - ROUTINE H&P 07/02/2013 WHITAKER DO ALEJANDRA K V70.0 EXAM - ROUTINE H&P 07/02/2013 XAVIER QUIROS APRNNDA S V70.0 EXAM - ROUTINE H&P 07/02/2013 WHITAKER DO ALEJANDRA K V70.0 EXAM - ROUTINE H&P 10/22/2013 WHITAKER DO ALEJANDRA K V25.9 CONTRACEPTION MANAGEMENT 10/22/2013 CHRISTINE MARTINEZ APRN V25.9 CONTRACEPTION MANAGEMENT 10/22/2013 MARCO QUIROS APRNA S V25.9 CONTRACEPTION MANAGEMENT 10/22/2013 MARCO QUIROS APRNA S V25.9 CONTRACEPTION MANAGEMENT 10/22/2013 ALEJANDRA WHITAKER DO K V25.9 CONTRACEPTION MANAGEMENT 10/22/2013 WHITAKER DOMIRIAMA K V25.9 CONTRACEPTION MANAGEMENT 10/22/2013 STEVE QUIROS APRN S V25.9 CONTRACEPTION MANAGEMENT 10/22/2013 JUSTIN HEAD APRN V25.9 CONTRACEPTION MANAGEMENT 10/22/2013 WHITAKER DOMIRIAMA K V25.9 CONTRACEPTION MANAGEMENT 10/22/2013 MARCO QUIROS APRNA S V25.9 CONTRACEPTION MANAGEMENT 10/22/2013 WHITAKER DOMIRIAMA K V25.9 CONTRACEPTION MANAGEMENT 01/05/2014 MARCO QUIROS APRNA S 788.1 DYSURIA 01/05/2014 MARCO QUIROS APRNA S 788.1 DYSURIA 01/05/2014 WHITAKER DO, ALEJANDRA K 788.1 DYSURIA 01/05/2014 WHITAKER DO, ALEJANDRA K 788.1 DYSURIA 01/05/2014 STEVE QUIROS APRN S 788.1 DYSURIA 01/05/2014 JUSTIN HEAD APRN 788.1 DYSURIA 01/05/2014 WHITAKER DO, ALEJANDRA K 788.1 DYSURIA 01/05/2014 MARCO QUIROS APRNA S 788.1 DYSURIA 01/05/2014 WHITAKER DO, ALEJANDRA K 788.1 DYSURIA 04/27/2014 WHITAKER DOMIRIAMA K V76.10 BREAST CANCER SCREENING 04/27/2014 WHITAKER DOMIRIAMA K V76.10 BREAST CANCER SCREENING 04/27/2014 STEVE QUIROS APRN S V76.10 BREAST CANCER SCREENING 04/27/2014 JUSTIN HEAD APRN V76.10 BREAST CANCER SCREENING 04/27/2014 WHITAKER DOMIRIAMA K V76.10 BREAST CANCER SCREENING 04/27/2014 STEVE QUIROS APRN S V76.10 BREAST CANCER SCREENING 04/27/2014 WHITAKER DOMIRIAMA K V76.10 BREAST CANCER SCREENING 08/12/2014 STEVE QUIROS APRN V04.81 FLU SHOT 08/12/2014 JUSTIN HEAD APRN V04.81 FLU SHOT 08/12/2014 WHITAKER ALEJANDRA NAIR K V04.81 FLU SHOT 08/12/2014 STEVE QUIROS APRN V04.81 FLU SHOT 08/12/2014 ALEJANDRA WHITAKER DO K V04.81 FLU SHOT 10/12/2014 ALEJANDRA WHITAKER DO K V25.9 CONTRACEPTION MANAGEMENT 10/12/2014 STEVE QUIROS APRN S V25.9 CONTRACEPTION MANAGEMENT 10/12/2014 ALEJANDRA WHITAKER DO K V25.9 CONTRACEPTION MANAGEMENT 11/04/2014 STEVE QUIROS APRN 529.6 GLOSSODYNIA 11/04/2014 MIRIAM WHITAKER DOA K 529.6 GLOSSODYNIA 03/17/2018 STEVE QUIROS Ot V76.12 OTH SCREEN MAMMO-MALIGN NEOPLASM OF [place] 03/18/2018 STEVE QUIROS SALES PROMOTION MANAGER Ot M41.85 OTHER FORMS OF SCOLIOSIS, THORACOLUMBAR 04/07/2018 STEVE QUIROS Ot M41.85 OTHER FORMS OF SCOLIOSIS, THORACOLUMBAR 04/16/2018 STEVE QUIROSP Ot M41.85 OTHER FORMS OF SCOLIOSIS, THORACOLUMBAR Procedures Code [place] [address] THERAPUTIC INJ SQ/IM 07/31/2012 J1055 DEPO-PROVERA (PATIENTS OWN) 07/31/2012 72354 UA W/ CULTURE IF INDICATED 08/21/2012 47849 CULTURE URINE 08/24/2012 16398 THERAPUTIC INJ SQ/IM 10/29/2012 J1055 DEPO-PROVERA (PATIENTS OWN) 10/29/2012 J1050 DEPO PROVERA (PATIENTS OWN) 01/28/2013 06540 THERAPUTIC INJ SQ/IM 01/28/2013 27494 CMP 07/06/2013 70030 LIPID PANEL 07/06/2013 66248 TSH 07/06/2013 87685 CBC 07/06/2013 90963 THERAPUTIC INJ SQ/IM 07/27/2013 J1050 DEPO PROVERA (PATIENTS OWN) 07/27/2013 66396 THERAPUTIC INJ SQ/IM 10/22/2013 J1050 DEPO PROVERA 10/22/2013 74884 UA LONG DIP 01/05/2014 31195 UA LONG DIP 01/05/2014 19754 CULTURE URINE 01/06/2014 74458 THERAPUTIC INJ SQ/IM 01/15/2014 J1050 DEPO PROVERA (PATIENTS OWN) 01/15/2014 J1050 DEPO PROVERA 04/21/2014 91616 THERAPUTIC INJ SQ/IM 04/21/2014 06479 MAMMOGRAM, SCREENING 04/22/2014 45393 THERAPUTIC INJ SQ/IM 07/23/2014 G0008 FLU ADMINISTRATION ( MEDICARE ONLY) 08/12/2014 63247 ROUTINE VENIPUNCTURE 08/18/2014 4258479 GFR CALC (RESULT ONLY) 08/18/2014 93853 CMP 08/18/2014 18086 LIPID PANEL 08/18/2014 70819 TSH 08/18/2014 42079 CBC 08/18/2014 J1050 DEPO PROVERA 10/12/2014 82533 THERAPUTIC INJ SQ/IM 10/12/2014 50695 THERAPUTIC INJ SQ/IM 12/29/2014 Results Test Result Range CBC With Differential/Platelet - 01/29/17 08:28 WBC 6.6 x10E3/uL 3.4-10.8 RBC 4.36 x10E6/uL 3.77-5.28 Hemoglobin 14.2 g/dL 11.1-15.9 Hematocrit 43.4 % 34.0-46.6 MCV 100 fL 79-97 MCH 32.6 pg 26.6-33.0 MCHC 32.7 g/dL 31.5-35.7 RDW 13.7 % 12.3-15.4 Platelets 280 x10E3/uL 150-379 Neutrophils 61 % Lymphs 31 % Monocytes 6 % Eos 2 % Basos 0 % Neutrophils (Absolute) 4.0 x10E3/uL 1.4-7.0 Lymphs (Absolute) 2.0 x10E3/uL 0.7-3.1 Monocytes(Absolute) 0.4 x10E3/uL 0.1-0.9 Eos (Absolute) 0.2 x10E3/uL 0.0-0.4 Baso (Absolute) 0.0 x10E3/uL 0.0-0.2 Immature Granulocytes 0 % Immature Grans (Abs) 0.0 x10E3/uL 0.0-0.1 Comp. Metabolic Panel (14) - 01/29/17 08:28 Glucose, Serum 79 mg/dL 65-99 BUN 13 mg/dL 8-27 Creatinine, Serum 0.72 mg/dL 0.57-1.00 eGFR If NonAfricn Am 90 mL/min/1.73 >59 eGFR If Africn Am 104 mL/min/1.73 >59 BUN/Creatinine Ratio 18 12-28 Sodium, Serum 151 mmol/L 134-144 Potassium, Serum 4.9 mmol/L 3.5-5.2 Chloride, Serum 117 mmol/L 96-106 Carbon Dioxide, Total 23 mmol/L 18-29 Calcium, Serum 10.4 mg/dL 8.7-10.3 Protein, Total, Serum 6.7 g/dL 6.0-8.5 Albumin, Serum 4.0 g/dL 3.6-4.8 Globulin, Total 2.7 g/dL 1.5-4.5 A/G Ratio 1.5 1.2-2.2 Bilirubin, Total 0.3 mg/dL 0.0-1.2 Alkaline Phosphatase, S 95 IU/L 39-117 AST (SGOT) 14 IU/L 0-40 ALT (SGPT) 10 IU/L 0-32 Lipid Panel - 01/29/17 08:28 Cholesterol, Total 160 mg/dL 100-199 Triglycerides 98 mg/dL 0-149 HDL Cholesterol 45 mg/dL >39 VLDL Cholesterol Law 20 mg/dL 5-40 LDL Cholesterol Calc 95 mg/dL 0-99 Encounters ACCT No. Visit Date/Time Discharge Status Pt. Type Provider Facility Loc./Unit Complaint [id number] 12/29/2014 11:24:00 12/29/2014 23:59:59 [facility] Outpatient ALEJANDRA WHITAKER DO [id number] 11/04/2014 12:46:00 11/04/2014 23:59:59 [facility] Outpatient STEVE QUIROS APRN [id number] 10/12/2014 13:41:00 10/12/2014 23:59:59 [facility] Outpatient ALEJANDRA WHITAKER DO [id number] 09/30/2014 08:29:00 09/30/2014 23:59:59 [facility] Outpatient JUSTIN HEAD APRN [id number] 08/18/2014 08:07:00 08/18/2014 23:59:59 [facility] Outpatient STEVE QUIROS APRN [id number] 07/23/2014 14:57:00 07/23/2014 23:59:59 C[facility] Outpatient ALEJANDRA WHITAKER DO [id number] 04/21/2014 15:03:00 04/21/2014 23:59:59 CLS Outpatient ALEJANDRA WHITAKER DO [id number] 01/15/2014 13:58:00 01/15/2014 23:59:59 CLS Outpatient STEVE QUIROS APRN [id number] 01/05/2014 08:51:00 01/05/2014 23:59:59 CLS Outpatient ISHAAN PACKAGING MANAGERSTEVE Leopoldo [id number] 12/17/2013 10:30:00 12/17/2013 23:59:59 CLS Outpatient CHRISTINE MARTINEZ APRN [id number] 10/22/2013 15:31:00 10/22/2013 23:59:59 CLS Outpatient ALEJANDRA WHITAKER DO Gaetano [id number] 07/27/2013 15:34:00 07/27/2013 23:59:59 CLS Outpatient ISHAAN PACKAGING MANAGERMARCOVangie Mina [id number] 07/02/2013 12:57:00 07/02/2013 23:59:59 CLS Outpatient ALEJANDRA WHITAKER DO Gaetano [id number] 07/02/2013 12:57:00 07/02/2013 23:59:59 CLS Outpatient ISHAAN PACKAGING MANAGERSTEVE Leopoldo [id number] 10/29/2012 15:28:00 10/29/2012 23:59:59 CLS Outpatient ALEJANDRA WHITAKER DO Gaetano [id number] 10/22/2012 13:28:00 10/22/2012 23:59:59 CLS Outpatient [id number] 08/21/2012 15:36:00 08/21/2012 23:59:59 CLS Outpatient [id number] 07/31/2012 15:18:00 07/31/2012 23:59:59 CLS Outpatient ALEJANDRA WHITAKER DO [id number] 04/27/2013 15:23:00 Document Registration [id number] 01/28/2013 15:32:00 Document Registration [id number] 01/30/2017 08:45:00 Document Registration [id number] 08/23/2018 09:15:00 08/23/2018 23:59:59 CLS Outpatient ISHAAN MAHONEYSTEVE Leopoldo [facility] [id number] 03/17/2018 16:08:00 03/17/2018 23:59:59 CLS Outpatient ISHAANSTEVE BISWAS [facility] RAD M41.9 [id number] 05/21/2014 10:23:00 05/21/2014 23:59:59 [facility] Outpatient STEVE QUIROS [facility] RAD SCREENING [id number] 03/17/2018 16:08:00 Document Registration
--- NOTE | 2018-11-03 13:30 | ED Upper Extremity ---
General Stated Complaint: FINGER INJ Source: patient Exam Limitations: no limitations History of Present Illness Date Seen by Provider: Nov 03, 2018 Time Seen by Provider: 13:28 Initial Comments To ER with reports of right ring finger injury after being shut in a door earlier today. Patient is mentally handicapped. Onset: this morning Severity: moderate Pain/Injury Location: right 4th finger Modifying Factors: Worse With Movement Allergies and Home Medications Allergies Uncoded Allergies: TB SKIN TEST (Allergy, 02/28/11) Home Medications Buspirone Hcl 10 Mg Tablet, 1 TAB PO BID, (Reported) Ciprofloxacin Hcl 250 Mg Tablet, 1 TAB PO BID Prescribed by: DAVID KHAN on 02/28/11 174 Omeprazole 20 Mg Capsule.dr, 20 MG PO daily, (Reported) [Risperdal1 M2] , 1 MG PO DAILY, (Reported) Patient Home Medication List Home Medication List Reviewed: Yes Review of Systems Constitutional: see HPI EENTM: see HPI Respiratory: no symptoms reported Cardiovascular: no symptoms reported Genitourinary: no symptoms reported Musculoskeletal: see HPI Skin: no symptoms reported Psychiatric/Neurological: No Symptoms Reported Physical Exam Vital Signs Vital Signs - First Documented 11/03/18 13:22 Temp 97.0 Pulse 91 Resp 16 B/P (MAP) 114/78 (90) Pulse Ox 100 Capillary Refill : Height, Weight, BMI Height: '" Weight: lbs. oz. kg; BMI Method:Stated General Appearance: WD/WN, no apparent distress HEENT: PERRL/EOMI, normal ENT inspection Respiratory: no respiratory distress, no accessory muscle use Shoulder: normal inspection, non-tender Elbow/Forearm: normal inspection, non-tender, no evidence of injury Hand: Right, swelling (ecchymosis and swelling to the right ring finger.) Neurologic/Psychiatric: alert Skin: normal color, warm/dry Progress/Results/Core Measures Results/Orders My Orders Orders - KY ROSADO APRN Hand, Right, 3 Views (11/03/18 13:25) Hydrocodone/Apap 5/325 Tablet (Lortab 5 (11/03/18 13:45) Vital Signs/I&O 11/03/18 13:22 Temp 97.0 Pulse 91 Resp 16 B/P (MAP) 114/78 (90) Pulse Ox 100 Departure Impression Primary Impression: Finger fracture Qualified Codes: S62.644A - Nondisplaced fracture of proximal phalanx of right ring finger, initial encounter for closed fracture Disposition: 01 HOME, SELF-CARE Condition: Stable Departure-Patient Inst. Decision time for Depature: 13:43 Referrals: [facility] (PCP/Family) Primary Care Physician Patient Instructions: Finger Fracture (DC) Add. Discharge Instructions: 1. Ice will help, pain medication as directed. Wear the splint at all times for the next 3-4 weeks. Follow-up with primary care. Scripts Hydrocodone/Acetaminophen ([place] 5-325 Tablet) 1 Each Tablet 1 EACH PO Q6H PRN for PAIN-MODERATE MDD 10, #14 TAB Prov: KY ROSADO APRN 11/03/18 KY ROSADO APRN Nov 03, 2018 13:29
[2018-11-03] MEDS ORDERED: HYDR-4226 PO (13:43)
[2018-11-03] MEDS ORDERED: HYDROcodone/APAP 5 MG/325 MG (LORTAB) TAB PO ONE (13:45)
--- NOTE | 2018-11-03 13:47 | Diagnostic Imaging Report ---
Indication: Injury to right hand. AP, oblique, lateral views of the right hand are obtained. There is a fracture of the fourth proximal phalanx which may be acute or subacute. There is no significant displacement or angulation. Some underlying degenerative change of the interphalangeal joints. Impression: Acute versus subacute fracture of the fourth proximal phalanx as above. Underlying degenerative findings. Dictated by: Dictated on workstation # [id number]
[2018-11-03 13:58] VITALS: BP 114/78
== END 2018-11-03 14:03 | disposition home or self-care (01) ==
LOC: EDUNIT# 13:12 → ER 13:13
DX: S62.644A Nondisplaced fracture of proximal phalanx of right ring finger, initial encounter for closed fracture (principal); Z88.8 Allergy status to other drugs, medicaments and biological substances; W23.1XXA Caught, crushed, jammed, or pinched between stationary objects, initial encounter
CPT/HCPCS: 73130

== ENCOUNTER 2020-07-23 13:01 | Emergency (ER) | payer MEDICARE, MEDICAID ==
[~2020-07-23] VITALS: Ht 152.4 cm; Wt 40.0 kg
[~2020-07-23 13:01] MED LIST changes: +HYDR-4226 PO
[2020-07-23] MEDS ORDERED: HYDROcodone/APAP 5 MG/325 MG (LORTAB) TAB PO ONE (13:45)
--- NOTE | 2020-07-23 13:48 | ED Upper Extremity ---
General Chief Complaint: Upper Extremity Stated Complaint: R SHOULDER PAIN; R THUMB PAIN Nursing Triage Note: Pt wheeled to FT1 via personal w/c accompanied by caregiver with c/o R shoulder et R thumb injury. Caregiver reports this morning, pt was "rolled into postition in her recliner with her R arm stuck up under her." Caregiver reports decreased movement to R shoulder since injury. Moderate swelling noted to R shoulder. 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 Pt arrives with pressure drsg to R thumb. Pt noted to be nonverbal with profound intellectual disabilities. Nursing Sepsis Screen: No Definite Risk Source: caregiver Exam Limitations: no limitations History of Present Illness Date Seen by Provider: Jul 23, 2020 Time Seen by Provider: 13:46 Initial Comments To ER by private vehicle accompanied by her caregiver with whom she lives with reports of right arm injury. Patient has severe mental handicap, sits with her arms beneath her most of the time in the chair, she is nonverbal. Caregiver was trimming her fingernails and cut a bit of skin from the right thumb today. Right arm pain seems to be originating in the shoulder. No known injury. Onset: just prior to arrival Severity: moderate Pain/Injury Location: right shoulder, right thumb Modifying Factors: Worse With Movement Allergies and Home Medications Allergies Uncoded Allergies: TB SKIN TEST (Allergy, 02/28/11) Home Medications Buspirone Hcl 10 Mg Tablet, 1 TAB PO BID, (Reported) Ciprofloxacin Hcl 250 Mg Tablet, 1 TAB PO BID Prescribed by: DAVID KHAN on 02/28/11 1742 Docusate Sodium 100 Mg Capsule, 100 MG PO BID Prescribed by: KY ROSADO on 07/23/20 1414 Hydrocodone/Acetaminophen 1 Each Tablet, 1 EACH PO Q6H PRN for PAIN-MODERATE Prescribed by: KY ROSADO on 11/03/18 1343 Hydrocodone/Acetaminophen 1 Each Tablet, 1 EACH PO Q4H PRN for PAIN-MODERATE (5- 7) Prescribed by: KY ROSADO on 07/23/20 1414 Omeprazole 20 Mg Capsule.dr, 20 MG PO daily, (Reported) [Risperdal1 M2] , 1 MG PO DAILY, (Reported) Patient Home Medication List Home Medication List Reviewed: Yes Review of Systems Constitutional: see HPI EENTM: see HPI Respiratory: no symptoms reported Cardiovascular: no symptoms reported Genitourinary: no symptoms reported Musculoskeletal: see HPI Skin: no symptoms reported Psychiatric/Neurological: No Symptoms Reported Past Czrlmfd-Bxeafo-Tkxvlf Hx Patient Social History Alcohol Use: Denies Use Recreational Drug Use: No Smoking Status: Never a Smoker Recent Foreign Travel: No Contact w/Someone Who Travel: No Recent Infectious Disease Expo: No Recent Hopitalizations: No Immunizations Up To Date Tetanus Booster (TDap): Less than 5yrs Seasonal Allergies Seasonal Allergies: No Past Medical History Surgeries: No Respiratory: No Cardiac: No Neurological: Yes Developmental Disorder Genitourinary: Yes UTI-Chronic Gastrointestinal: No Musculoskeletal: No Endocrine: No HEENT: No Cancer: No Psychosocial: Yes Anxiety Integumentary: No Blood Disorders: No Physical Exam Vital Signs Vital Signs - First Documented 07/23/20 13:13 Temp 35.9 Pulse 103 Resp 18 B/P (MAP) 139/98 (112) Pulse Ox 96 O2 Delivery Room Air Capillary Refill : Less Than 3 Seconds Height, Weight, BMI Height: 4'9.00" Weight: 86lbs. oz. 39.985535dr; 17.00 BMI Method:Stated General Appearance: WD/WN, no apparent distress Respiratory: no respiratory distress, no accessory muscle use Shoulder: deformity, limited ROM, pain, soft tissue tenderness, swelling Elbow/Forearm: normal inspection, non-tender Wrist: Yes normal inspection, Yes non-tender Neurologic/Psychiatric: alert, normal mood/affect, oriented x 3 Skin: normal color, warm/dry Procedures/Interventions Other Closure Supply: Mastisol Progress/Results/Core Measures Results/Orders My Orders Orders - KY ROSADO APRN Shoulder, Right, 3 Views (07/23/20 13:35) Hydrocodone/Apap 5/325 Tablet (Lortab 5 (07/23/20 13:45) Medications Given in ED Current Medications Medications Dose Ordered Sig/Kayla Route Start Time Stop Time Status Last Admin Dose Admin Acetaminophen/ Hydrocodone Bitart 1 tab ONCE ONCE PO 07/23/20 13:45 07/23/20 13:46 DC 07/23/20 13:57 1 TAB Vital Signs/I&O 07/23/20 13:13 Temp 35.9 Pulse 103 Resp 18 B/P (MAP) 139/98 (112) Pulse Ox 96 O2 Delivery Room Air Blood Pressure Mean: 112 Diagnostic Imaging Diagonstic Imaging: Xray Comments NAME: JULIETTE REZA [facility] REC#: [id number] PT STATUS: REG ER : 1955 PHYSICIAN: KY ROSADO APRN ADMIT DATE: 07/23/20/ER Draft Date of Exam:07/23/20 SHOULDER, RIGHT, 3 VIEWS EXAM: SHOULDER, RIGHT, 3 VIEWS INDICATION: Right shoulder injury and pain. COMPARISON: None. FINDINGS/ IMPRESSION: Comminuted mildly angulated and displaced fractures through the proximal right humeral metaphysis. No dislocation of the humeral head. Visualized ribs, scapula and clavicle appear intact. Dictated on workstation # [id number] Dict: 07/23/20 1408 Trans: 07/23/20 1415 CV [id number] Interpreted by: NIXON BUSBY MD Electronically signed by: Departure Communication (Admissions) She has a strong radial pulse and moves all of her fingers. Caregiver denies witnessing any falls at home.. The skin on the thumb was cleansed with chlorhexidine and covered with tissue adhesive. We will immobilize the shoulder with a shoulder immobilizer and provide a prescription for pain control and orthopedic follow-up. Impression Primary Impression: Proximal humerus fracture Additional Impression: Skin avulsion Disposition: 01 HOME, SELF-CARE Condition: Stable Departure-Patient Inst. Decision time for Depature: 14:12 Referrals: [facility] (PCP/Family) Primary Care Physician VICKY REESE MD, MICHAEL P MD Patient Instructions: Upper Arm Fracture Add. Discharge Instructions: 1. Keep the immobilizer on at all times. Ice pack to the shoulder. Pain medication as directed. Call an orthopedic surgeon of your choosing on Saturday to make an appointment to be seen for follow-up within the next few weeks. All discharge instructions reviewed with patient and/or family. Voiced understanding. Scripts Docusate Sodium (Colace) 100 Mg Capsule 100 MG PO BID, #20 CAP Prov: KY ROSADO APRN 07/23/20 Hydrocodone/Acetaminophen (Hydrocodone-Acetamin 5-325 mg) 1 Each Tablet 1 EACH PO Q4H PRN for PAIN-MODERATE (5-7), #30 TAB Prov: KY ROSADO APRN 07/23/20 KY ROSADO APRN Jul 23, 2020 13:48
[2020-07-23] MEDS ORDERED: DOCU-143 PO (14:14)
[2020-07-23] MEDS ORDERED: ACHD5005 PO (14:14)
--- NOTE | 2020-07-23 14:16 | Diagnostic Imaging Report ---
EXAM: SHOULDER, RIGHT, 3 VIEWS INDICATION: Right shoulder injury and pain. COMPARISON: None. FINDINGS/ IMPRESSION: Comminuted mildly angulated and displaced fractures through the proximal right humeral metaphysis. No dislocation of the humeral head. Visualized ribs, scapula and clavicle appear intact. Dictated by: Dictated on workstation # [id number]
[2020-07-23 14:20] VITALS: BP 139/98
== END 2020-07-23 14:20 | disposition home or self-care (01) ==
LOC: EDUNIT# 13:01 → ER 13:05
DX: S42.291A Other displaced fracture of upper end of right humerus, initial encounter for closed fracture (principal); S61.101A Unspecified open wound of right thumb with damage to nail, initial encounter; F41.9 Anxiety disorder, unspecified; X58.XXXA Exposure to other specified factors, initial encounter
CPT/HCPCS: 73030

== ENCOUNTER 2020-07-26 11:57 | Emergency (ER) | payer MEDICARE, MEDICAID ==
[~2020-07-26] VITALS: Ht 152 cm; Wt 39.0 kg
[~2020-07-26 11:57] MED LIST changes: +ACHD5005 PO; +DOCU-143 PO
[2020-07-26] MEDS ORDERED: ONDANSETRON 4 MG/2 ML (SDV) Z0FRAN IVP ONE (13:00)
[2020-07-26] MEDS ORDERED: NS IV 1000 ML 1,000 ML IV SCH (13:00)
--- NOTE | 2020-07-26 13:45 | Diagnostic Imaging Report ---
INDICATION: Abnormal breath sounds. TECHNIQUE: Frontal chest obtained at 01:16 p.m. COMPARISON: There is no prior chest x-ray for comparison. FINDINGS: The study is limited by very poor inspiration. There is a probable large hiatal hernia. There is no focal infiltrate or pneumothorax or pleural fluid. IMPRESSION: Poor inspiration. Probable large hiatal hernia. No focal infiltrate or pneumothorax or pleural fluid. Dictated by: Dictated on workstation # [id number]
--- NOTE | 2020-07-26 13:56 | ED General ---
General Stated Complaint: REFUSING TO DRINK, SOUNDS RASPY Source of Information: Patient Exam Limitations: No Limitations History of Present Illness Date Seen by Provider: Jul 26, 2020 Time Seen by Provider: 13:56 Allergies and Home Medications Allergies Uncoded Allergies: TB SKIN TEST (Allergy, 02/28/11) Home Medications Buspirone Hcl 10 Mg Tablet, 1 TAB PO BID, (Reported) Ciprofloxacin Hcl 250 Mg Tablet, 1 TAB PO BID Prescribed by: DAVID KHAN on 02/28/11 1742 Docusate Sodium 100 Mg Capsule, 100 MG PO BID Prescribed by: KY ROSADO on 07/23/20 1414 Hydrocodone/Acetaminophen 1 Each Tablet, 1 EACH PO Q6H PRN for PAIN-MODERATE Prescribed by: KY ROSADO on 11/03/18 1343 Hydrocodone/Acetaminophen 1 Each Tablet, 1 EACH PO Q4H PRN for PAIN-MODERATE (5- 7) Prescribed by: KY ROSADO on 07/23/20 1414 Omeprazole 20 Mg Capsule.dr, 20 MG PO daily, (Reported) [Risperdal1 M2] , 1 MG PO DAILY, (Reported) Patient Home Medication List Home Medication List Reviewed: Yes Review of Systems Review of Systems Constitutional: see HPI EENTM: see HPI Respiratory: no symptoms reported Cardiovascular: no symptoms reported Genitourinary: no symptoms reported Musculoskeletal: no symptoms reported Skin: no symptoms reported Psychiatric/Neurological: No Symptoms Reported Hematologic/Lymphatic: No Symptoms Reported Immunological/Allergic: no symptoms reported Past Gdbxsxt-Ivolwt-Mvkyoh Hx Patient Social History Recent Foreign Travel: No Contact w/Someone Who Travel: No Recent Hopitalizations: No Immunizations Up To Date Tetanus Booster (TDap): Less than 5yrs Seasonal Allergies Seasonal Allergies: No Past Medical History Surgeries: No Respiratory: No Cardiac: No Neurological: Yes Developmental Disorder Genitourinary: Yes UTI-Chronic Gastrointestinal: No Musculoskeletal: No Endocrine: No HEENT: No Cancer: No Psychosocial: Yes Anxiety Integumentary: No Blood Disorders: No Physical Exam Vital Signs Vital Signs - First Documented 07/26/20 12:41 Temp 36.9 Pulse 120 Resp 20 B/P (MAP) 109/76 (87) Pulse Ox 95 O2 Delivery Room Air Capillary Refill : Height, Weight, BMI Height: 4'9.00" Weight: 86lbs. oz. 39.820170rd; 17.00 BMI Method:Stated General Appearance: No Apparent Distress, WD/WN Eyes: Bilateral Eye Normal Inspection, Bilateral Eye PERRL, Bilateral Eye EOMI HEENT: PERRL/EOMI, Normal ENT Inspection Neck: Full Range of Motion, Normal Inspection Respiratory: No Accessory Muscle Use, No Respiratory Distress Gastrointestinal: Non Tender, Soft Extremity: Normal Capillary Refill, Normal Inspection, Other (bruising and swelling to the right shoulder.) Neurologic/Psychiatric: Alert Skin: Normal Color, Warm/Dry Progress/Results/Core Measures Suspected Sepsis SIRS Temperature: Pulse: Respiratory Rate: Laboratory Tests 07/26/20 14:00: White Blood Count 10.4 Blood Pressure / Mean: Laboratory Tests 07/26/20 14:00: Creatinine 0.61, Platelet Count 332, Total Bilirubin 0.2 Results/Orders Lab Results Laboratory Tests Test 07/26/20 14:00 07/26/20 14:40 Range/Units White Blood Count 10.4 4.3-11.0 10^3/uL Red Blood Count 4.55 3.80-5.11 10^6/uL Hemoglobin 14.6 11.5-16.0 g/dL Hematocrit 45 35-52 % Mean Corpuscular Volume 98 80-99 fL Mean Corpuscular Hemoglobin 32 25-34 pg Mean Corpuscular Hemoglobin Concent 33 32-36 g/dL Red Cell Distribution Width 11.9 10.0-14.5 % Platelet Count 332 130-400 10^3/uL Mean Platelet Volume 10.1 9.0-12.2 fL Immature Granulocyte % (Auto) 1 % Neutrophils (%) (Auto) 73 42-75 % Lymphocytes (%) (Auto) 17 12-44 % Monocytes (%) (Auto) 7 0-12 % Eosinophils (%) (Auto) 2 0-10 % Basophils (%) (Auto) 0 0-10 % Neutrophils # (Auto) 7.6 1.8-7.8 10^3/uL Lymphocytes # (Auto) 1.8 1.0-4.0 10^3/uL Monocytes # (Auto) 0.7 0.0-1.0 10^3/uL Eosinophils # (Auto) 0.2 0.0-0.3 10^3/uL Basophils # (Auto) 0.0 0.0-0.1 10^3/uL Immature Granulocyte # (Auto) 0.1 0.0-0.1 10^3/uL Sodium Level 136 135-145 MMOL/L Potassium Level 4.3 3.6-5.0 MMOL/L Chloride Level 103 98-107 MMOL/L Carbon Dioxide Level 22 21-32 MMOL/L Anion Gap 11 5-14 MMOL/L Blood Urea Nitrogen 12 7-18 MG/DL Creatinine 0.61 0.60-1.30 MG/DL Estimat Glomerular Filtration Rate > 60 BUN/Creatinine Ratio 20 Glucose Level 125 H 70-105 MG/DL Calcium Level 10.0 8.5-10.1 MG/DL Corrected Calcium 10.0 8.5-10.1 MG/DL Total Bilirubin 0.2 0.1-1.0 MG/DL Aspartate Amino Transf (AST/SGOT) 29 5-34 U/L Alanine Aminotransferase (ALT/SGPT) 23 0-55 U/L Alkaline Phosphatase 122 40-136 U/L Total Protein 7.4 6.4-8.2 GM/DL Albumin 4.0 3.2-4.5 GM/DL Urine Color YELLOW Urine Clarity CLEAR Urine pH 5.5 5-9 Urine Specific [place] 1.025 H 1.016-1.022 Urine Protein NEGATIVE NEGATIVE Urine Glucose (UA) NEGATIVE NEGATIVE Urine Ketones NEGATIVE NEGATIVE Urine Nitrite NEGATIVE NEGATIVE Urine Bilirubin NEGATIVE NEGATIVE Urine Urobilinogen 0.2 < = 1.0 MG/DL Urine Leukocyte Esterase NEGATIVE NEGATIVE Urine RBC (Auto) NEGATIVE NEGATIVE Urine RBC 0-2 /HPF Urine WBC 2-5 /HPF Urine Squamous Epithelial Cells 2-5 /HPF Urine Crystals NONE /LPF Urine Bacteria TRACE /HPF Urine Casts NONE /LPF Urine Mucus SMALL H /LPF Urine Culture Indicated NO My Orders Orders - KY ROSADO APRN Cbc With Automated Diff (07/26/20 12:51) Comprehensive Metabolic Panel (07/26/20 12:51) Ua Culture If Indicated (07/26/20 12:51) Ed Iv/Invasive Line Start (07/26/20 12:51) Chest 1 View, Ap/Pa Only (07/26/20 12:51) Ns Iv 1000 Ml (Sodium Chloride 0.9%) (07/26/20 13:00) Ondansetron Injection (Zofran Injectio (07/26/20 13:00) Fentanyl Injection (Sublimaze Injection (07/26/20 14:30) Medications Given in ED Current Medications Medications Dose Ordered Sig/Kayla Route Start Time Stop Time Status Last Admin Dose Admin Fentanyl Citrate 25 mcg ONCE PRN IVP 07/26/20 14:30 07/26/20 14:50 25 MCG Ondansetron HCl 4 mg ONCE ONCE IVP 07/26/20 13:00 07/26/20 13:01 DC 07/26/20 14:02 4 MG Vital Signs/I&O 07/26/20 07/26/20 12:41 14:50 Temp 36.9 36.9 Pulse 120 Resp 20 B/P (MAP) 109/76 (87) Pulse Ox 95 O2 Delivery Room Air Capillary Refill : Departure Impression Primary Impression: Proximal humerus fracture Disposition: HOME, SELF-CARE Condition: Stable Departure-Patient Inst. Decision time for Depature: 15:48 Referrals: [facility] (PCP/Family) Primary Care Physician Patient Instructions: NO INSTRUCTIONS GIVEN Add. Discharge Instructions: 1. RETURN TO ER FOR ANY CONCERNS 2 sEE HER DOCTOR THIS WEEK FOR RECHECK. KY ROSADO TECHNOLOGY [employer] TEACHER Jul 26, 2020 13:56
[2020-07-26 14:05] LABS: BASOPHILS % (AUTO) 0 % (0-10); EOSINOPHILS # (AUTO) 0.2 10^3/uL (0.0-0.3); EOSINOPHILS % (AUTO) 2 % (0-10); HEMATOCRIT 45 % (35-52); HEMOGLOBIN 14.6 g/dL (11.5-16.0); LYMPHOCYTES # (AUTO) 1.8 10^3/uL (1.0-4.0); LYMPHOCYTES % (AUTO) 17 % (12-44); MEAN CORPUSCULAR HEMOGLOBIN 32 pg (25-34); MEAN CORPUSCULAR HGB CONC 33 g/dL (32-36); MEAN CORPUSCULAR VOLUME 98 fL (80-99); MEAN PLATELET VOLUME 10.1 fL (9.0-12.2); MONOCYTES # (AUTO) 0.7 10^3/uL (0.0-1.0); MONOCYTES % (AUTO) 7 % (0-12); NEUTROPHILS # (AUTO) 7.6 10^3/uL (1.8-7.8); NEUTROPHILS % (AUTO) 73 % (42-75); PLATELET COUNT 332 10^3/uL (130-400); WHITE BLOOD COUNT 10.4 10^3/uL (4.3-11.0)
[2020-07-26 14:19] LABS: CHLORIDE 103 MMOL/L (98-107); POTASSIUM 4.3 MMOL/L (3.6-5.0); SODIUM 136 MMOL/L (135-145)
[2020-07-26 14:21] LABS: GLUCOSE 125 MG/DL (70-105)
[2020-07-26 14:22] LABS: TOTAL PROTEIN 7.4 GM/DL (6.4-8.2)
[2020-07-26 14:23] LABS: BILIRUBIN,TOTAL 0.2 MG/DL (0.1-1.0); CARBON DIOXIDE 22 MMOL/L (21-32)
[2020-07-26 14:25] LABS: ALKALINE PHOSPHATASE 122 U/L (40-136); CREATININE SERUM 0.61 MG/DL (0.60-1.30); GFR ESTIMATED > 60
[2020-07-26 14:26] LABS: BUN/CREATININE RATIO 20
[2020-07-26 14:28] LABS: ALANINE AMINOTRANSFERASE 23 U/L (0-55)
[2020-07-26] MEDS ORDERED: fentaNYL INJECTION 100 MCG/2 ML AMP IVP PRN (14:30)
[2020-07-26 14:53] LABS: BILIRUBIN,URINE NEGATIVE (NEGATIVE); CLARITY,URINE CLEAR; COLOR,URINE YELLOW; GLUCOSE, URINE (UA) NEGATIVE (NEGATIVE); KETONES,URINE NEGATIVE (NEGATIVE); LEUKOCYTE ESTERASE ,URINE NEGATIVE (NEGATIVE); NITRITE,URINE NEGATIVE (NEGATIVE); PH,URINE 5.5 (5-9); PROTEIN,URINE NEGATIVE (NEGATIVE)
[2020-07-26 15:05] LABS: BACTERIA,URINE TRACE /HPF; RBC,URINE 0-2 /HPF
--- NOTE | 2020-07-26 15:50 | NUR ---
THIS RN NEVER HEARD THE PT COUGH OR HAVE ANY "RASPY" SOUND WHILE BREATHING.
[2020-07-26 16:00] VITALS: BP 109/76
== END 2020-07-26 16:00 | disposition home or self-care (01) ==
LOC: EDUNIT# 11:57 → ER 11:58
DX: S42.291A Other displaced fracture of upper end of right humerus, initial encounter for closed fracture (principal); F41.9 Anxiety disorder, unspecified; X58.XXXA Exposure to other specified factors, initial encounter
CPT/HCPCS: 36415; 71045; 80053; 81000; 85025

== ENCOUNTER → 2020-08-01 | Outpatient (CLI) | payer MEDICARE, MEDICAID | LOC: ORTHO 10:10 | PROVIDERS: ATTEND Orthopaedic Surgery | DX: S42.291A Other displaced fracture of upper end of right humerus, initial encounter for closed fracture (principal) ==

== ENCOUNTER → 2020-08-15 | Outpatient (CLI) | payer MEDICARE, MEDICAID ==
--- NOTE | 2020-08-15 09:42 | Diagnostic Imaging Report ---
EXAMINATION: Right shoulder radiographs, 3 views. COMPARISON: July 23, 2020. HISTORY: 65-year-old female, history of right proximal humerus fracture. Evaluation for healing. FINDINGS: There is a comminuted displaced fracture of the right proximal humerus involving at least the proximal humeral metadiaphysis. The primary distal fracture fragment is displaced laterally by 1.5 cm. This is increasingly displaced since the comparison study and previously was approximately 6 mm displaced laterally. The acromioclavicular joint is normally aligned. There are no prominent acromioclavicular degenerative changes. There is no obvious dislocation of the humeral head relative to the glenoid. IMPRESSION: 1. Comminuted displaced fracture of the right proximal humeral metadiaphysis with increasing displacement of the primary distal fracture fragment laterally currently displaced by 1.5 cm compared to 0.6 cm previously. Dictated by: Dictated on workstation # [id number]
== END ==
LOC: ORTHO 09:00
PROVIDERS: ATTEND Orthopaedic Surgery
DX: S42.351D Displaced comminuted fracture of shaft of humerus, right arm, subsequent encounter for fracture with routine healing (principal)
CPT/HCPCS: 73030

== ENCOUNTER 2020-08-29 10:34 | Emergency (ER) | payer MEDICARE, MEDICAID ==
[~2020-08-29] VITALS: Ht 152.4 cm; Wt 37.7 kg
[2020-08-29 10:38] VITALS: BP 108/57
--- NOTE | 2020-08-29 10:53 | ED General ---
General Chief Complaint: General Problems/Pain Stated Complaint: DIFFICUALTY OBTAING STATS History of Present Illness Date Seen by Provider: Aug 29, 2020 Time Seen by Provider: 10:40 Initial Comments 65-year-old female brought in because she was being seen at the orthopedic office they had difficulty obtaining her O2 saturations in her blood pressure. Patient is chronically ill, has no acute complaints. Staff reports that she is has reversed her days and nights and sleeps during the day and is more alert and awake at night. Patient has been progressively having some weight loss but nothing acute. She is brought in just because they wanted her evaluated since he were having difficulty with her vital signs due to her fraility at the orthopedic office. Allergies and Home Medications Allergies Uncoded Allergies: TB SKIN TEST (Allergy, Unknown, 07/26/20) Home Medications Buspirone Hcl 10 Mg Tablet, 1 TAB PO BID, (Reported) Ciprofloxacin Hcl 250 Mg Tablet, 1 TAB PO BID Prescribed by: DAVID KHAN on 02/28/11 1742 Docusate Sodium 100 Mg Capsule, 100 MG PO BID Prescribed by: KY ROSADO on 07/23/20 1414 Hydrocodone/Acetaminophen 1 Each Tablet, 1 EACH PO Q6H PRN for PAIN-MODERATE Prescribed by: KY ROSADO on 11/03/18 1343 Hydrocodone/Acetaminophen 1 Each Tablet, 1 EACH PO Q4H PRN for PAIN-MODERATE (5- 7) Prescribed by: KY ROSADO on 07/23/20 1414 Omeprazole 20 Mg Capsule.dr, 20 MG PO daily, (Reported) [Risperdal1 M2] , 1 MG PO DAILY, (Reported) Patient Home Medication List Home Medication List Reviewed: Yes Review of Systems Review of Systems Constitutional: No chills, No fever Respiratory: no symptoms reported Cardiovascular: no symptoms reported Gastrointestinal: no symptoms reported Genitourinary: no symptoms reported Skin: no symptoms reported Psychiatric/Neurological: No Symptoms Reported Past Swmuknj-Rieovf-Bssctv Hx Past Med/Social Hx: Reviewed Nursing Past Med/Soc Hx Patient Social History 2nd Hand Smoke Exposure: No Recent Foreign Travel: No Contact w/Someone Who Travel: No Recent Hopitalizations: No Immunizations Up To Date Tetanus Booster (TDap): Less than 5yrs Seasonal Allergies Seasonal Allergies: No Past Medical History Surgeries: No Respiratory: No Cardiac: No Neurological: Yes (MR) Developmental Disorder Genitourinary: Yes UTI-Chronic Gastrointestinal: No Musculoskeletal: No Endocrine: No HEENT: No Cancer: No Psychosocial: Yes Anxiety Integumentary: No Blood Disorders: No Physical Exam Vital Signs Capillary Refill : Height, Weight, BMI Height: 4'9.00" Weight: 86lbs. oz. 39.690914nb; 16.00 BMI Method:Stated General Appearance: Chronically ill, Cachetic, Other (frail) Respiratory: Lungs Clear, Normal Breath Sounds Cardiovascular: Regular Rate, Rhythm, No Edema Gastrointestinal: Non Tender Progress/Results/Core Measures Suspected Sepsis SIRS Temperature: Pulse: Respiratory Rate: Blood Pressure / Mean: Results/Orders Vital Signs/I&O Capillary Refill : Progress Note : Time: 10:51 Progress Note Patient's vital signs were normal with oxygen saturations mid 90s and blood pressure systolic 108. Discussed with care worker that this time she is having just chronic illness and ability and that from an ER standpoint no further evaluation is warranted since her are no acute changes and findings. I did recommend they keep their appointment in 2 days to discuss hospice and comfort care. Patient stable only discharged back to the care Departure Impression Primary Impression: Frailty Additional Impression: Debility Disposition: HOME, SELF-CARE Condition: Stable Departure-Patient Inst. Referrals: [facility] (PCP) Primary Care Physician STEVE QUIROS (Family) Primary Care Physician Patient Instructions: Generalized Weakness Add. Discharge Instructions: Keep your appointment on Saturday with your primary care provider for further hospice and comfort care discussion All discharge instructions reviewed with patient and/or family. Voiced understanding. RYNE GRIFFIN DO Aug 29, 2020 10:53
== END 2020-08-29 10:57 | disposition home or self-care (01) ==
LOC: EDUNIT# 10:34 → ER 10:37
DX: R54 Age-related physical debility (principal); F41.9 Anxiety disorder, unspecified
CPT/HCPCS: 99281

== ENCOUNTER → 2020-08-29 | Outpatient (CLI) | payer MEDICARE, MEDICAID ==
--- NOTE | 2020-08-29 09:52 | Diagnostic Imaging Report ---
INDICATION: Followup humerus fracture. COMPARISON: 08/15/2020. FINDINGS: Two radiographic views of the right shoulder were obtained. Again identified is a nonacute fracture of the proximal humeral shaft just distal to the surgical neck. Since the previous exam, there has been interval development of moderate angulation at the fracture site with the apex projecting laterally. There may be some early bridging soft tissue calcification. The glenohumeral joint space remains intact. The included portions of the right hemithorax are clear. No new acute osseous abnormality is seen. IMPRESSION: Redemonstration of the nonacute fracture of the proximal right humerus. Again, there has been interval development of moderate angulation at the fracture site. Dictated by: Dictated on workstation # [id number]
== END ==
LOC: ORTHO 09:18
PROVIDERS: ATTEND Orthopaedic Surgery
DX: S42.351D Displaced comminuted fracture of shaft of humerus, right arm, subsequent encounter for fracture with routine healing (principal); X58.XXXD Exposure to other specified factors, subsequent encounter
CPT/HCPCS: 73030